=== PATIENT | male | born 1955 | race African-American/Black ===

== ENCOUNTER 2018-07-01 15:40 | Inpatient (IN) | payer SELFPAY ==
[~2018-07-01] VITALS: Ht 188 cm; Wt 40.4 kg
[2018-07-01 15:42] VITALS: BP 222/117
--- NOTE | 2018-07-01 15:42 | NUR ---
ED Nurse Note: Marily nice c/o hypertension today, patient reports of having nauea for 4 days a well, at time of arrival patients blood pressure was 243/117. patient denies any loss of consciousness, denies any vision changes. patient is alert and oriented x4. denies any pain, 2 20 gauges started on patients left hand.
--- NOTE | 2018-07-01 15:49 | Emergency Room Report ---
History of Present Illness General Chief Complaint: Hypertension Source: Patient Present Illness HPI Patient is a 62-year-old male brought in by EMS after increased blood pressure. Patient was noted to have prior history of hypertension. He reports having recently been taken off of his nifedipine extended release. Patient normally takes hydralazine as well Coreg. He reports having some increased generalized weakness. Reports having some prior history of congestive heart failure. He states that he is currently a smoker.Patient denies any fever or vomiting. He reports having prior history of chronic back pain for which he takes gabapentin but is been out of this lately. Allergies: Coded Allergies: No Known Allergies (Unverified , 07/01/18) Patient History Past Medical History: see triage record Reviewed Nursing Documentation: PMH: Agreed; PSxH: Agreed Physical Exam Vital Signs Date Time Temp Pulse Resp B/P (MAP) Pulse Ox O2 Delivery O2 Flow Rate FiO2 07/01/18 15:36 69 16 222/117 6 Room Air Sp02 EP Interpretation: reviewed, normal General Appearance: normal inspection, well appearing, no apparent distress, alert, GCS 15, Chronically Ill Head: atraumatic ENT: normal ENT inspection, hearing grossly normal, normal voice, other - poor dentition Neck: normal inspection, full range of motion, supple, no bony tend Respiratory: normal inspection, no respiratory distress, no retraction, wheezing Cardiovascular #1: regular rate, rhythm, no edema Gastrointestinal: normal inspection, normal bowel sounds, non tender, soft, no guarding, no hernia Genitourinary: no CVA tenderness Musculoskeletal: normal inspection, back normal, normal range of motion Neurologic: normal inspection, alert, oriented x3, responsive, rapid transit operator III-XII nml as tested, speech normal Psychiatric: normal inspection, judgement/insight normal, mood/affect normal Skin: normal inspection, normal color, no rash Medical Decision Making Diagnostic Impression: Primary Impression: Uncontrolled hypertension Additional Impression: Hyponatremia ER Course . Patient presented for uncontrolled blood pressure and generalized weakness. Differential diagnosis include was not limited to myocardial infarction, hypertensive crisis, renal failure, substance abuse among others. Because of complexity of patient's case laboratory testing and imaging studies were ordered. Patient was noted to have elevated blood pressure and was started on IV hydralazine as well as given dose of Coreg. Patient was noted to have normal mental status. He states he had prior history of CHF. Urine drug screen was noted to be negative. EKG interpreted by me showed left ventricular hypertrophy with nonspecific ST changes. Patient's initial troponin was noted to be negative. Patient's BNP was noted to be somewhat elevated.Patient was noted to have some continued high blood pressure and was given clonidine. Dr. Isabel Melendez was contacted for inpatient management Laboratory Tests Test 07/04/18 05:10 07/04/18 17:15 07/05/18 05:38 White Blood Count 5.4 K/UL (4.8-10.8) 3.7 K/UL (4.8-10.8) L Red Blood Count 4.40 M/UL (4.70-6.10) L 3.94 M/UL (4.70-6.10) L Hemoglobin 13.2 G/DL (14.2-18.0) L 11.9 G/DL (14.2-18.0) L Hematocrit 39.7 % (42.0-52.0) L 35.1 % (42.0-52.0) L Mean Corpuscular Volume 90 FL (80-99) 89 FL (80-99) Mean Corpuscular Hemoglobin 30.0 PG (27.0-31.0) 30.3 PG (27.0-31.0) Mean Corpuscular Hemoglobin Concent 33.2 G/DL (32.0-36.0) 33.9 G/DL (32.0-36.0) Red Cell Distribution Width 13.7 % (11.6-14.8) 13.3 % (11.6-14.8) Platelet Count 241 K/UL (150-450) 193 K/UL (150-450) Mean Platelet Volume 6.6 FL (6.5-10.1) 6.6 FL (6.5-10.1) Neutrophils (%) (Auto) 76.3 % (45.0-75.0) H % (45.0-75.0) Lymphocytes (%) (Auto) 8.6 % (20.0-45.0) L % (20.0-45.0) Monocytes (%) (Auto) 13.5 % (1.0-10.0) H % (1.0-10.0) Eosinophils (%) (Auto) 0.7 % (0.0-3.0) % (0.0-3.0) Basophils (%) (Auto) 0.9 % (0.0-2.0) % (0.0-2.0) Sodium Level 127 MMOL/L (136-145) L 129 MMOL/L (136-145) L Potassium Level 4.2 MMOL/L (3.5-5.1) 4.3 MMOL/L (3.5-5.1) Chloride Level 94 MMOL/L (98-107) L 97 MMOL/L (98-107) L Carbon Dioxide Level 23 MMOL/L (21-32) 22 MMOL/L (21-32) Anion Gap 10 mmol/L (5-15) 10 mmol/L (5-15) Blood Urea Nitrogen 13 mg/dL (7-18) 16 mg/dL (7-18) Creatinine 1.5 MG/DL (0.55-1.30) H 1.4 MG/DL (0.55-1.30) H Estimate Glomerular Filtration Rate 57.4 mL/min (>60) > 60 mL/min (>60) Glucose Level 129 MG/DL (74-106) H 96 MG/DL (74-106) Osmolality 268 mOsm/kg (297-317) L 271 mOsm/kg (297-317) L Uric Acid 5.9 MG/DL (2.6-7.2) 6.5 MG/DL (2.6-7.2) Calcium Level 9.3 MG/DL (8.5-10.1) 8.7 MG/DL (8.5-10.1) Phosphorus Level 3.2 MG/DL (2.5-4.9) 3.1 MG/DL (2.5-4.9) Magnesium Level 2.1 MG/DL (1.8-2.4) 1.8 MG/DL (1.8-2.4) Total Bilirubin 0.6 MG/DL (0.2-1.0) 0.3 MG/DL (0.2-1.0) Aspartate Amino Transferase (AST) 19 U/L (15-37) 22 U/L (15-37) Alanine Aminotransferase (ALT) 24 U/L (12-78) 18 U/L (12-78) Alkaline Phosphatase 82 U/L (46-116) 66 U/L (46-116) C-Reactive Protein, Quantitative 2.9 mg/dL (0.00-0.90) H 8.3 mg/dL (0.00-0.90) H Pro-B-Type Natriuretic Peptide 141 pg/mL (0-125) H Total Protein 8.1 G/DL (6.4-8.2) 7.0 G/DL (6.4-8.2) Albumin 3.6 G/DL (3.4-5.0) 3.0 G/DL (3.4-5.0) L Globulin 4.5 g/dL 4.0 g/dL Albumin/Globulin Ratio 0.8 (1.0-2.7) L 0.8 (1.0-2.7) L Urine Osmolality 383 mOsm/kg (429-449) L Urine Random Sodium < 20 mmol/L (20-110) L Differential Total Cells Counted 100 Neutrophils % (Manual) 49 % (45-75) Lymphocytes % (Manual) 35 % (20-45) Monocytes % (Manual) 13 % (1-10) H Eosinophils % (Manual) 3 % (0-3) Basophils % (Manual) 0 % (0-2) Band Neutrophils 0 % (0-8) Platelet Estimate Adequate Platelet Morphology Normal Red Blood Cell Morphology Normal Erythrocyte Sedimentation Rate 44 MM/HR (0-20) H Prothrombin Time 11.3 SEC (9.30-11.50) Prothrombin Time INR 1.1 (0.9-1.1) PTT 33 SEC (23-33) Lipase 66 U/L (73-393) L EKG Diagnostic Results Rate: normal Rhythm: NSR ST Segments: no acute changes Last Vital Signs Date Time Temp Pulse Resp B/P (MAP) Pulse Ox O2 Delivery O2 Flow Rate FiO2 07/01/18 15:36 69 16 222/117 6 Room Air Status: unchanged Disposition: ADMITTED INPATIENT Condition: Stable Jacob Cerna MD Jul 01, 2018 15:49
[2018-07-01] MEDS ORDERED: Albuterol/Ipratropium 3ml neb HHN ONE (16:00)
[2018-07-01] MEDS ORDERED: Carvedilol 25mg Tab ORAL ONE (16:00)
--- NOTE | 2018-07-01 16:05 | NUR ---
ED Nurse Note: pulled out 4 100mg of gabapentin from pyxis. no available 400mg tab
[2018-07-01] MEDS ORDERED: FUROSEMIDE20 M1 ORAL (16:34)
[2018-07-01] MEDS ORDERED: PANTOPRAZOLE SO40 MG ORAL (16:34)
[2018-07-01] MEDS ORDERED: FERROUS SULFAT325 MG ORAL ×2 (16:34→18:42)
[2018-07-01] MEDS ORDERED: LOSARTAN POTASS50 MG ORAL (16:34)
[2018-07-01] MEDS ORDERED: LIPITOR40 MG ORAL (16:34)
[2018-07-01] MEDS ORDERED: CARAFATE1 G1 ORAL (16:34)
[2018-07-01] MEDS ORDERED: HYDRALAZINE HC100 MG ORAL (16:34)
[2018-07-01] MEDS ORDERED: FOLIC ACID1 MG ORAL (16:34)
[2018-07-01 16:48] LABS: ANION GAP 12 mmol/L (5-15); BASOPHILS % (AUTO) 2.3 % (0.0-2.0); BLOOD UREA NITROGEN 6 mg/dL (7-18); CALCIUM 8.9 MG/DL (8.5-10.1); CARBON DIOXIDE 24 MMOL/L (21-32); CHLORIDE 89 MMOL/L (98-107); CREATININE 1.1 MG/DL (0.55-1.30); EOSINOPHILS % (AUTO) 2.7 % (0.0-3.0); HEMATOCRIT 36.2 % (42.0-52.0); HEMOGLOBIN 12.3 G/DL (14.2-18.0); LYMPHOCYTES % (AUTO) 22.8 % (20.0-45.0); MEAN CORPUSCULAR VOLUME 87 FL (80-99); MONOCYTES % (AUTO) 12.8 % (1.0-10.0); NEUTROPHILS % (AUTO) 59.4 % (45.0-75.0); PLATELET COUNT 242 K/UL (150-450); POTASSIUM 3.9 MMOL/L (3.5-5.1); RED BLOOD COUNT 4.14 M/UL (4.70-6.10); RED CELL DISTRIBUTION WIDTH 13.4 % (11.6-14.8); SODIUM 125 MMOL/L (136-145); WHITE BLOOD COUNT 7.2 K/UL (4.8-10.8)
[2018-07-01 16:58] LABS: ALANINE AMINOTRANSFERASE 27 U/L (12-78); ALBUMIN 3.6 G/DL (3.4-5.0); ALBUMIN/GLOBULIN RATIO 0.9 (1.0-2.7); ALKALINE PHOSPHATASE 80 U/L (46-116); ASPARTATE AMINO TRANSFERASE 54 U/L (15-37); BILIRUBIN,TOTAL 0.3 MG/DL (0.2-1.0)
[2018-07-01 16:59] LABS: APPEARANCE,URINE CLEAR; BILIRUBIN, URINE NEGATIVE (NEGATIVE); COLOR,URINE PALE YELLOW; GLUCOSE, URINE (UA) NEGATIVE (NEGATIVE); KETONES,URINE NEGATIVE (NEGATIVE); LEUKOCYTE ESTERASE ,URINE NEGATIVE (NEGATIVE); NITRITE,URINE NEGATIVE (NEGATIVE); PH,URINE 6 (4.5-8.0); PROTEIN,URINE 1+ (NEGATIVE); UROBILINOGEN,URINE NORMAL MG/DL (0.0-1.0)
[2018-07-01 18:17] VITALS: BP 192/88
--- NOTE | 2018-07-01 18:18 | NUR ---
ED Nurse Note: informed Dr. Cerna of patient's current blood pressure.
[2018-07-01] MEDS ORDERED: SUCRALFATE1 GM ORAL (18:41)
[2018-07-01] MEDS ORDERED: CARVEDILOL25 MG ORAL (18:45)
[2018-07-01] MEDS ORDERED: POTASSIUM CHLO10 ME3 ORAL (18:45)
--- NOTE | 2018-07-01 19:45 | NUR ---
TRANSFER TO FLOOR: Patient transferred to Telemetry as ordered, per . Report given to RAMESH Wheeler
--- NOTE | 2018-07-01 19:50 | NUR ---
NURSE NOTES: Received patient from ED per RAMESH Guzman. Patient able to ambulate from stretcher to bed with no signs of distress at this time. AOx4, denies pain, denies having seizures for years. On closely monitoring for High BP. On room air. Urinal provided. IV site Left hand intact and patent. Skin intact. Bed brakes engaged. Padded side rails for seizure precautions. Call light within reach. Belongings went over along with Co-RN. Stayed with patient.
--- NOTE | 2018-07-01 20:31 | NUR ---
NURSE NOTES: Called Dr. Bassett at this time for admission orders. Awaiting for call back.
--- NOTE | 2018-07-01 20:32 | Cardiology Progress Note ---
Assessment/Plan Assessment/Plan The patient is seen and examined, full consult note is dictated. Objective Last 24 Hour Vital Signs Date Time Temp Pulse Resp B/P (MAP) Pulse Ox O2 Delivery O2 Flow Rate FiO2 07/01/18 18:17 98.2 72 18 192/88 98 Room Air 07/01/18 16:43 207/99 07/01/18 16:17 71 206/100 07/01/18 16:10 73 18 Room Air 21 07/01/18 16:08 73 18 98 Room Air 21 07/01/18 15:58 224/101 07/01/18 15:42 98.2 72 16 222/117 99 Room Air 07/01/18 15:42 69 16 Room Air 07/01/18 15:36 69 16 222/117 6 Room Air Laboratory Tests Test 07/01/18 16:20 White Blood Count 7.2 K/UL (4.8-10.8) Red Blood Count 4.14 M/UL (4.70-6.10) L Hemoglobin 12.3 G/DL (14.2-18.0) L Hematocrit 36.2 % (42.0-52.0) L Mean Corpuscular Volume 87 FL (80-99) Mean Corpuscular Hemoglobin 29.7 PG (27.0-31.0) Mean Corpuscular Hemoglobin Concent 34.0 G/DL (32.0-36.0) Red Cell Distribution Width 13.4 % (11.6-14.8) Platelet Count 242 K/UL (150-450) Mean Platelet Volume 5.7 FL (6.5-10.1) L Neutrophils (%) (Auto) 59.4 % (45.0-75.0) Lymphocytes (%) (Auto) 22.8 % (20.0-45.0) Monocytes (%) (Auto) 12.8 % (1.0-10.0) H Eosinophils (%) (Auto) 2.7 % (0.0-3.0) Basophils (%) (Auto) 2.3 % (0.0-2.0) H Urine Color Pale yellow Urine Appearance Clear Urine pH 6 (4.5-8.0) Urine Specific [place] 1.005 (1.005-1.035) Urine Protein 1+ (NEGATIVE) H Urine Glucose (UA) Negative (NEGATIVE) Urine Ketones Negative (NEGATIVE) Urine Blood Negative (NEGATIVE) Urine Nitrite Negative (NEGATIVE) Urine Bilirubin Negative (NEGATIVE) Urine Urobilinogen Normal MG/DL (0.0-1.0) Urine Leukocyte Esterase Negative (NEGATIVE) Urine RBC 0-2 /HPF (0 - 0) H Urine WBC 0-2 /HPF (0 - 0) Urine Squamous Epithelial Cells None /LPF (NONE/OCC) Urine Bacteria Few /HPF (NONE) Sodium Level 125 MMOL/L (136-145) L Potassium Level 3.9 MMOL/L (3.5-5.1) Chloride Level 89 MMOL/L (98-107) L Carbon Dioxide Level 24 MMOL/L (21-32) Anion Gap 12 mmol/L (5-15) Blood Urea Nitrogen 6 mg/dL (7-18) L Creatinine 1.1 MG/DL (0.55-1.30) Estimat Glomerular Filtration Rate > 60 mL/min (>60) Glucose Level 84 MG/DL (74-106) Calcium Level 8.9 MG/DL (8.5-10.1) Total Bilirubin 0.3 MG/DL (0.2-1.0) Aspartate Amino Transf (AST/SGOT) 54 U/L (15-37) H Alanine Aminotransferase (ALT/SGPT) 27 U/L (12-78) Alkaline Phosphatase 80 U/L (46-116) Troponin I 0.006 ng/mL (0.000-0.056) Pro-B-Type Natriuretic Peptide 587 pg/mL (0-125) H Total Protein 7.7 G/DL (6.4-8.2) Albumin 3.6 G/DL (3.4-5.0) Globulin 4.1 g/dL Albumin/Globulin Ratio 0.9 (1.0-2.7) L Lipase 110 U/L (73-393) Urine Opiates Screen Negative (NEGATIVE) Urine Barbiturates Screen Negative (NEGATIVE) Phencyclidine (PCP) Screen Negative (NEGATIVE) Urine Amphetamines Screen Negative (NEGATIVE) Urine Benzodiazepines Screen Negative (NEGATIVE) Urine Cocaine Screen Negative (NEGATIVE) Urine Marijuana (THC) Screen Negative (NEGATIVE) Reece Remy MD Jul 01, 2018 20:32
--- NOTE | 2018-07-01 21:00 | NUR ---
NURSE NOTES: Dr. Bassett responded at this time with admission orders as well as Am Labs to draw. Patient has been cooperative and calm.
--- NOTE | 2018-07-01 21:25 | NUR ---
NURSE NOTES: Dr. Remy visited and assessed patient's condition at this time.
[2018-07-01] MEDS ORDERED: HYDROcodone/Acetamin 5/325 tab ORAL PRN (21:45)
[2018-07-01] MEDS ORDERED: Acetaminophen 500mg (ES) tab ORAL PRN (21:45)
[2018-07-01] MEDS ORDERED: cloNIDine 0.2mg Tab ORAL PRN (22:00)
[2018-07-01 22:30] VITALS: BP 140/86
[2018-07-01] MEDS: Minoxidil 2.5mg tab ORAL SCH (23:19)
[2018-07-02] VITALS: BP 153/81
--- NOTE | 2018-07-02 01:15 | Consultation ---
DATE OF CONSULTATION: 07/01/2018 CARDIOLOGY CONSULTATION: CONSULTING PHYSICIAN: Reece Remy M.D. REFERRING PHYSICIAN: Isabel Bassett M.D. REASON FOR CONSULTATION: Management of accelerated hypertension. HISTORY OF PRESENT ILLNESS: The patient is a very unfortunate 62-year-old gentleman, brought in by EMS for evaluation and management of abdominal pain. The patient was noted to have high blood pressure. Apparently has been off his usual blood pressure medications, which includes nifedipine, hydralazine, and Coreg. He had some associated generalized weakness. His cardiovascular history is significant for hypertension and congestive heart failure as well as tobacco use. He denies any recreational drug use. At the time of arrival to the hospital, blood pressure was 222/117 mmHg and heart rate of 69. The patient was admitted to the telemetry unit for further evaluation and management. Cardiology consultation was made at request of Dr. Bassett. PAST MEDICAL HISTORY: 1. History of hypertension. 2. History of congestive heart failure. 3. History of chronic back pain. ALLERGIES: No known drug allergies. PAST SURGICAL HISTORY: None. SOCIAL HISTORY: Denies any illicit drug use, but smokes about half a pack a day for many years. Denies any alcohol drinking. FAMILY HISTORY: No premature coronary artery disease or arrhythmogenic in the first-degree relatives. REVIEW OF SYSTEMS: A 12-system review was done essentially negative except what was mentioned in the history of present illness. MEDICATIONS: List of medications Lipitor 40 mg p.o. daily, carvedilol 25 mg q.12 hours, ferrous sulfate 325 mg twice a daily, folic acid 1 mg p.o. daily, furosemide 20 mg p.o. daily, hydralazine 100 mg q.8 hours, losartan 50 mg p.o. daily, pantoprazole 40 mg p.o. daily, potassium chloride 10 mEq daily, and Carafate 1 g 3 times a day. PHYSICAL EXAMINATION: VITAL SIGNS: Blood pressure at the time of arrival to the hospital 222/117 mmHg, pulse of 69, respirations of 16, O2 saturation 99% on room air, temperature 98.2 degrees Fahrenheit. GENERAL: The patient is a very unfortunate 62-year-old gentleman, in no apparent respiratory distress. Alert and oriented x4. HEENT: Atraumatic, normocephalic. Anicteric. Pupils are equal, round, and reactive to light and accommodation. Extraocular muscles intact. NECK: JVP less than 5 cm. No carotid bruit. Carotid upstroke is 2+ bilaterally. CARDIOVASCULAR: Normal S1, S2. Regular rate and rhythm. No murmurs, gallops, or rubs. PMI is at fourth intercostal space in the midclavicular line. LUNGS: Clear to auscultation bilaterally. ABDOMEN: Soft, nontender, nondistended. No hepatosplenomegaly. Positive bowel sounds. EXTREMITIES: No evidence of edema, clubbing, or cyanosis. LABORATORY FINDINGS: Sodium 125, potassium 3.9, chloride 89, bicarbonate 24, BUN of 6, creatinine 1.1, glucose is 84, and calcium is 8.9. Troponin I 0.006. ProBNP was 587. WBC 7.3, hemoglobin of 12.3, hematocrit 36.2, and platelet count is 242. Toxicology was negative. A 12-lead electrocardiogram showed sinus rhythm with no acute ST and T-wave abnormalities with left ventricular hypertrophy and LVH repolarization abnormalities. ASSESSMENT AND PLAN: The patient is a very unfortunate 62-year-old gentleman, seen in Cardiology consultation. 1. Accelerated hypertension. I would like to resume the patient on nifedipine ER 90 mg daily. We will continue with hydralazine and I would place the patient on minoxidil 5 mg twice a day as well. 2. History of congestive heart failure. We will obtain 2D echocardiography for assessment of LV systolic and diastolic function. Clinically, the patient does not appear to be in heart failure. 3. Hyponatremia could be secondary to diuretics, Nephrology consultation is warranted. I would like to thank Dr. Bassett for the courtesy of this consultation. Reece Remy M.D. DR: TAB JOB#: [id number] CC:
--- NOTE | 2018-07-02 02:30 | History and Physical Report ---
DATE OF ADMISSION: 07/01/2018 HISTORY OF PRESENT ILLNESS: The patient is admitted for uncontrolled hypertension. The patient also complained of nausea, dizziness, headache, and cough. The patient denies vomiting, denies diarrhea, and denies wheezing. PAST MEDICAL HISTORY: Significant for hyperlipidemia, hypertension, iron-deficiency anemia, leg edema, GERD. PAST SURGICAL HISTORY: Appendectomy, hernia surgery. SOCIAL HISTORY: History of smoking, history of drug abuse. No history of alcohol abuse. ALLERGIES: No known allergies. MEDICATIONS: Coreg, ferrous sulfate, folic acid, Lasix, hydralazine, losartan, Protonix, potassium, and Carafate. FAMILY HISTORY: Noncontributory. REVIEW OF SYSTEMS: HEENT: He does have headache and dizziness. CHEST: Denies shortness of breath. Does have cough. CARDIOVASCULAR: Denies chest pain. Denies orthopnea. GASTROINTESTINAL: Denies nausea, vomiting, or diarrhea. Does have heartburn. EXTREMITIES: Denies lower extremity pain. ELECTROMECHANICAL INSPECTOR: No change in speech pattern. PHYSICAL EXAMINATION: VITAL SIGNS: Temperature 98.2, pulse is 71, blood pressure 206/100. HEENT: PERRLA. NECK: Supple. No lymphadenopathy. CHEST: Clear to auscultation. CARDIOVASCULAR: Regular rate and rhythm. No murmurs at this time. GASTROINTESTINAL: Soft. Positive bowel sounds. No organomegaly. EXTREMITIES: 1+ edema. Reflexes in both sides. Moves all four extremities. LABORATORY DATA: WBC of 7.2, hemoglobin 12.3, and platelets of 342,000. Sodium 125, 3.9 of potassium, BUN of 6, and creatinine 1.1. ASSESSMENT AND PLAN: 1. Hyponatremia, uncontrolled. 2. Hypertension. 3. CHF. I have asked Dr. Sapp as well as Dr. Remy to see the patient for the above-mentioned diagnoses and treatment. Isabel Bassett M.D. DR: CRISTIANO JOB#: [id number] CC:
[2018-07-02 04:00] VITALS: BP 124/72
[2018-07-02] MEDS: Sucralfate 1gm tab ORAL SCH ×3 (05:41→16:30)
[2018-07-02] MEDS ORDERED: HydrALAZINE 50mg tab ORAL SCH (06:00)
[2018-07-02 06:22] LABS: BASOPHILS % (AUTO) 0.7 % (0.0-2.0); EOSINOPHILS % (AUTO) 3.3 % (0.0-3.0); HEMATOCRIT 37.5 % (42.0-52.0); HEMOGLOBIN 12.8 G/DL (14.2-18.0); LYMPHOCYTES % (AUTO) 18.1 % (20.0-45.0); MEAN CORPUSCULAR VOLUME 88 FL (80-99); MONOCYTES % (AUTO) 13.2 % (1.0-10.0); NEUTROPHILS % (AUTO) 64.6 % (45.0-75.0); PLATELET COUNT 238 K/UL (150-450); RED BLOOD COUNT 4.25 M/UL (4.70-6.10); RED CELL DISTRIBUTION WIDTH 13.7 % (11.6-14.8); WHITE BLOOD COUNT 6.6 K/UL (4.8-10.8)
[2018-07-02 07:09] LABS: ALANINE AMINOTRANSFERASE 23 U/L (12-78); ALBUMIN 3.2 G/DL (3.4-5.0); ALBUMIN/GLOBULIN RATIO 0.8 (1.0-2.7); ALKALINE PHOSPHATASE 84 U/L (46-116); ANION GAP 10 mmol/L (5-15); ASPARTATE AMINO TRANSFERASE 37 U/L (15-37); BILIRUBIN,TOTAL 0.6 MG/DL (0.2-1.0); BLOOD UREA NITROGEN 8 mg/dL (7-18); CARBON DIOXIDE 25 MMOL/L (21-32); CHLORIDE 91 MMOL/L (98-107); CREATININE 1.2 MG/DL (0.55-1.30); POTASSIUM 3.8 MMOL/L (3.5-5.1); SODIUM 126 MMOL/L (136-145)
--- NOTE | 2018-07-02 07:09 | NUR ---
CASE MANAGEMENT:REVIEW 62 YR OLD MALE BIBA FROM "[facility]" CC: NOT FEELING WELL X4 DAYS. GENERALIZED WEAKNESS SI: UNCONTROLLED HTN. 98.2 69 16 222/117 99% ON RA NA-125 IS: IV HYDRALAZINE IV LASIX COREG PO DUONEB CLONIDINE PO NEURONTIN PO : TO TELEMETRY *INTERQUAL CRITERIA MET
--- NOTE | 2018-07-02 07:26 | NUR ---
HAND-OFF: Report given to RAMESH Reilly. Endorsed plan of care.
--- NOTE | 2018-07-02 07:47 | NUR ---
NURSE NOTES: Received report from RAMESH Wheeler. Pt is sitting up in bed. Denies any pain at this time. Bed is in lowest position, side rails up X2, and call light is within reach. Will continue to monitor.
[2018-07-02 08:00] VITALS: BP 127/71
[2018-07-02 08:28] LABS: CHOLESTEROL 119 MG/DL (< 200); HDL CHOLESTEROL 86 MG/DL (40-60); TRIGLYCERIDES 37 MG/DL (30-150)
[2018-07-02] MEDS: Minoxidil 2.5mg tab ORAL SCH (08:48)
[2018-07-02] MEDS: Losartan 50mg tab ORAL SCH (08:48)
[2018-07-02] MEDS: Atorvastatin 80mg tab ORAL SCH (08:48)
[2018-07-02] MEDS ORDERED: Carvedilol 25mg Tab ORAL SCH (09:00)
--- NOTE | 2018-07-02 09:34 | Consultation ---
Consult Note Consult Note asked to eval for low Na Patient is a 62-year-old male brought in by EMS after increased blood pressure. Patient was noted to have prior history of hypertension. He reports having recently been taken off of his nifedipine extended release. Patient normally takes hydralazine as well Coreg. He reports having some increased generalized weakness. Reports having some prior history of congestive heart failure. He states that he is currently a smoker.Patient denies any fever or vomiting. He reports having prior history of chronic back pain for which he takes gabapentin but is been out of this lately. No Known Allergies (Unverified , 07/01/18) Past Medical History: see triage record Reviewed Nursing Documentation: PMH: Agreed; PSxH: Agreed 1. History of hypertension. 2. History of congestive heart failure. 3. History of chronic back pain. Assessment/Plan Hypertensive Urgency Low Na likely depletional CHF Chronic pain 3% saline Adjust BP meds per orders CXR 2D Echo monitor Edy Newby MD Jul 02, 2018 09:34
--- NOTE | 2018-07-02 10:20 | Diagnostic Imaging Report ---
Indication: Shortness of breath Technique: One view of the chest Comparison: none Findings: Lungs and pleural spaces are clear. Heart size is normal. The aorta is tortuous and calcified Impression: No acute process
[2018-07-02] MEDS ORDERED: NaCl 3% 500ml 500 ML IV ONE (11:00)
[2018-07-02 12:00] VITALS: BP 124/68
[2018-07-02] MEDS: HydrALAZINE 50mg tab ORAL SCH ×2 (13:19→22:20)
--- NOTE | 2018-07-02 13:21 | General Progress Note ---
Assessment/Plan Problem List: (1) Uncontrolled hypertension ICD Codes: I10 - Essential (primary) hypertension SNOMED: 90219111, [id number] Status: progressing Assessment/Plan afebrile htn bp is improving no headache abdominal pain Subjective ROS Limited/Unobtainable: Yes Allergies: Coded Allergies: No Known Allergies (Unverified , 07/01/18) Objective Last 24 Hour Vital Signs Date Time Temp Pulse Resp B/P (MAP) Pulse Ox O2 Delivery O2 Flow Rate FiO2 07/02/18 13:19 124/68 07/02/18 12:00 97.9 66 17 124/68 (86) 96 66 07/02/18 09:00 Room Air 07/02/18 08:48 127/71 07/02/18 08:48 71 127/71 07/02/18 08:48 127/71 07/02/18 08:44 75 07/02/18 08:00 71 07/02/18 08:00 98.7 71 19 127/71 (89) 96 71 07/02/18 05:41 124/72 07/02/18 04:00 98.2 71 19 124/72 (89) 96 71 07/02/18 03:27 65 07/02/18 00:00 98.2 74 18 153/81 (105) 95 74 07/01/18 23:26 72 07/01/18 23:20 77 153/81 07/01/18 23:19 153/81 07/01/18 22:30 98.5 71 18 140/86 (104) 97 71 07/01/18 21:00 Room Air 07/01/18 20:32 Room Air 07/01/18 19:45 98.2 72 18 151/82 98 Room Air 21 07/01/18 18:17 98.2 72 18 192/88 98 Room Air 07/01/18 16:43 207/99 07/01/18 16:17 71 206/100 07/01/18 16:10 73 18 Room Air 21 07/01/18 16:08 73 18 98 Room Air 21 07/01/18 15:58 224/101 07/01/18 15:42 98.2 72 16 222/117 99 Room Air 07/01/18 15:42 69 16 Room Air 07/01/18 15:36 69 16 222/117 6 Room Air Intake and Output 07/01/18 07/02/18 19:00 07:00 Intake Total 100 ml 880 ml Output Total 1100 ml Balance 100 ml -220 ml Intake Oral 100 ml 880 ml Output Urine Total 1100 ml # Voids 2 Laboratory Tests 07/01/18 16:20: White Blood Count 7.2, Red Blood Count 4.14L, Hemoglobin 12.3L, Hematocrit 36.2L , Mean Corpuscular Volume 87, Mean Corpuscular Hemoglobin 29.7, Mean Corpuscular Hemoglobin Concent 34.0, Red Cell Distribution Width 13.4, Platelet Count 242, Mean Platelet Volume 5.7L, Neutrophils (%) (Auto) 59.4, Lymphocytes ( %) (Auto) 22.8, Monocytes (%) (Auto) 12.8H, Eosinophils (%) (Auto) 2.7, Basophils (%) (Auto) 2.3H, Urine Color Pale yellow, Urine Appearance Clear, Urine pH 6, Urine Specific [place] 1.005, Urine Protein 1+H, Urine Glucose (UA) Negative, Urine Ketones Negative, Urine Blood Negative, Urine Nitrite Negative, Urine Bilirubin Negative, Urine Urobilinogen Normal, Urine Leukocyte Esterase Negative, Urine RBC 0-2H, Urine WBC 0-2, Urine Squamous Epithelial Cells None, Urine Bacteria Few, Sodium Level 125L, Potassium Level 3.9, Chloride Level 89L, Carbon Dioxide Level 24, Anion Gap 12, Blood Urea Nitrogen 6L, Creatinine 1.1, Estimat Glomerular Filtration Rate > 60, Glucose Level 84, Calcium Level 8.9, Total Bilirubin 0.3, Aspartate Amino Transf (AST/SGOT) 54H, Alanine Aminotransferase (ALT/SGPT) 27, Alkaline Phosphatase 80, Troponin I 0.006, Pro-B -Type Natriuretic Peptide 587H, Total Protein 7.7, Albumin 3.6, Globulin 4.1, Albumin/Globulin Ratio 0.9L, Lipase 110, Urine Opiates Screen Negative, Urine Barbiturates Screen Negative, Phencyclidine (PCP) Screen Negative, Urine Amphetamines Screen Negative, Urine Benzodiazepines Screen Negative, Urine Cocaine Screen Negative, Urine Marijuana (THC) Screen Negative 07/02/18 05:00: White Blood Count 6.6, Red Blood Count 4.25L, Hemoglobin 12.8L, Hematocrit 37.5L , Mean Corpuscular Volume 88, Mean Corpuscular Hemoglobin 30.2, Mean Corpuscular Hemoglobin Concent 34.2, Red Cell Distribution Width 13.7, Platelet Count 238, Mean Platelet Volume 6.0L, Neutrophils (%) (Auto) 64.6, Lymphocytes ( %) (Auto) 18.1L, Monocytes (%) (Auto) 13.2H, Eosinophils (%) (Auto) 3.3H, Basophils (%) (Auto) 0.7, Sodium Level 126L, Potassium Level 3.8, Chloride Level 91L, Carbon Dioxide Level 25, Anion Gap 10, Blood Urea Nitrogen 8, Creatinine 1.2, Estimat Glomerular Filtration Rate > 60, Glucose Level 108H, Calcium Level 9.0, Total Bilirubin 0.6, Aspartate Amino Transf (AST/SGOT) 37, Alanine Aminotransferase (ALT/SGPT) 23, Alkaline Phosphatase 84, Total Protein 7.2, Albumin 3.2L, Globulin 4.0, Albumin/Globulin Ratio 0.8L, Osmolality 268L, Uric Acid 6.2, Phosphorus Level 3.4, Magnesium Level 1.4L, Triglycerides Level 37, Cholesterol Level 119, LDL Cholesterol 22, HDL Cholesterol 86H, Cholesterol/ HDL Ratio 1.4L, Thyroid Stimulating Hormone (TSH) 1.218 Height (Feet): 6 Height (Inches): 2.00 Weight (Pounds): 89 Neck: supple Cardiovascular: normal rate Respiratory/Chest: lungs clear Abdomen: soft Isabel Bassett MD Jul 02, 2018 13:21
[2018-07-02] MEDS: Guaifenesin/DM 10ml syrup ORAL PRN ×3 (13:24→23:08)
[2018-07-02 16:00] VITALS: BP 128/76
--- NOTE | 2018-07-02 19:37 | NUR ---
HAND-OFF: Report given to Maxine Tafoya. Plan of care endorsed
--- NOTE | 2018-07-02 19:38 | NUR ---
NURSE NOTES: Received pt from RAMESH Reilly. Pt awake and resting. IV site intact. Bed in lowest position and call light within reach. Will endorse plan of care.
[2018-07-02 20:00] VITALS: BP 127/77
--- NOTE | 2018-07-02 20:07 | Consultation ---
History of Present Illness General Chief Complaint: Hypertension Present Illness Allergies: Coded Allergies: No Known Allergies (Unverified , 07/01/18) Medication History Scheduled Atorvastatin Calcium* (Lipitor*), 40 MG ORAL DAILY, (Reported) Carvedilol* (Carvedilol*), 25 MG ORAL EVERY 12 HOURS, (Reported) Ferrous Sulfate* (Ferrous Sulfate*), 325 MG ORAL TWICE A DAY, (Reported) Folic Acid* (Folic Acid*), 1 MG ORAL DAILY, (Reported) Hydralazine Hcl* (Hydralazine Hcl*), 100 MG ORAL EVERY 8 HOURS, (Reported) Losartan Potassium* (Losartan Potassium*), 50 MG ORAL DAILY, (Reported) Pantoprazole* (Pantoprazole*), 40 MG ORAL DAILY, (Reported) Potassium Chloride (Potassium Chloride), 10 MEQ ORAL DAILY, (Reported) Sucralfate* (Carafate*), 1 GM ORAL THREE TIMES A DAY, (Reported) Discontinued Medications Ferrous Sulfate* (Ferrous Sulfate*), 325 MG ORAL DAILY, (Reported) Discontinued Reason: Medication dose changed Furosemide* (Lasix*), 20 MG ORAL DAILY, (Reported) Discontinued Reason: MD discontinued med Patient History Healthcare decision maker Resuscitation status Full Code Advanced Directive on File No Physical Exam Last 24 Hour Vital Signs Date Time Temp Pulse Resp B/P (MAP) Pulse Ox O2 Delivery O2 Flow Rate FiO2 07/02/18 16:00 66 07/02/18 16:00 98.2 63 18 128/76 (93) 95 63 07/02/18 13:19 124/68 07/02/18 12:00 97.9 66 17 124/68 (86) 96 66 07/02/18 12:00 62 07/02/18 09:00 Room Air 07/02/18 08:48 127/71 07/02/18 08:48 71 127/71 07/02/18 08:48 127/71 07/02/18 08:44 75 07/02/18 08:00 71 07/02/18 08:00 98.7 71 19 127/71 (89) 96 71 07/02/18 05:41 124/72 07/02/18 04:00 98.2 71 19 124/72 (89) 96 71 07/02/18 03:27 65 07/02/18 00:00 98.2 74 18 153/81 (105) 95 74 07/01/18 23:26 72 07/01/18 23:20 77 153/81 07/01/18 23:19 153/81 07/01/18 22:30 98.5 71 18 140/86 (104) 97 71 07/01/18 21:00 Room Air 07/01/18 20:32 Room Air Intake and Output 07/01/18 07/02/18 19:00 07:00 Intake Total 100 ml 880 ml Output Total 1100 ml Balance 100 ml -220 ml Intake Oral 100 ml 880 ml Output Urine Total 1100 ml # Voids 2 Laboratory Tests Test 07/02/18 05:00 White Blood Count 6.6 K/UL (4.8-10.8) Red Blood Count 4.25 M/UL (4.70-6.10) L Hemoglobin 12.8 G/DL (14.2-18.0) L Hematocrit 37.5 % (42.0-52.0) L Mean Corpuscular Volume 88 FL (80-99) Mean Corpuscular Hemoglobin 30.2 PG (27.0-31.0) Mean Corpuscular Hemoglobin Concent 34.2 G/DL (32.0-36.0) Red Cell Distribution Width 13.7 % (11.6-14.8) Platelet Count 238 K/UL (150-450) Mean Platelet Volume 6.0 FL (6.5-10.1) L Neutrophils (%) (Auto) 64.6 % (45.0-75.0) Lymphocytes (%) (Auto) 18.1 % (20.0-45.0) L Monocytes (%) (Auto) 13.2 % (1.0-10.0) H Eosinophils (%) (Auto) 3.3 % (0.0-3.0) H Basophils (%) (Auto) 0.7 % (0.0-2.0) Sodium Level 126 MMOL/L (136-145) L Potassium Level 3.8 MMOL/L (3.5-5.1) Chloride Level 91 MMOL/L (98-107) L Carbon Dioxide Level 25 MMOL/L (21-32) Anion Gap 10 mmol/L (5-15) Blood Urea Nitrogen 8 mg/dL (7-18) Creatinine 1.2 MG/DL (0.55-1.30) Estimat Glomerular Filtration Rate > 60 mL/min (>60) Glucose Level 108 MG/DL (74-106) H Osmolality 268 mOsm/kg (297-317) L Uric Acid 6.2 MG/DL (2.6-7.2) Calcium Level 9.0 MG/DL (8.5-10.1) Phosphorus Level 3.4 MG/DL (2.5-4.9) Magnesium Level 1.4 MG/DL (1.8-2.4) L Total Bilirubin 0.6 MG/DL (0.2-1.0) Aspartate Amino Transf (AST/SGOT) 37 U/L (15-37) Alanine Aminotransferase (ALT/SGPT) 23 U/L (12-78) Alkaline Phosphatase 84 U/L (46-116) Total Protein 7.2 G/DL (6.4-8.2) Albumin 3.2 G/DL (3.4-5.0) L Globulin 4.0 g/dL Albumin/Globulin Ratio 0.8 (1.0-2.7) L Triglycerides Level 37 MG/DL (30-150) Cholesterol Level 119 MG/DL (< 200) LDL Cholesterol 22 mg/dL (<100) HDL Cholesterol 86 MG/DL (40-60) H Cholesterol/HDL Ratio 1.4 (3.3-4.4) L Thyroid Stimulating Hormone (TSH) 1.218 uiU/mL (0.358-3.740) Height (Feet): 6 Height (Inches): 2.00 Weight (Pounds): 89 Medications Current Medications Medications (Trade) Dose Ordered Sig/Dayan Route PRN Reason Start Time Stop Time Status Last Admin Dose Admin Acetaminophen (Tylenol) 500 mg Q4H PRN ORAL Mild Pain/Temp > 100.5 07/01/18 21:45 07/31/18 21:44 Acetaminophen/ Hydrocodone Bitart ([place] 5/325) 1 tab Q6H PRN ORAL For Pain 07/01/18 21:45 07/08/18 21:44 Atorvastatin Calcium (Lipitor) 40 mg DAILY ORAL 07/02/18 09:00 08/01/18 08:59 07/02/18 08:48 Carvedilol (Coreg) 25 mg EVERY 12 HOURS ORAL 07/02/18 21:00 08/01/18 08:59 Clonidine HCl (Catapres Tab) 0.1 mg Q4H PRN ORAL SBP>160 07/02/18 09:45 08/01/18 09:44 Gabapentin (Neurontin) 100 mg THREE TIMES A DAY ORAL 07/02/18 13:00 08/01/18 12:59 07/02/18 17:42 Gabapentin (Neurontin) 300 mg BEDTIME ORAL 07/02/18 21:00 08/01/18 20:59 Guaifenesin/ Dextromethorphan (Robitussin DM Syrup) 5 ml Q4H PRN ORAL For Cough 07/01/18 21:45 07/31/18 21:44 07/02/18 18:41 Hydralazine HCl (Apresoline) 100 mg Q8HR ORAL 07/02/18 14:00 08/01/18 05:59 07/02/18 13:19 Losartan Potassium (Cozaar) 50 mg DAILY ORAL 07/02/18 09:00 08/01/18 08:59 07/02/18 08:48 Nifedipine (Procardia XL) 90 mg DAILY ORAL 07/01/18 22:00 07/31/18 21:59 07/02/18 08:44 Pantoprazole (Protonix) 40 mg BID ORAL 07/02/18 18:00 08/01/18 08:59 07/02/18 17:43 Sodium Chloride 500 ml @ 30 mls/hr ONCE ONCE IV 07/02/18 11:00 07/03/18 03:39 07/02/18 10:29 Sucralfate (Carafate) 1 gm BEFORE MEALS ORAL 07/02/18 06:30 08/01/18 06:29 07/02/18 10:29 Assessment/Plan Assessment/Plan Hematology/Oncology Consult Chief Complaint: Hypertension Source: Patient DOS: 07/02/18 RFC: FTT RFA: HTN urgency HPI Patient is a 62-year-old male brought in by EMS after increased blood pressure. Patient was noted to have prior history of hypertension. He reports having recently been taken off of his nifedipine extended release. Patient normally takes hydralazine as well Coreg. He reports having some increased generalized weakness. Reports having some prior history of congestive heart failure. He states that he is currently a smoker.Patient denies any fever or vomiting. He reports having prior history of chronic back pain for which he takes gabapentin but is been out of this lately. Allergies: No Known Allergies (Unverified , 07/01/18) Past Medical History: see triage record Reviewed Nursing Documentation: PMH: Agreed; PSxH: Agreed ROS: Constitutional: No fever, no chills, no night sweats, no fatigue Skin: No rashes, lumps, itchiness, dryness HEENT: No POWERS, ear ache, visual changes, double vision, nosebleeds, sore throat, lumps, swollen glands Breasts: No lumps, pain, discharge Pulmonary: No cough, sputum, shortness of breath, coughing up blood, hemoptysis Cardiovascular: No chest pain, tightness, palpitations, syncope, claudication, orthopnea, PND GI: No nausea, vomiting, diarrhea, melena, hematochezia, change in appetite, abdominal pain : No dysuria, frequency, urgency, urinary incontinence, foamy urine Musculoskeletal: No joint swelling or muscle pain, trauma, back pain Neurologic: No dizziness, fainting, seizures, changes in smell or taste Psychiatric: No nervousness, stress, or depression, anxiety, hallucinations Endocrine: No weight change, heat or cold intolerance, tremor, insomnia PE: Vitals: reviewed, weak cachectic, fatigued General Appearance: NAD HEENT: normocephalic, atraumatic Neck: non-tender, normal alignment Respiratory/Chest: nromal breath sounds bilaterally Cardiovascular/Chest: normal peripheral pulses, normal rate Abdomen: normal bowel sounds, soft, nontender Extremities: normal range of motion Laboratory Tests Test 07/02/18 05:00 White Blood Count 6.6 K/UL (4.8-10.8) Red Blood Count 4.25 M/UL (4.70-6.10) L Hemoglobin 12.8 G/DL (14.2-18.0) L Hematocrit 37.5 % (42.0-52.0) L Mean Corpuscular Volume 88 FL (80-99) Mean Corpuscular Hemoglobin 30.2 PG (27.0-31.0) Mean Corpuscular Hemoglobin Concent 34.2 G/DL (32.0-36.0) Red Cell Distribution Width 13.7 % (11.6-14.8) Platelet Count 238 K/UL (150-450) Mean Platelet Volume 6.0 FL (6.5-10.1) L Neutrophils (%) (Auto) 64.6 % (45.0-75.0) Lymphocytes (%) (Auto) 18.1 % (20.0-45.0) L Monocytes (%) (Auto) 13.2 % (1.0-10.0) H Eosinophils (%) (Auto) 3.3 % (0.0-3.0) H Basophils (%) (Auto) 0.7 % (0.0-2.0) Sodium Level 126 MMOL/L (136-145) L Potassium Level 3.8 MMOL/L (3.5-5.1) Chloride Level 91 MMOL/L (98-107) L Carbon Dioxide Level 25 MMOL/L (21-32) Anion Gap 10 mmol/L (5-15) Blood Urea Nitrogen 8 mg/dL (7-18) Creatinine 1.2 MG/DL (0.55-1.30) Estimat Glomerular Filtration Rate > 60 mL/min (>60) Glucose Level 108 MG/DL (74-106) H Osmolality 268 mOsm/kg (297-317) L Uric Acid 6.2 MG/DL (2.6-7.2) Calcium Level 9.0 MG/DL (8.5-10.1) Phosphorus Level 3.4 MG/DL (2.5-4.9) Magnesium Level 1.4 MG/DL (1.8-2.4) L Total Bilirubin 0.6 MG/DL (0.2-1.0) Aspartate Amino Transf (AST/SGOT) 37 U/L (15-37) Alanine Aminotransferase (ALT/SGPT) 23 U/L (12-78) Alkaline Phosphatase 84 U/L (46-116) Total Protein 7.2 G/DL (6.4-8.2) Albumin 3.2 G/DL (3.4-5.0) L Globulin 4.0 g/dL Albumin/Globulin Ratio 0.8 (1.0-2.7) L Triglycerides Level 37 MG/DL (30-150) Cholesterol Level 119 MG/DL (< 200) LDL Cholesterol 22 mg/dL (<100) HDL Cholesterol 86 MG/DL (40-60) H Cholesterol/HDL Ratio 1.4 (3.3-4.4) L Thyroid Stimulating Hormone (TSH) 1.218 uiU/mL (0.358-3.740) Assessment and Recs: # Failure to thrive - decreased bmi and low protein --> have ordered for cea level --> will also obtain q3d caloric counts --> have ordered for cea, other tumor markers as well --> may consider mirtazapine as appetite stimulant # Iron deficiency anemia, hgb stable 10-12 range --> okay to continue po ferrous sulfate # Uncontrolled hypertension --> currently improved --> cards eval prn basis, antihtn started # Hyponatremia - on ivf, 3% nacl as per renal --> appreciate renal recs # Hyperlipidemia, leg edema, GERD The timing of this note does not necessarily reflect the time of the patient was seen. Greatly appreciate consultation! Pj Irene MD Jul 02, 2018 20:07
[2018-07-02] MEDS: Carvedilol 25mg Tab ORAL SCH (21:07)
--- NOTE | 2018-07-02 23:00 | NUR ---
NURSE NOTES: Received report from Michelet CHANDLER. Pt in stable condition. Denies any pain. No s/s of distress noted. Pt resting in bed comfortably. Bed in low and locked position, call light within reach, bedside table within reach. Continue to monitor.
--- NOTE | 2018-07-02 23:21 | Cardiology Progress Note ---
Assessment/Plan Assessment/Plan 1. Accelerated hypertension, continue nifedipine ER 90, hydralazine and minoxidil. 2. History of congestive heart failure. 2D echocardiography reveals normal LV systolic function with mild LV diastolic CHF. 3. Hyponatremia could be secondary to diuretics, slightly better. Subjective Subjective Sinus rhythm at rate of 68. Objective Last 24 Hour Vital Signs Date Time Temp Pulse Resp B/P (MAP) Pulse Ox O2 Delivery O2 Flow Rate FiO2 07/02/18 22:20 139/78 07/02/18 21:07 68 137/75 07/02/18 21:00 Room Air 07/02/18 20:00 97.3 68 19 127/77 (94) 97 07/02/18 20:00 68 07/02/18 16:00 66 07/02/18 16:00 98.2 63 18 128/76 (93) 95 63 07/02/18 13:19 124/68 07/02/18 12:00 97.9 66 17 124/68 (86) 96 66 07/02/18 12:00 62 07/02/18 09:00 Room Air 07/02/18 08:48 127/71 07/02/18 08:48 71 127/71 07/02/18 08:48 127/71 07/02/18 08:44 75 07/02/18 08:00 71 07/02/18 08:00 98.7 71 19 127/71 (89) 96 71 07/02/18 05:41 124/72 07/02/18 04:00 98.2 71 19 124/72 (89) 96 71 07/02/18 03:27 65 07/02/18 00:00 98.2 74 18 153/81 (105) 95 74 07/01/18 23:26 72 07/01/18 23:20 77 153/81 07/01/18 23:19 153/81 Intake and Output 07/01/18 07/02/18 19:00 07:00 Intake Total 100 ml 880 ml Output Total 1100 ml Balance 100 ml -220 ml Intake Oral 100 ml 880 ml Output Urine Total 1100 ml # Voids 2 2D Echo: EF 60%, Mod LVH, Mod AR, Grade I LVDD, RVSP 11 mmHg Laboratory Tests Test 07/02/18 05:00 07/02/18 21:00 White Blood Count 6.6 K/UL (4.8-10.8) Red Blood Count 4.25 M/UL (4.70-6.10) L Hemoglobin 12.8 G/DL (14.2-18.0) L Hematocrit 37.5 % (42.0-52.0) L Mean Corpuscular Volume 88 FL (80-99) Mean Corpuscular Hemoglobin 30.2 PG (27.0-31.0) Mean Corpuscular Hemoglobin Concent 34.2 G/DL (32.0-36.0) Red Cell Distribution Width 13.7 % (11.6-14.8) Platelet Count 238 K/UL (150-450) Mean Platelet Volume 6.0 FL (6.5-10.1) L Neutrophils (%) (Auto) 64.6 % (45.0-75.0) Lymphocytes (%) (Auto) 18.1 % (20.0-45.0) L Monocytes (%) (Auto) 13.2 % (1.0-10.0) H Eosinophils (%) (Auto) 3.3 % (0.0-3.0) H Basophils (%) (Auto) 0.7 % (0.0-2.0) Differential Total Cells Counted 100 Neutrophils % (Manual) 69 % (45-75) Lymphocytes % (Manual) 18 % (20-45) L Monocytes % (Manual) 9 % (1-10) Eosinophils % (Manual) 2 % (0-3) Basophils % (Manual) 1 % (0-2) Band Neutrophils 1 % (0-8) Platelet Estimate Adequate Platelet Morphology Normal Red Blood Cell Morphology Normal Sodium Level 126 MMOL/L (136-145) L Potassium Level 3.8 MMOL/L (3.5-5.1) Chloride Level 91 MMOL/L (98-107) L Carbon Dioxide Level 25 MMOL/L (21-32) Anion Gap 10 mmol/L (5-15) Blood Urea Nitrogen 8 mg/dL (7-18) Creatinine 1.2 MG/DL (0.55-1.30) Estimat Glomerular Filtration Rate > 60 mL/min (>60) Glucose Level 108 MG/DL (74-106) H Osmolality 268 mOsm/kg (297-317) L Uric Acid 6.2 MG/DL (2.6-7.2) Calcium Level 9.0 MG/DL (8.5-10.1) Phosphorus Level 3.4 MG/DL (2.5-4.9) Magnesium Level 1.4 MG/DL (1.8-2.4) L Ferritin 128 NG/ML (8-388) Total Bilirubin 0.6 MG/DL (0.2-1.0) Aspartate Amino Transf (AST/SGOT) 37 U/L (15-37) Alanine Aminotransferase (ALT/SGPT) 23 U/L (12-78) Alkaline Phosphatase 84 U/L (46-116) Total Protein 7.2 G/DL (6.4-8.2) Albumin 3.2 G/DL (3.4-5.0) L Globulin 4.0 g/dL Albumin/Globulin Ratio 0.8 (1.0-2.7) L Triglycerides Level 37 MG/DL (30-150) Cholesterol Level 119 MG/DL (< 200) LDL Cholesterol 22 mg/dL (<100) HDL Cholesterol 86 MG/DL (40-60) H Cholesterol/HDL Ratio 1.4 (3.3-4.4) L Thyroid Stimulating Hormone (TSH) 1.218 uiU/mL (0.358-3.740) Carcinoembryonic Antigen Pending CA 15-3 Antigen Pending CA 19-9 Antigen Pending Objective HEENT: Atraumatic, normocephalic. Anicteric. Pupils are equal, round, and reactive to light and accommodation. Extraocular muscles intact. NECK: JVP less than 5 cm. No carotid bruit. Carotid upstroke is 2+ bilaterally. CARDIOVASCULAR: Normal S1, S2. Regular rate and rhythm. No murmurs, gallops, or rubs. PMI is at fourth intercostal space in the midclavicular line. LUNGS: Clear to auscultation bilaterally. ABDOMEN: Soft, nontender, nondistended. No hepatosplenomegaly. Positive bowel sounds. EXTREMITIES: No evidence of edema, clubbing, or cyanosis. Reece Remy MD Jul 02, 2018 23:21
[2018-07-03] VITALS: BP 113/65
[2018-07-03 04:20] VITALS: BP 119/86
[2018-07-03] MEDS: HydrALAZINE 50mg tab ORAL SCH ×3 (05:49→22:30)
[2018-07-03] MEDS: Sucralfate 1gm tab ORAL SCH ×3 (06:00→16:43)
--- NOTE | 2018-07-03 07:00 | NUR ---
HAND-OFF: Report given to Melba CHANDLER. Endorsed plan of care.
[2018-07-03 07:35] LABS: BASOPHILS % (AUTO) 0.7 % (0.0-2.0); EOSINOPHILS % (AUTO) 1.6 % (0.0-3.0); HEMATOCRIT 37.8 % (42.0-52.0); HEMOGLOBIN 12.9 G/DL (14.2-18.0); LYMPHOCYTES % (AUTO) 15.1 % (20.0-45.0); MEAN CORPUSCULAR VOLUME 89 FL (80-99); MONOCYTES % (AUTO) 11.3 % (1.0-10.0); NEUTROPHILS % (AUTO) 71.3 % (45.0-75.0); PLATELET COUNT 239 K/UL (150-450); RED BLOOD COUNT 4.26 M/UL (4.70-6.10); RED CELL DISTRIBUTION WIDTH 13.9 % (11.6-14.8); WHITE BLOOD COUNT 7.3 K/UL (4.8-10.8)
--- NOTE | 2018-07-03 07:49 | NUR ---
NURSE NOTES: Received report from RAMESH Talley. Pt is alert and oriented X4. He is sitting up and having breakfast. No distress noted. Bed is in lowest position, side rails up X2, and call light is within reach. Will continue to monitor.
[2018-07-03 08:00] VITALS: BP 126/73
[2018-07-03 08:11] LABS: ALANINE AMINOTRANSFERASE 18 U/L (12-78); ALBUMIN 3.1 G/DL (3.4-5.0); ALBUMIN/GLOBULIN RATIO 0.8 (1.0-2.7); ALKALINE PHOSPHATASE 73 U/L (46-116); ANION GAP 10 mmol/L (5-15); ASPARTATE AMINO TRANSFERASE 19 U/L (15-37); BILIRUBIN,TOTAL 0.5 MG/DL (0.2-1.0); BLOOD UREA NITROGEN 7 mg/dL (7-18); CALCIUM 8.7 MG/DL (8.5-10.1); CARBON DIOXIDE 25 MMOL/L (21-32); CHLORIDE 95 MMOL/L (98-107); CREATINE KINASE 55 U/L (26-308); CREATININE 1.2 MG/DL (0.55-1.30); GAMMA GLUTAMYL TRANSPEPTIDASE 183 U/L (5-85); PHOSPHORUS 3.3 MG/DL (2.5-4.9); POTASSIUM 3.8 MMOL/L (3.5-5.1); SODIUM 129 MMOL/L (136-145)
--- NOTE | 2018-07-03 08:31 | NUR ---
CHEST X-RAY COMPLETED AT 0747 HRS BY Umer RUTLEDGE.
[2018-07-03] MEDS: Atorvastatin 80mg tab ORAL SCH (08:48)
[2018-07-03] MEDS: Carvedilol 25mg Tab ORAL SCH ×2 (08:49→20:43)
[2018-07-03] MEDS: Guaifenesin/DM 10ml syrup ORAL PRN ×2 (08:50→20:46)
[2018-07-03] MEDS: Losartan 50mg tab ORAL SCH (08:50)
--- NOTE | 2018-07-03 09:06 | Diagnostic Imaging Report ---
Indication: Cough Technique: One view of the chest Comparison: 07/01/2018 Findings: Lungs and pleural spaces are clear. The heart size is upper limits normal. The aorta is tortuous and calcified. No significant interim change Impression: No acute process
[2018-07-03] MEDS ORDERED: NaCl 3% 500ml 500 ML IV ONE ×2 (10:00→14:39)
--- NOTE | 2018-07-03 10:12 | Nephrology Progress Note ---
Assessment/Plan Problem List: (1) Uncontrolled hypertension (2) Hyponatremia Assessment Hypertensive Urgency Low Na likely depletional CHF Chronic pain Plan 3% saline repeat today Adjust BP meds per orders CXR 2D Echo monitor Na Subjective ROS Limited/Unobtainable: No Constitutional: Reports: malaise, other - overall feels better Objective Objective Last 24 Hour Vital Signs Date Time Temp Pulse Resp B/P (MAP) Pulse Ox O2 Delivery O2 Flow Rate FiO2 07/03/18 08:50 126/73 07/03/18 08:50 74 126/73 07/03/18 08:49 74 126/73 07/03/18 05:49 119/86 07/03/18 04:20 96.9 89 18 119/86 (97) 97 07/03/18 04:20 67 07/03/18 00:00 96.9 70 18 113/65 (81) 95 07/03/18 00:00 71 07/02/18 22:20 139/78 07/02/18 21:07 68 137/75 07/02/18 21:00 Room Air 07/02/18 20:00 97.3 68 19 127/77 (94) 97 07/02/18 20:00 68 07/02/18 16:00 66 07/02/18 16:00 98.2 63 18 128/76 (93) 95 63 07/02/18 13:19 124/68 07/02/18 12:00 97.9 66 17 124/68 (86) 96 66 07/02/18 12:00 62 Intake and Output 07/02/18 07/03/18 18:59 06:59 # Voids 2 Laboratory Tests 07/02/18 21:00: Carcinoembryonic Antigen [Pending], CA 15-3 Antigen [Pending], CA 19-9 Antigen [ Pending] 07/03/18 06:42: White Blood Count 7.3, Red Blood Count 4.26L, Hemoglobin 12.9L, Hematocrit 37.8L , Mean Corpuscular Volume 89, Mean Corpuscular Hemoglobin 30.2, Mean Corpuscular Hemoglobin Concent 34.0, Red Cell Distribution Width 13.9, Platelet Count 239, Mean Platelet Volume 6.7, Neutrophils (%) (Auto) 71.3, Lymphocytes (% ) (Auto) 15.1L, Monocytes (%) (Auto) 11.3H, Eosinophils (%) (Auto) 1.6, Basophils (%) (Auto) 0.7, Sodium Level 129L, Potassium Level 3.8, Chloride Level 95L, Carbon Dioxide Level 25, Anion Gap 10, Blood Urea Nitrogen 7, Creatinine 1.2, Estimat Glomerular Filtration Rate > 60, Glucose Level 116H, Uric Acid 5.3, Calcium Level 8.7, Phosphorus Level 3.3, Magnesium Level 2.2, Total Bilirubin 0.5, Gamma Glutamyl Transpeptidase 183H, Aspartate Amino Transf (AST/SGOT) 19, Alanine Aminotransferase (ALT/SGPT) 18, Alkaline Phosphatase 73, Total Creatine Kinase 55, C-Reactive Protein, Quantitative 0.5, Pro-B-Type Natriuretic Peptide 221H, Total Protein 7.0, Albumin 3.1L, Globulin 3.9, Albumin /Globulin Ratio 0.8L Height (Feet): 6 Height (Inches): 2.00 Weight (Pounds): 89 General Appearance: no apparent distress Cardiovascular: normal rate Respiratory/Chest: lungs clear Abdomen: soft Edy Sapp MD Jul 03, 2018 10:12
--- NOTE | 2018-07-03 10:51 | NUR ---
CASE MANAGEMENT:REVIEW 07/03/18 SI: UNCONTROLLED HTN. HYPONATREMIA 98.5 74 18 126/73 95% ON RA NA-129 IS: IV NACL 3% 500CC @ 30/HR COREG PO Q12 NEURONTIN PO QHS PROTONIX PO BID HYDRALAZINE PO Q8HRS COZAAR PO QD CARAFATE PO QD PROCARDIA XL PO QD : TELEMETRY STATUS DCP: FROM THE "[facility]"
[2018-07-03 12:00] VITALS: BP 121/75
--- NOTE | 2018-07-03 14:30 | NUR ---
TRANSFER TO FLOOR: Patient transferred to 3E, per MD orders. Report given to RAMESH Baltazar. Belongings remained by patient. Pt stable at time of transfer.
--- NOTE | 2018-07-03 14:35 | NUR ---
NURSE NOTES: Report received from Melba CHANDLER from 2E. Patient transferred from 204-1 to 302-1 via bed. Patient alert, oriented x4 calm. All belongings reviewed with patient and RN. RFA IV infusing Hypertonic Solution as ordered, site asymptomatic. VSS, afebrile. No SOB on RA, pain or NV. Patient oriented to room, call light in reach, bed in lowest position, will continue to monitor.
[2018-07-03] MEDS ORDERED: Acetaminophen 500mg (ES) tab ORAL PRN (14:40)
--- NOTE | 2018-07-03 15:51 | Cardiology Report ---
APPROVED REPORT EXAM: Two-dimensional and M-mode echocardiogram with Doppler and color Doppler. INDICATION Congestive Heart Failure M-Mode DIMENSIONS IVSd1.4 (0.7-1.1cm)Left Atrium (MM)2.8 (1.6-4.0cm) LVDd5.2 (3.5-5.6cm)Aortic Root2.7 (2.0-3.7cm) PWd1.1 (0.7-1.1cm)Aortic Cusp Exc.1.8 (1.5-2.0cm) LVDs3.1 (2.5-4.0cm) PWs1.3 cm Technically difficult study due to poor acoustical windows. Normal left ventricular chamber size, systolic function and wall motion to extent visualized. Left ventricular ejection fraction estimated to be 60-65 %. Moderate left ventricular hypertrophy. No evidence of pericardial effusion. All other cardiac chamber sizes are within normal limits. Focal aortic valve sclerosis with adequate cusp excursion. Thickened mitral valve leaflets with normal excursion. Mitral annulus and aortic root calcification. Pulmonic valve not well visualized. Normal tricuspid valve structure. IVC dilated at 1.8 cm with slight physiologic collapse. A color flow and spectral Doppler study was performed and revealed: Mild aortic regurgitation. Trace mitral regurgitation. Mitral diastolic velocities suggest reduced left ventricular relaxation c/w mild LV diastolic dysfunction (Grade I). Trace tricuspid regurgitation. Tricuspid systolic velocities suggests peak right ventricular systolic pressure of 11 mmHg.
[2018-07-03 16:00] VITALS: BP 102/66
--- NOTE | 2018-07-03 16:18 | General Progress Note ---
Assessment/Plan Assessment/Plan Assessment and Recs: # Failure to thrive - decreased bmi and low protein --> have ordered for cea level --> will also obtain q3d caloric counts --> have ordered for cea, other tumor markers as well --> may consider mirtazapine as appetite stimulant # Iron deficiency anemia, hgb stable 10-12 range --> okay to continue po ferrous sulfate # Uncontrolled hypertension --> currently improved --> cards eval prn basis, antihtn started # Hyponatremia - on ivf, 3% nacl as per renal --> appreciate renal recs # Hyperlipidemia, leg edema, GERD The timing of this note does not necessarily reflect the time of the patient was seen. Greatly appreciate consultation! Subjective HEENT: Denies: no symptoms, eye pain, blurred vision, tearing, double vision, ear pain, ear discharge, nose pain, nose congestion, throat pain, throat swelling, mouth pain, mouth swelling, other Cardiovascular: Denies: no symptoms, chest pain, edema, irregular heart rate, lightheadedness, palpitations, syncope, other Genitourinary: Denies: no symptoms, burning, discharge, frequency, flank pain, hematuria, incontinence, pain, urgency, other Neurologic/Psychiatric: Denies: no symptoms, anxiety, depressed, emotional problems, headache, numbness, paresthesia, pre-existing deficit, seizure, tingling, tremors, weakness, other Endocrine: Denies: no symptoms, excessive sweating, flushing, intolerance to cold, intolerance to heat, increased hunger, increased thirst, increased urine, unexplained weight gain, unexplained weight loss, other Hematologic/Lymphatic: Denies: no symptoms, anemia, easy bleeding, easy bruising, other Allergies: Coded Allergies: No Known Allergies (Unverified , 07/01/18) Subjective 07/03: no events to report, no fevers, bp much better Objective Last 24 Hour Vital Signs Date Time Temp Pulse Resp B/P (MAP) Pulse Ox O2 Delivery O2 Flow Rate FiO2 07/03/18 13:07 127/75 07/03/18 12:00 66 07/03/18 12:00 98.1 65 20 121/75 (90) 96 07/03/18 09:00 Room Air 07/03/18 08:50 126/73 07/03/18 08:50 74 126/73 07/03/18 08:49 74 126/73 07/03/18 08:00 98.5 74 18 126/73 (90) 95 07/03/18 08:00 76 07/03/18 05:49 119/86 07/03/18 04:20 96.9 89 18 119/86 (97) 97 07/03/18 04:20 67 07/03/18 00:00 96.9 70 18 113/65 (81) 95 07/03/18 00:00 71 07/02/18 22:20 139/78 07/02/18 21:07 68 137/75 07/02/18 21:00 Room Air 07/02/18 20:00 97.3 68 19 127/77 (94) 97 07/02/18 20:00 68 Intake and Output 07/02/18 07/03/18 19:00 07:00 # Voids 2 Laboratory Tests 07/02/18 21:00: Carcinoembryonic Antigen [Pending], CA 15-3 Antigen [Pending], CA 19-9 Antigen [ Pending] 07/03/18 06:42: White Blood Count 7.3, Red Blood Count 4.26L, Hemoglobin 12.9L, Hematocrit 37.8L , Mean Corpuscular Volume 89, Mean Corpuscular Hemoglobin 30.2, Mean Corpuscular Hemoglobin Concent 34.0, Red Cell Distribution Width 13.9, Platelet Count 239, Mean Platelet Volume 6.7, Neutrophils (%) (Auto) 71.3, Lymphocytes (% ) (Auto) 15.1L, Monocytes (%) (Auto) 11.3H, Eosinophils (%) (Auto) 1.6, Basophils (%) (Auto) 0.7, Sodium Level 129L, Potassium Level 3.8, Chloride Level 95L, Carbon Dioxide Level 25, Anion Gap 10, Blood Urea Nitrogen 7, Creatinine 1.2, Estimat Glomerular Filtration Rate > 60, Glucose Level 116H, Uric Acid 5.3, Calcium Level 8.7, Phosphorus Level 3.3, Magnesium Level 2.2, Total Bilirubin 0.5, Gamma Glutamyl Transpeptidase 183H, Aspartate Amino Transf (AST/SGOT) 19, Alanine Aminotransferase (ALT/SGPT) 18, Alkaline Phosphatase 73, Total Creatine Kinase 55, C-Reactive Protein, Quantitative 0.5, Pro-B-Type Natriuretic Peptide 221H, Total Protein 7.0, Albumin 3.1L, Globulin 3.9, Albumin /Globulin Ratio 0.8L Height (Feet): 6 Height (Inches): 2.00 Weight (Pounds): 89 Objective PE: Vitals: reviewed, weak cachectic, fatigued General Appearance: NAD HEENT: normocephalic, atraumatic Neck: non-tender, normal alignment Respiratory/Chest: nromal breath sounds bilaterally Cardiovascular/Chest: normal peripheral pulses, normal rate Abdomen: normal bowel sounds, soft, nontender Extremities: normal range of motion Pj Irene MD Jul 03, 2018 16:18
--- NOTE | 2018-07-03 17:30 | Cardiology Progress Note ---
Assessment/Plan Assessment/Plan 1. Accelerated hypertension, well controlled BP, continue nifedipine ER 90, hydralazine and minoxidil. 2. History of congestive heart failure, not clinically in heart failure, 2D echocardiography reveals normal LV systolic function with mild LV diastolic function and normal intracardiac filling pressure. 3. Hyponatremia, improving, could be secondary to diuretics. Subjective Subjective Sinus rhythm at rate of 66. Objective Last 24 Hour Vital Signs Date Time Temp Pulse Resp B/P (MAP) Pulse Ox O2 Delivery O2 Flow Rate FiO2 07/03/18 13:07 127/75 07/03/18 12:00 66 07/03/18 12:00 98.1 65 20 121/75 (90) 96 07/03/18 09:00 Room Air 07/03/18 08:50 126/73 07/03/18 08:50 74 126/73 07/03/18 08:49 74 126/73 07/03/18 08:00 98.5 74 18 126/73 (90) 95 07/03/18 08:00 76 07/03/18 05:49 119/86 07/03/18 04:20 96.9 89 18 119/86 (97) 97 07/03/18 04:20 67 07/03/18 00:00 96.9 70 18 113/65 (81) 95 07/03/18 00:00 71 07/02/18 22:20 139/78 07/02/18 21:07 68 137/75 07/02/18 21:00 Room Air 07/02/18 20:00 97.3 68 19 127/77 (94) 97 07/02/18 20:00 68 Intake and Output 07/02/18 07/03/18 19:00 07:00 # Voids 2 2D Echo: EF 60%, Mod LVH, Mod AR, Grade I LVDD, RVSP 11 mmHg Laboratory Tests Test 07/02/18 21:00 07/03/18 06:42 Carcinoembryonic Antigen Pending CA 15-3 Antigen Pending CA 19-9 Antigen Pending White Blood Count 7.3 K/UL (4.8-10.8) Red Blood Count 4.26 M/UL (4.70-6.10) L Hemoglobin 12.9 G/DL (14.2-18.0) L Hematocrit 37.8 % (42.0-52.0) L Mean Corpuscular Volume 89 FL (80-99) Mean Corpuscular Hemoglobin 30.2 PG (27.0-31.0) Mean Corpuscular Hemoglobin Concent 34.0 G/DL (32.0-36.0) Red Cell Distribution Width 13.9 % (11.6-14.8) Platelet Count 239 K/UL (150-450) Mean Platelet Volume 6.7 FL (6.5-10.1) Neutrophils (%) (Auto) 71.3 % (45.0-75.0) Lymphocytes (%) (Auto) 15.1 % (20.0-45.0) L Monocytes (%) (Auto) 11.3 % (1.0-10.0) H Eosinophils (%) (Auto) 1.6 % (0.0-3.0) Basophils (%) (Auto) 0.7 % (0.0-2.0) Sodium Level 129 MMOL/L (136-145) L Potassium Level 3.8 MMOL/L (3.5-5.1) Chloride Level 95 MMOL/L (98-107) L Carbon Dioxide Level 25 MMOL/L (21-32) Anion Gap 10 mmol/L (5-15) Blood Urea Nitrogen 7 mg/dL (7-18) Creatinine 1.2 MG/DL (0.55-1.30) Estimat Glomerular Filtration Rate > 60 mL/min (>60) Glucose Level 116 MG/DL (74-106) H Uric Acid 5.3 MG/DL (2.6-7.2) Calcium Level 8.7 MG/DL (8.5-10.1) Phosphorus Level 3.3 MG/DL (2.5-4.9) Magnesium Level 2.2 MG/DL (1.8-2.4) Total Bilirubin 0.5 MG/DL (0.2-1.0) Gamma Glutamyl Transpeptidase 183 U/L (5-85) H Aspartate Amino Transf (AST/SGOT) 19 U/L (15-37) Alanine Aminotransferase (ALT/SGPT) 18 U/L (12-78) Alkaline Phosphatase 73 U/L (46-116) Total Creatine Kinase 55 U/L (26-308) C-Reactive Protein, Quantitative 0.5 mg/dL (0.00-0.90) Pro-B-Type Natriuretic Peptide 221 pg/mL (0-125) H Total Protein 7.0 G/DL (6.4-8.2) Albumin 3.1 G/DL (3.4-5.0) L Globulin 3.9 g/dL Albumin/Globulin Ratio 0.8 (1.0-2.7) L Objective HEENT: Atraumatic, normocephalic. Anicteric. Pupils are equal, round, and reactive to light and accommodation. Extraocular muscles intact. NECK: JVP less than 5 cm. No carotid bruit. Carotid upstroke is 2+ bilaterally. CARDIOVASCULAR: Normal S1, S2. Regular rate and rhythm. No murmurs, gallops, or rubs. PMI is at fourth intercostal space in the midclavicular line. LUNGS: Clear to auscultation bilaterally. ABDOMEN: Soft, nontender, nondistended. No hepatosplenomegaly. Positive bowel sounds. EXTREMITIES: No evidence of edema, clubbing, or cyanosis. Reece Remy MD Jul 03, 2018 17:30
--- NOTE | 2018-07-03 19:35 | NUR ---
HAND-OFF: Report given to Mika CHANDLER.
--- NOTE | 2018-07-03 19:36 | NUR ---
NURSE NOTES: Report taken from RAMESH Luna. Patient awake and in bed, A&Ox4. No signs of distress on room air. Has a continuous productive cough, clear lung sounds. Is having some complaints of abdominal pain 6/10, no radiating symptoms. IV site is c/d/i and patent, DC fluids once completed. No skin issues present. Bed in lowest position, call light within reach.
[2018-07-03 20:00] VITALS: BP 133/77
[2018-07-03] MEDS: HYDROcodone/Acetamin 5/325 tab ORAL PRN (20:55)
--- NOTE | 2018-07-03 21:55 | General Progress Note ---
Assessment/Plan Problem List: (1) Uncontrolled hypertension ICD Codes: I10 - Essential (primary) hypertension SNOMED: 54317905, 59530478 Status: progressing Assessment/Plan htn bp is improving reviewed chart and labs Subjective ROS Limited/Unobtainable: Yes Allergies: Coded Allergies: No Known Allergies (Unverified , 07/01/18) Objective Last 24 Hour Vital Signs Date Time Temp Pulse Resp B/P (MAP) Pulse Ox O2 Delivery O2 Flow Rate FiO2 07/03/18 20:43 72 133/77 07/03/18 16:00 97.6 61 18 102/66 (78) 97 07/03/18 13:07 127/75 07/03/18 12:00 66 07/03/18 12:00 98.1 65 20 121/75 (90) 96 07/03/18 09:00 Room Air 07/03/18 08:50 126/73 07/03/18 08:50 74 126/73 07/03/18 08:49 74 126/73 07/03/18 08:00 98.5 74 18 126/73 (90) 95 07/03/18 08:00 76 07/03/18 05:49 119/86 07/03/18 04:20 96.9 89 18 119/86 (97) 97 07/03/18 04:20 67 07/03/18 00:00 96.9 70 18 113/65 (81) 95 07/03/18 00:00 71 07/02/18 22:20 139/78 Intake and Output 07/02/18 07/03/18 19:00 07:00 # Voids 2 Laboratory Tests 07/03/18 06:42: White Blood Count 7.3, Red Blood Count 4.26L, Hemoglobin 12.9L, Hematocrit 37.8L , Mean Corpuscular Volume 89, Mean Corpuscular Hemoglobin 30.2, Mean Corpuscular Hemoglobin Concent 34.0, Red Cell Distribution Width 13.9, Platelet Count 239, Mean Platelet Volume 6.7, Neutrophils (%) (Auto) 71.3, Lymphocytes (% ) (Auto) 15.1L, Monocytes (%) (Auto) 11.3H, Eosinophils (%) (Auto) 1.6, Basophils (%) (Auto) 0.7, Sodium Level 129L, Potassium Level 3.8, Chloride Level 95L, Carbon Dioxide Level 25, Anion Gap 10, Blood Urea Nitrogen 7, Creatinine 1.2, Estimat Glomerular Filtration Rate > 60, Glucose Level 116H, Uric Acid 5.3, Calcium Level 8.7, Phosphorus Level 3.3, Magnesium Level 2.2, Total Bilirubin 0.5, Gamma Glutamyl Transpeptidase 183H, Aspartate Amino Transf (AST/SGOT) 19, Alanine Aminotransferase (ALT/SGPT) 18, Alkaline Phosphatase 73, Total Creatine Kinase 55, C-Reactive Protein, Quantitative 0.5, Pro-B-Type Natriuretic Peptide 221H, Total Protein 7.0, Albumin 3.1L, Globulin 3.9, Albumin /Globulin Ratio 0.8L Height (Feet): 6 Height (Inches): 2.00 Weight (Pounds): 89 Cardiovascular: normal rate Respiratory/Chest: lungs clear Abdomen: soft Isabel Bassett MD Jul 03, 2018 21:55
--- NOTE | 2018-07-03 23:42 | NUR ---
NURSE NOTES: Took BP at 2215 patient 126/79. Held hydralazine due to lower parameter. Reassessed BP for possible hydralazine admin, BP was 116/72, held PM hydralazine
[2018-07-04] VITALS: BP 116/72
--- NOTE | 2018-07-04 01:31 | NUR ---
NURSE NOTES: Patient is complaing of feeling "full" with 6/10 pain and nausea. Abdomen is distended and firm. Bowel sounds are distant and hypoactive. Contacted MD, awaiting return call.
[2018-07-04] MEDS: Guaifenesin/DM 10ml syrup ORAL PRN (02:02)
[2018-07-04] MEDS: HYDROcodone/Acetamin 5/325 tab ORAL PRN (03:48)
[2018-07-04 03:49] VITALS: BP 143/87
[2018-07-04] MEDS: Sucralfate 1gm tab ORAL SCH ×3 (05:42→17:18)
[2018-07-04] MEDS: HydrALAZINE 50mg tab ORAL SCH ×4 (05:43→22:00)
[2018-07-04 06:41] LABS: ALANINE AMINOTRANSFERASE 24 U/L (12-78); ALBUMIN 3.6 G/DL (3.4-5.0); ALBUMIN/GLOBULIN RATIO 0.8 (1.0-2.7); ALKALINE PHOSPHATASE 82 U/L (46-116); ANION GAP 10 mmol/L (5-15); ASPARTATE AMINO TRANSFERASE 19 U/L (15-37); BILIRUBIN,TOTAL 0.6 MG/DL (0.2-1.0); BLOOD UREA NITROGEN 13 mg/dL (7-18); CALCIUM 9.3 MG/DL (8.5-10.1); CARBON DIOXIDE 23 MMOL/L (21-32); CHLORIDE 94 MMOL/L (98-107); CREATININE 1.5 MG/DL (0.55-1.30); PHOSPHORUS 3.2 MG/DL (2.5-4.9); POTASSIUM 4.2 MMOL/L (3.5-5.1); SODIUM 127 MMOL/L (136-145)
[2018-07-04 06:44] LABS: BASOPHILS % (AUTO) 0.9 % (0.0-2.0); EOSINOPHILS % (AUTO) 0.7 % (0.0-3.0); HEMATOCRIT 39.7 % (42.0-52.0); HEMOGLOBIN 13.2 G/DL (14.2-18.0); LYMPHOCYTES % (AUTO) 8.6 % (20.0-45.0); MEAN CORPUSCULAR VOLUME 90 FL (80-99); MONOCYTES % (AUTO) 13.5 % (1.0-10.0); NEUTROPHILS % (AUTO) 76.3 % (45.0-75.0); PLATELET COUNT 241 K/UL (150-450); RED CELL DISTRIBUTION WIDTH 13.7 % (11.6-14.8); WHITE BLOOD COUNT 5.4 K/UL (4.8-10.8)
--- NOTE | 2018-07-04 07:38 | NUR ---
HAND-OFF: Report given to RAMESH Luna. Patient fatigued in bed, VS stable. MD ordered stat KUB. Patient is currently NPO.
--- NOTE | 2018-07-04 07:40 | NUR ---
NURSE NOTES: Report received from outgoing nurse, rounds made. Patient alert, oriented x4, calm. Abdomen distended, firm. Reinforced NPO status. RFA heplock intact. Patient informed KUB/ABD xray to be done. Denies NV/SOB on RA/pain. Call light in reach, bed in lowest position, will continue to monitor.
[2018-07-04 08:00] VITALS: BP 138/83
[2018-07-04] MEDS ORDERED: Losartan 50mg tab ORAL SCH (09:00)
[2018-07-04] MEDS: Carvedilol 25mg Tab ORAL SCH ×2 (10:12→20:38)
[2018-07-04] MEDS: Atorvastatin 20mg tab ORAL SCH (10:13)
--- NOTE | 2018-07-04 11:27 | Consultation ---
History of Present Illness General Date patient seen: Jul 04, 2018 Reason for Hospitalization: Hypertension Present Illness HPI 62-year-old male admitted for hypertension and abnormal labs currently under medical care and management. During admission identified to have abdominal distention with discomfort. States he has nausea but no emesis. States abdomen is been significantly distended since 3 days prior to admission. States he is passing flatus and having diarrhea. No prior similar episodes. No recent travel. Surgery called to evaluate and assist with care. Patient seen, patient evaluated, chart reviewed. Allergies: Coded Allergies: No Known Allergies (Unverified , 07/01/18) Medication History Scheduled Atorvastatin Calcium* (Lipitor*), 40 MG ORAL DAILY, (Reported) Carvedilol* (Carvedilol*), 25 MG ORAL EVERY 12 HOURS, (Reported) Ferrous Sulfate* (Ferrous Sulfate*), 325 MG ORAL TWICE A DAY, (Reported) Folic Acid* (Folic Acid*), 1 MG ORAL DAILY, (Reported) Hydralazine Hcl* (Hydralazine Hcl*), 100 MG ORAL EVERY 8 HOURS, (Reported) Losartan Potassium* (Losartan Potassium*), 50 MG ORAL DAILY, (Reported) Pantoprazole* (Pantoprazole*), 40 MG ORAL DAILY, (Reported) Potassium Chloride (Potassium Chloride), 10 MEQ ORAL DAILY, (Reported) Sucralfate* (Carafate*), 1 GM ORAL THREE TIMES A DAY, (Reported) Discontinued Medications Ferrous Sulfate* (Ferrous Sulfate*), 325 MG ORAL DAILY, (Reported) Discontinued Reason: Medication dose changed Furosemide* (Lasix*), 20 MG ORAL DAILY, (Reported) Discontinued Reason: MD discontinued med Patient History History Provided By: Patient, Medical Record, PMD Healthcare decision maker Resuscitation status Full Code Advanced Directive on File No Past Medical/Surgical History Past Medical/Surgical History: (1) Abdominal pain (2) Abdominal distension (3) Uncontrolled hypertension (4) Hyponatremia Review of Systems Review of Symptoms General ROS: no weight loss or fever Psychological ROS: no depression or mood changes, no memory loss Ophthalmic ROS: no visual changes or eye irritation ENT ROS: no nasal congestion, hearing loss, dizziness Allergy and Immunology ROS: no allergic symptoms or urticaria Hematological and Lymphatic ROS: no swollen glands, unusual bleeding or bruising Endocrine ROS: no polyuria, polydipsia, weight changes, temperature intolerance Respiratory ROS: no cough, shortness of breath, or wheezing Cardiovascular ROS: no chest pain or dyspnea on exertion Gastrointestinal ROS: abdominal pain, no bright red blood in stool. Musculoskeletal ROS: no myalgias or arthralgias Neurological ROS: no TIA or stroke symptoms Dermatological ROS: no new or changing skin lesions, rashes or pruritis Physical Exam Physical Exam General appearance: alert, cooperative, no distress, appears stated age Head: Normocephalic, without obvious abnormality, atraumatic Eyes: conjunctivae/corneas clear. PERRL, EOM's intact. Fundi benign Throat: Lips, mucosa, and tongue normal. Teeth and gums normal Neck: supple, symmetrical, trachea midline, no adenopathy, thyroid: not enlarged, symmetric, no tenderness/mass/nodules, no carotid bruit and no JVD Lungs: clear to auscultation bilaterally Heart: regular rate and rhythm, S1, S2 normal, no murmur, click, rub or gallop Abdomen: soft, minimal tender. Bowel sounds decreased, distended, tympanic. No masses, no organomegaly Extremities: extremities normal, atraumatic, no cyanosis or edema Pulses: 2+ and symmetric Skin: Skin color, texture, turgor normal. No rashes or lesions Neurologic: Grossly normal Last 24 Hour Vital Signs Date Time Temp Pulse Resp B/P (MAP) Pulse Ox O2 Delivery O2 Flow Rate FiO2 07/04/18 10:12 87 138/83 07/04/18 10:12 87 138/83 07/04/18 08:00 97.8 87 19 138/83 (101) 98 07/04/18 05:50 125/75 07/04/18 03:49 97.7 79 18 143/87 (105) 94 07/04/18 00:00 97.7 69 17 116/72 (87) 95 07/03/18 22:30 116/72 07/03/18 21:00 Room Air 07/03/18 20:43 72 133/77 07/03/18 20:00 97.9 72 18 133/77 (95) 97 07/03/18 16:00 97.6 61 18 102/66 (78) 97 07/03/18 13:07 127/75 07/03/18 12:00 66 07/03/18 12:00 98.1 65 20 121/75 (90) 96 Intake and Output 07/03/18 07/04/18 18:59 06:59 Intake Total 390 ml 510 ml Output Total 500 ml Balance -110 ml 510 ml Intake Oral 240 ml 480 ml IV Total 150 ml 30 ml Output Urine Total 500 ml # Voids 3 # Bowel Movements 3 Laboratory Tests Test 07/04/18 05:10 White Blood Count 5.4 K/UL (4.8-10.8) Red Blood Count 4.40 M/UL (4.70-6.10) L Hemoglobin 13.2 G/DL (14.2-18.0) L Hematocrit 39.7 % (42.0-52.0) L Mean Corpuscular Volume 90 FL (80-99) Mean Corpuscular Hemoglobin 30.0 PG (27.0-31.0) Mean Corpuscular Hemoglobin Concent 33.2 G/DL (32.0-36.0) Red Cell Distribution Width 13.7 % (11.6-14.8) Platelet Count 241 K/UL (150-450) Mean Platelet Volume 6.6 FL (6.5-10.1) Neutrophils (%) (Auto) 76.3 % (45.0-75.0) H Lymphocytes (%) (Auto) 8.6 % (20.0-45.0) L Monocytes (%) (Auto) 13.5 % (1.0-10.0) H Eosinophils (%) (Auto) 0.7 % (0.0-3.0) Basophils (%) (Auto) 0.9 % (0.0-2.0) Sodium Level 127 MMOL/L (136-145) L Potassium Level 4.2 MMOL/L (3.5-5.1) Chloride Level 94 MMOL/L (98-107) L Carbon Dioxide Level 23 MMOL/L (21-32) Anion Gap 10 mmol/L (5-15) Blood Urea Nitrogen 13 mg/dL (7-18) Creatinine 1.5 MG/DL (0.55-1.30) H Estimat Glomerular Filtration Rate 57.4 mL/min (>60) Glucose Level 129 MG/DL (74-106) H Osmolality 268 mOsm/kg (297-317) L Uric Acid 5.9 MG/DL (2.6-7.2) Calcium Level 9.3 MG/DL (8.5-10.1) Phosphorus Level 3.2 MG/DL (2.5-4.9) Magnesium Level 2.1 MG/DL (1.8-2.4) Total Bilirubin 0.6 MG/DL (0.2-1.0) Aspartate Amino Transf (AST/SGOT) 19 U/L (15-37) Alanine Aminotransferase (ALT/SGPT) 24 U/L (12-78) Alkaline Phosphatase 82 U/L (46-116) C-Reactive Protein, Quantitative 2.9 mg/dL (0.00-0.90) H Pro-B-Type Natriuretic Peptide 141 pg/mL (0-125) H Total Protein 8.1 G/DL (6.4-8.2) Albumin 3.6 G/DL (3.4-5.0) Globulin 4.5 g/dL Albumin/Globulin Ratio 0.8 (1.0-2.7) L Height (Feet): 6 Height (Inches): 2.00 Weight (Pounds): 89 Medications Current Medications Medications (Trade) Dose Ordered Sig/Dayan Route PRN Reason Start Time Stop Time Status Last Admin Dose Admin Acetaminophen (Tylenol) 500 mg Q4H PRN ORAL Mild Pain/Temp > 100.5 07/03/18 14:40 08/02/18 14:39 Acetaminophen/ Hydrocodone Bitart ([place] 5/325) 1 tab Q6H PRN ORAL PAIN 4-10 07/03/18 14:41 07/10/18 14:40 07/04/18 03:48 Atorvastatin Calcium (Lipitor) 40 mg DAILY ORAL 07/04/18 09:00 08/01/18 08:59 07/04/18 10:13 Carvedilol (Coreg) 25 mg EVERY 12 HOURS ORAL 07/03/18 21:00 08/01/18 08:59 07/04/18 10:12 Clonidine HCl (Catapres Tab) 0.1 mg Q4H PRN ORAL SBP>160 07/03/18 14:40 08/02/18 14:39 Gabapentin (Neurontin) 100 mg THREE TIMES A DAY ORAL 07/03/18 18:00 08/01/18 12:59 07/04/18 10:13 Gabapentin (Neurontin) 300 mg BEDTIME ORAL 07/03/18 21:00 08/01/18 20:59 07/03/18 20:43 Guaifenesin/ Dextromethorphan (Robitussin DM Syrup) 5 ml Q4H PRN ORAL For Cough 07/03/18 14:41 08/02/18 14:40 07/04/18 02:02 Hydralazine HCl (Apresoline) 100 mg Q8HR ORAL 07/03/18 22:00 08/01/18 05:59 07/04/18 05:50 Nifedipine (Procardia XL) 90 mg DAILY ORAL 07/04/18 09:00 07/31/18 21:59 07/04/18 10:12 Ondansetron HCl (Zofran) 4 mg Q6H PRN IVP Nausea & Vomiting 07/04/18 06:30 08/03/18 06:29 07/04/18 10:21 Pantoprazole (Protonix) 40 mg BID ORAL 07/03/18 18:00 08/01/18 08:59 07/04/18 10:13 Sucralfate (Carafate) 1 gm BEFORE MEALS ORAL 07/03/18 16:30 08/01/18 06:29 07/04/18 05:42 Assessment/Plan Problem List: (1) Uncontrolled hypertension ICD Codes: I10 - Essential (primary) hypertension SNOMED: 92611233, 03114537 (2) Hyponatremia ICD Codes: E87.1 - Hypo-osmolality and hyponatremia SNOMED: 24477650 (3) Abdominal distension Assessment & Plan: KUB ordered will Order CT A/P to evaluate for possible sbo vs ileus? trend labs will follow with recs thank you ICD Codes: R14.0 - Abdominal distension (gaseous) SNOMED: 80390442 (4) Abdominal pain ICD Codes: R10.9 - Unspecified abdominal pain SNOMED: 67722609 Donnie Weinberg Jul 04, 2018 11:27
[2018-07-04] MEDS ORDERED: Gastrograffin 30ml ORAL PRN (11:30)
[2018-07-04] MEDS ORDERED: Isovue-300 100ml vial INJ PRN (11:30)
[2018-07-04 12:00] VITALS: BP 141/86
--- NOTE | 2018-07-04 12:03 | Diagnostic Imaging Report ---
Indication: Abdominal distention Technique: Supine view of the abdomen Comparison: none Findings: Hernia mesh anchors are seen in the right inguinal region. Small bowel loops are distended, diffusely gas-filled. The colon is also gas-filled, upper limits of normal in caliber. Impression: Distended gas-filled small bowel loops. Appearance is nonspecific, could represent ileus versus small bowel obstruction. Note also gas-filled upper limits of normal caliber colon read Evidence of prior right inguinal region mesh hernia repair Dr. Melendez notified of the findings at the time of interpretation
--- NOTE | 2018-07-04 12:18 | GI Initial Consult Note ---
History of Present Illness General Date patient seen: Jul 04, 2018 Time patient seen: 12:13 Reason for Hospitalization: Hypertension Referring physician: ELMO BOLTON Reason for Consultation: Abdominal distention Present Illness HPI Patient is a 62-year-old male brought in by EMS after increased blood pressure. Patient was noted to have prior history of hypertension. He reports having recently been taken off of his nifedipine extended release. Patient normally takes hydralazine as well Coreg. He reports having some increased generalized weakness. Reports having some prior history of congestive heart failure. He states that he is currently a smoker.Patient denies any fever or vomiting. He reports having prior history of chronic back pain for which he takes gabapentin but is been out of this lately. GI consulted for abdominal distention. The patient was seen, awake alert and oriented x4 no apparent distress, no active signs or symptoms of nausea or vomiting. Patient has abdominal distention, firm, tympanic in all quadrants, nontender. The patient stated he had multiple bowel movements this morning which was diarrhea. The patient has no history of endoscopic or colonoscopy. The patient denies any use of alcohol, tobacco, drugs. KUB was performed and noted that the patient had some dilated loops in the small bowel which could have represented an ileus or small bowel obstruction. Patient is currently pending CT scan. Labs reviewed hemoglobin of 13.2, no transaminitis. Urine toxicity is negative Home Meds Reported Medications Potassium Chloride (POTASSIUM CHLORIDE) 10 Meq Tablet.er, 10 MEQ ORAL DAILY, TAB 0 Refills 07/01/18 Carvedilol* (CARVEDILOL*) 25 Mg Tablet, 25 MG ORAL EVERY 12 HOURS, TAB 07/01/18 Ferrous Sulfate* (FERROUS SULFATE*) 325 Mg Tablet, 325 MG ORAL TWICE A DAY, TAB 0 Refills 07/01/18 Sucralfate* (CARAFATE*) 1 Gm Tablet, 1 GM ORAL THREE TIMES A DAY, TAB 07/01/18 Pantoprazole* (PANTOPRAZOLE*) 40 Mg Tablet.dr, 40 MG ORAL DAILY, TAB 07/01/18 Losartan Potassium* (LOSARTAN POTASSIUM*) 50 Mg Tablet, 50 MG ORAL DAILY, TAB 07/01/18 Atorvastatin Calcium* (LIPITOR*) 40 Mg Tablet, 40 MG ORAL DAILY, TAB 07/01/18 Hydralazine Hcl* (HYDRALAZINE HCL*) 100 Mg Tablet, 100 MG ORAL EVERY 8 HOURS, TAB 07/01/18 Folic Acid* (FOLIC ACID*) 1 Mg Tablet, 1 MG ORAL DAILY, TAB 07/01/18 Discontinued Reported Medications Furosemide* (LASIX*) 20 Mg Tablet, 20 MG ORAL DAILY, TAB 07/01/18 Ferrous Sulfate* (FERROUS SULFATE*) 325 Mg Tablet, 325 MG ORAL DAILY, #30 TAB 0 Refills 07/01/18 Med list reviewed/reconciled: Yes Allergies: Coded Allergies: No Known Allergies (Unverified , 07/01/18) Patient History History Provided By: Patient, Medical Record PMH Narrative Past Medical History: see triage record Reviewed Nursing Documentation: PMH: Agreed; PSxH: Agreed Social History: Denies: smoking, alcohol use, drug use, other Review of Systems All Other Systems: negative except mentioned in HPI Physical Exam Vital Signs Date Time Temp Pulse Resp B/P (MAP) Pulse Ox O2 Delivery O2 Flow Rate FiO2 07/01/18 15:36 69 16 222/117 6 Room Air 07/01/18 15:42 98.2 07/01/18 16:08 21 Sp02 EP Interpretation: reviewed, normal Labs Laboratory Tests Test 07/04/18 05:10 White Blood Count 5.4 K/UL (4.8-10.8) Red Blood Count 4.40 M/UL (4.70-6.10) L Hemoglobin 13.2 G/DL (14.2-18.0) L Hematocrit 39.7 % (42.0-52.0) L Mean Corpuscular Volume 90 FL (80-99) Mean Corpuscular Hemoglobin 30.0 PG (27.0-31.0) Mean Corpuscular Hemoglobin Concent 33.2 G/DL (32.0-36.0) Red Cell Distribution Width 13.7 % (11.6-14.8) Platelet Count 241 K/UL (150-450) Mean Platelet Volume 6.6 FL (6.5-10.1) Neutrophils (%) (Auto) 76.3 % (45.0-75.0) H Lymphocytes (%) (Auto) 8.6 % (20.0-45.0) L Monocytes (%) (Auto) 13.5 % (1.0-10.0) H Eosinophils (%) (Auto) 0.7 % (0.0-3.0) Basophils (%) (Auto) 0.9 % (0.0-2.0) Sodium Level 127 MMOL/L (136-145) L Potassium Level 4.2 MMOL/L (3.5-5.1) Chloride Level 94 MMOL/L (98-107) L Carbon Dioxide Level 23 MMOL/L (21-32) Anion Gap 10 mmol/L (5-15) Blood Urea Nitrogen 13 mg/dL (7-18) Creatinine 1.5 MG/DL (0.55-1.30) H Estimat Glomerular Filtration Rate 57.4 mL/min (>60) Glucose Level 129 MG/DL (74-106) H Osmolality 268 mOsm/kg (297-317) L Uric Acid 5.9 MG/DL (2.6-7.2) Calcium Level 9.3 MG/DL (8.5-10.1) Phosphorus Level 3.2 MG/DL (2.5-4.9) Magnesium Level 2.1 MG/DL (1.8-2.4) Total Bilirubin 0.6 MG/DL (0.2-1.0) Aspartate Amino Transf (AST/SGOT) 19 U/L (15-37) Alanine Aminotransferase (ALT/SGPT) 24 U/L (12-78) Alkaline Phosphatase 82 U/L (46-116) C-Reactive Protein, Quantitative 2.9 mg/dL (0.00-0.90) H Pro-B-Type Natriuretic Peptide 141 pg/mL (0-125) H Total Protein 8.1 G/DL (6.4-8.2) Albumin 3.6 G/DL (3.4-5.0) Globulin 4.5 g/dL Albumin/Globulin Ratio 0.8 (1.0-2.7) L General Appearance: well appearing, no apparent distress, alert Head: normocephalic EENT: PERRL/EOMI, normal ENT inspection Neck: supple Respiratory: normal breath sounds, no respiratory distress Cardiovascular: normal rate Gastrointestinal: normal inspection, non tender, soft, normal bowel sounds, non -distended, distended - See HPI Rectal: deferred Genitourinary: deferred Musculoskeletal: normal inspection, back normal Neurologic: normal inspection, alert, oriented x3, responsive Psychiatric: normal inspection, judgement/insight normal, memory normal Skin: normal inspection, normal color, no rash, warm/dry, palpation normal, well hydrated Lymphatic: normal inspection, no adenopathy Current Medications Current Medications Medications (Trade) Dose Ordered Sig/Dayan Route PRN Reason Start Time Stop Time Status Last Admin Dose Admin Acetaminophen (Tylenol) 500 mg Q4H PRN ORAL Mild Pain/Temp > 100.5 07/03/18 14:40 08/02/18 14:39 Acetaminophen/ Hydrocodone Bitart ([place] 5/325) 1 tab Q6H PRN ORAL PAIN 4-10 07/03/18 14:41 07/10/18 14:40 07/04/18 03:48 Atorvastatin Calcium (Lipitor) 40 mg DAILY ORAL 07/04/18 09:00 08/01/18 08:59 07/04/18 10:13 Carvedilol (Coreg) 25 mg EVERY 12 HOURS ORAL 07/03/18 21:00 08/01/18 08:59 07/04/18 10:12 Clonidine HCl (Catapres Tab) 0.1 mg Q4H PRN ORAL SBP>160 07/03/18 14:40 08/02/18 14:39 Diatrizoate Meglum/ Diatrizoate Sod (Gastrografin) 30 ml NOW PRN ORAL Radiology Procedure 07/04/18 11:30 07/06/18 11:29 Gabapentin (Neurontin) 100 mg THREE TIMES A DAY ORAL 07/03/18 18:00 08/01/18 12:59 07/04/18 10:13 Gabapentin (Neurontin) 300 mg BEDTIME ORAL 07/03/18 21:00 08/01/18 20:59 07/03/18 20:43 Guaifenesin/ Dextromethorphan (Robitussin DM Syrup) 5 ml Q4H PRN ORAL For Cough 07/03/18 14:41 08/02/18 14:40 07/04/18 02:02 Hydralazine HCl (Apresoline) 100 mg Q8HR ORAL 07/03/18 22:00 08/01/18 05:59 07/04/18 05:50 Iopamidol (Isovue-300 100ml) 100 ml NOW PRN INJ Radiology Procedure 07/04/18 11:30 07/06/18 11:29 Nifedipine (Procardia XL) 90 mg DAILY ORAL 07/04/18 09:00 07/31/18 21:59 07/04/18 10:12 Ondansetron HCl (Zofran) 4 mg Q6H PRN IVP Nausea & Vomiting 07/04/18 06:30 08/03/18 06:29 07/04/18 10:21 Pantoprazole (Protonix) 40 mg BID ORAL 07/03/18 18:00 08/01/18 08:59 07/04/18 10:13 Sucralfate (Carafate) 1 gm BEFORE MEALS ORAL 07/03/18 16:30 08/01/18 06:29 07/04/18 11:57 GI: Plan Problems: (1) Small bowel obstruction (2) Ileus (3) Abdominal pain (4) Abdominal distension Plan Maintain n.p.o. plus IV fluids Follow-up abdominal pelvis CT with contrast May need small bowel x-ray series serial imaging studies as needed May need NGT for bowel decompression PPI Zofran as needed Pain management Follow-up with surgical recommendations We will follow patient and provide additional recommendations Discussed with Dr. Royal. Thank you for this patient referral, we will follow. The patient was seen and examined at bedside and all new and available data was reviewed in the patients chart. I agree with the above findings, impression and plan. (Patient seen earlier today. Signature stamp does not reflect patient encounter time.). - MD Nichole Yancey,[facility] Jul 04, 2018 12:18
--- NOTE | 2018-07-04 13:30 | NUR ---
NURSE NOTES: Dr. Weinberg notified of creatinine 1.5. CT of Abdomen only to be done with oral contrast, radiology notified. Patient consumed indicated amount of oral contrast, no NV. Sent down for CT abdomen via bed at 1330.
--- NOTE | 2018-07-04 15:02 | NUR ---
RD ASSESSMENT & RECOMMENDATIONS SEE CARE ACTIVITY FOR COMPLETE ASSESSMENT DAILY ESTIMATED NEEDS: Needs based on Cardiac, 72kg 25-30 kcals/kg 9954-4929 total kcals 1-1.3 g protein/kg 72-94 g total protein 20-22 mL/kg 5751-3197 total fluid mLs NUTRITION DIAGNOSIS: Altered GI function R/T possible SBO vs ileus as evidenced by c/o nausea, abdominal distention, diarrhea, NPO at this time. CURRENT DIET:NPO PO DIET RECOMMENDATIONS: INITIATE DIET PER MD ADDITIONAL RECOMMENDATIONS: * Standing wt as able for accurate CBW * Monitor NPO status -pending CT result at this time - possible SBO vs ileus. * Monitor lytes, replete as needed * Once diet resumes-> pt requests soft easy chew texture (poor dentition)
[2018-07-04 16:00] VITALS: BP 128/66
--- NOTE | 2018-07-04 16:26 | Nephrology Progress Note ---
Assessment/Plan Problem List: (1) Uncontrolled hypertension (2) Hyponatremia Assessment Hypertensive Urgency Low Na likely depletional CHF Chronic pain Plan 3% saline repeat today Adjust BP meds per orders CXR 2D Echo noted monitor Na Subjective ROS Limited/Unobtainable: No Constitutional: Reports: malaise Objective Objective Last 24 Hour Vital Signs Date Time Temp Pulse Resp B/P (MAP) Pulse Ox O2 Delivery O2 Flow Rate FiO2 07/04/18 14:50 141/86 07/04/18 10:12 87 138/83 07/04/18 10:12 87 138/83 07/04/18 08:00 97.8 87 19 138/83 (101) 98 07/04/18 05:50 125/75 07/04/18 03:49 97.7 79 18 143/87 (105) 94 07/04/18 00:00 97.7 69 17 116/72 (87) 95 07/03/18 22:30 116/72 07/03/18 21:00 Room Air 07/03/18 20:43 72 133/77 07/03/18 20:00 97.9 72 18 133/77 (95) 97 Intake and Output 07/03/18 07/04/18 19:00 07:00 Intake Total 390 ml 510 ml Output Total 500 ml Balance -110 ml 510 ml Intake Oral 240 ml 480 ml IV Total 150 ml 30 ml Output Urine Total 500 ml # Voids 3 # Bowel Movements 3 Laboratory Tests 07/04/18 05:10: White Blood Count 5.4, Red Blood Count 4.40L, Hemoglobin 13.2L, Hematocrit 39.7L , Mean Corpuscular Volume 90, Mean Corpuscular Hemoglobin 30.0, Mean Corpuscular Hemoglobin Concent 33.2, Red Cell Distribution Width 13.7, Platelet Count 241, Mean Platelet Volume 6.6, Neutrophils (%) (Auto) 76.3H, Lymphocytes ( %) (Auto) 8.6L, Monocytes (%) (Auto) 13.5H, Eosinophils (%) (Auto) 0.7, Basophils (%) (Auto) 0.9, Sodium Level 127L, Potassium Level 4.2, Chloride Level 94L, Carbon Dioxide Level 23, Anion Gap 10, Blood Urea Nitrogen 13, Creatinine 1.5H, Estimat Glomerular Filtration Rate 57.4, Glucose Level 129H, Osmolality 268L, Uric Acid 5.9, Calcium Level 9.3, Phosphorus Level 3.2, Magnesium Level 2.1, Total Bilirubin 0.6, Aspartate Amino Transf (AST/SGOT) 19, Alanine Aminotransferase (ALT/SGPT) 24, Alkaline Phosphatase 82, C-Reactive Protein, Quantitative 2.9H, Pro-B-Type Natriuretic Peptide 141H, Total Protein 8.1, Albumin 3.6, Globulin 4.5, Albumin/Globulin Ratio 0.8L Height (Feet): 6 Height (Inches): 2.00 Weight (Pounds): 89 General Appearance: no apparent distress Cardiovascular: normal rate Respiratory/Chest: decreased breath sounds Abdomen: distended Objective no change Edy Sapp MD Jul 04, 2018 16:26
--- NOTE | 2018-07-04 17:00 | NUR ---
NURSE NOTES: Obey Varela [employer] notified of patient having multiple soft/liquid diarrheal BMs. IVF order received/Continue NPO status.
--- NOTE | 2018-07-04 17:00 | NUR ---
NURSE NOTES: Stat UA obtained and sent down to laboratory.
[2018-07-04] MEDS ORDERED: D5 1/2NS w/KCl 20mEq 1,000 ML IV SCH (17:30)
--- NOTE | 2018-07-04 17:30 | Diagnostic Imaging Report ---
Indication: Abdominal distention Technique: Spiral acquisitions obtained through the abdomen and pelvis. No oral contrast utilized, per emergency room physician request No IV contrast utilized, per referring physician request.. Multiplanar reconstructions were generated. Total dose length product 593.45 mGycm. CTDIvol(s) 11.63 mGy. Dose reduction achieved using automated exposure control Comparison: None Findings: Large and small bowel anatomy is difficult to trace. Most of the small bowel is massively distended and fluid-filled. There is what appears to be a very short segment of nondilated terminal ileum, distal to which the ascending and transverse colon are mildly distended and fluid-filled. The transverse colon tapers to normal caliber fairly abruptly at the distal transverse colon, and distal to this the colon is collapsed. There is forward transit of contrast only a short distance. No bowel wall pneumatosis. There is a slightly extrinsically compressed appearance to the small bowel in the mesenteric root to the right of midline and very slight swirling of the mesentery in the right lower quadrant. No free or loculated intraperitoneal gas or fluid is evident. The appendix is not definitely visualized. There are mesh hernia anchors in the right inguinal region. The distal esophagus demonstrates a small sliding-type hiatal hernia. The stomach demonstrates equivocal mild wall thickening in the fundus. The duodenum is unremarkable. The liver, gallbladder, bile ducts, pancreas, spleen, adrenals, kidneys are unremarkable. Calcifications in the right renal sinus are probably arterial. No retroperitoneal or mesenteric mass or adenopathy. No pelvic mass or adenopathy. The prostate is mildly prominent. The included lung bases demonstrate posterior dependent atelectatic changes and possibly some peripheral scarring. The heart is upper limits normal in size. The bones demonstrate degenerative spondylosis changes. Impression: Diffusely massively dilated fluid-filled small bowel with nondilated distal ileum. Borderline dilated fluid-filled proximal colon, with nondilated distal colon. Pattern is somewhat unusual. Finding of massively dilated small bowel with the distal transition raises concern for distal small bowel obstruction. There may also be concomitant obstruction of the distal transverse colon. Evidence of tapering and slightly swirled mesentery in the right lower quadrant mesenteric root raises the possibility of an internal hernia. However, transition point of the transverse colon is remote from the small bowel transition point, so other etiologies should be considered. Other possibilities include separate small bowel and colon obstruction secondary to adhesions in 2 different locations. Findings could also be functional in nature. Consider follow-up radiographs to assess for transit of contrast and correlation with clinical findings. Small hiatal hernia Other findings as noted, including degenerative spondylosis changes, prominent prostate, basilar pulmonary parenchymal atelectatic changes Critical value findings discussed by phone with Dr. Weinberg at the time of interpretation The CT scanner at [facility] is accredited by the [employer] and the scans are performed using protocols designed to limit radiation exposure to as low as reasonably achievable to attain images of sufficient resolution adequate for diagnostic evaluation.
--- NOTE | 2018-07-04 19:10 | NUR ---
HAND-OFF: Report given to Benjamin CHANDLER.
--- NOTE | 2018-07-04 19:39 | NUR ---
NURSE NOTES: Received patient awake in bed, able to verbalize needs, no s/s of acute distress. C/o stomach pain. NPO status noted. UV access flushing, dressing dry and intact. Bed on lowest position, fall and seizure precautions taken.
[2018-07-04 20:00] VITALS: BP 114/63
--- NOTE | 2018-07-04 20:49 | General Progress Note ---
Assessment/Plan Problem List: (1) Uncontrolled hypertension ICD Codes: I10 - Essential (primary) hypertension SNOMED: 54385202, [id number] Status: unchanged Assessment/Plan distended abdomen and ordered kub ileus vs sbo consulted dr nieves and dr romano htn bp is improving reviewed chart and labs Subjective Gastrointestinal/Abdominal: Reports: abdomen distended Allergies: Coded Allergies: No Known Allergies (Unverified , 07/01/18) Objective Last 24 Hour Vital Signs Date Time Temp Pulse Resp B/P (MAP) Pulse Ox O2 Delivery O2 Flow Rate FiO2 07/04/18 20:38 90 114/63 07/04/18 20:00 98.3 90 20 114/63 (80) 98 07/04/18 16:00 98.9 94 18 128/66 (86) 98 07/04/18 14:50 141/86 07/04/18 12:00 98.0 88 19 141/86 (104) 98 07/04/18 10:12 87 138/83 07/04/18 10:12 87 138/83 07/04/18 09:00 Room Air 07/04/18 08:00 97.8 87 19 138/83 (101) 98 07/04/18 05:50 125/75 07/04/18 03:49 97.7 79 18 143/87 (105) 94 07/04/18 00:00 97.7 69 17 116/72 (87) 95 07/03/18 22:30 116/72 07/03/18 21:00 Room Air Intake and Output 07/03/18 07/04/18 19:00 07:00 Intake Total 390 ml 510 ml Output Total 500 ml Balance -110 ml 510 ml Intake Oral 240 ml 480 ml IV Total 150 ml 30 ml Output Urine Total 500 ml # Voids 3 # Bowel Movements 3 Laboratory Tests 07/04/18 05:10: White Blood Count 5.4, Red Blood Count 4.40L, Hemoglobin 13.2L, Hematocrit 39.7L , Mean Corpuscular Volume 90, Mean Corpuscular Hemoglobin 30.0, Mean Corpuscular Hemoglobin Concent 33.2, Red Cell Distribution Width 13.7, Platelet Count 241, Mean Platelet Volume 6.6, Neutrophils (%) (Auto) 76.3H, Lymphocytes ( %) (Auto) 8.6L, Monocytes (%) (Auto) 13.5H, Eosinophils (%) (Auto) 0.7, Basophils (%) (Auto) 0.9, Sodium Level 127L, Potassium Level 4.2, Chloride Level 94L, Carbon Dioxide Level 23, Anion Gap 10, Blood Urea Nitrogen 13, Creatinine 1.5H, Estimat Glomerular Filtration Rate 57.4, Glucose Level 129H, Osmolality 268L, Uric Acid 5.9, Calcium Level 9.3, Phosphorus Level 3.2, Magnesium Level 2.1, Total Bilirubin 0.6, Aspartate Amino Transf (AST/SGOT) 19, Alanine Aminotransferase (ALT/SGPT) 24, Alkaline Phosphatase 82, C-Reactive Protein, Quantitative 2.9H, Pro-B-Type Natriuretic Peptide 141H, Total Protein 8.1, Albumin 3.6, Globulin 4.5, Albumin/Globulin Ratio 0.8L 07/04/18 17:15: Urine Osmolality 383L, Urine Random Sodium < 20L Height (Feet): 6 Height (Inches): 2.00 Weight (Pounds): 89 Cardiovascular: normal rate Respiratory/Chest: lungs clear Abdomen: tender Isabel Bassett MD Jul 04, 2018 20:49
--- NOTE | 2018-07-04 23:53 | Cardiology Progress Note ---
Assessment/Plan Assessment/Plan 1. Accelerated hypertension, well controlled BP, continue nifedipine ER, hydralazine and minoxidil. 2. History of congestive heart failure, not clinically in heart failure, 2D echocardiography reveals normal LV systolic function with mild LV diastolic function and normal intracardiac filling pressure. 3. Hyponatremia, improving, could be secondary to diuretics. Subjective Subjective No cardiac events noted. Objective Last 24 Hour Vital Signs Date Time Temp Pulse Resp B/P (MAP) Pulse Ox O2 Delivery O2 Flow Rate FiO2 07/04/18 23:04 Room Air 07/04/18 22:00 114/63 07/04/18 20:38 90 114/63 07/04/18 20:00 98.3 90 20 114/63 (80) 98 07/04/18 16:00 98.9 94 18 128/66 (86) 98 07/04/18 14:50 141/86 07/04/18 12:00 98.0 88 19 141/86 (104) 98 07/04/18 10:12 87 138/83 07/04/18 10:12 87 138/83 07/04/18 09:00 Room Air 07/04/18 08:00 97.8 87 19 138/83 (101) 98 07/04/18 05:50 125/75 07/04/18 03:49 97.7 79 18 143/87 (105) 94 07/04/18 00:00 97.7 69 17 116/72 (87) 95 Intake and Output 07/03/18 07/04/18 19:00 07:00 Intake Total 390 ml 510 ml Output Total 500 ml Balance -110 ml 510 ml Intake Oral 240 ml 480 ml IV Total 150 ml 30 ml Output Urine Total 500 ml # Voids 3 # Bowel Movements 3 2D Echo: EF 60%, Mod LVH, Mod AR, Grade I LVDD, RVSP 11 mmHg Laboratory Tests Test 07/04/18 05:10 07/04/18 17:15 White Blood Count 5.4 K/UL (4.8-10.8) Red Blood Count 4.40 M/UL (4.70-6.10) L Hemoglobin 13.2 G/DL (14.2-18.0) L Hematocrit 39.7 % (42.0-52.0) L Mean Corpuscular Volume 90 FL (80-99) Mean Corpuscular Hemoglobin 30.0 PG (27.0-31.0) Mean Corpuscular Hemoglobin Concent 33.2 G/DL (32.0-36.0) Red Cell Distribution Width 13.7 % (11.6-14.8) Platelet Count 241 K/UL (150-450) Mean Platelet Volume 6.6 FL (6.5-10.1) Neutrophils (%) (Auto) 76.3 % (45.0-75.0) H Lymphocytes (%) (Auto) 8.6 % (20.0-45.0) L Monocytes (%) (Auto) 13.5 % (1.0-10.0) H Eosinophils (%) (Auto) 0.7 % (0.0-3.0) Basophils (%) (Auto) 0.9 % (0.0-2.0) Sodium Level 127 MMOL/L (136-145) L Potassium Level 4.2 MMOL/L (3.5-5.1) Chloride Level 94 MMOL/L (98-107) L Carbon Dioxide Level 23 MMOL/L (21-32) Anion Gap 10 mmol/L (5-15) Blood Urea Nitrogen 13 mg/dL (7-18) Creatinine 1.5 MG/DL (0.55-1.30) H Estimat Glomerular Filtration Rate 57.4 mL/min (>60) Glucose Level 129 MG/DL (74-106) H Osmolality 268 mOsm/kg (297-317) L Uric Acid 5.9 MG/DL (2.6-7.2) Calcium Level 9.3 MG/DL (8.5-10.1) Phosphorus Level 3.2 MG/DL (2.5-4.9) Magnesium Level 2.1 MG/DL (1.8-2.4) Total Bilirubin 0.6 MG/DL (0.2-1.0) Aspartate Amino Transf (AST/SGOT) 19 U/L (15-37) Alanine Aminotransferase (ALT/SGPT) 24 U/L (12-78) Alkaline Phosphatase 82 U/L (46-116) C-Reactive Protein, Quantitative 2.9 mg/dL (0.00-0.90) H Pro-B-Type Natriuretic Peptide 141 pg/mL (0-125) H Total Protein 8.1 G/DL (6.4-8.2) Albumin 3.6 G/DL (3.4-5.0) Globulin 4.5 g/dL Albumin/Globulin Ratio 0.8 (1.0-2.7) L Urine Osmolality 383 mOsm/kg (429-449) L Urine Random Sodium < 20 mmol/L (20-110) L Objective HEENT: Atraumatic, normocephalic. Anicteric. Pupils are equal, round, and reactive to light and accommodation. Extraocular muscles intact. NECK: JVP less than 5 cm. No carotid bruit. Carotid upstroke is 2+ bilaterally. CARDIOVASCULAR: Normal S1, S2. Regular rate and rhythm. No murmurs, gallops, or rubs. PMI is at fourth intercostal space in the midclavicular line. LUNGS: Clear to auscultation bilaterally. ABDOMEN: Soft, nontender, nondistended. No hepatosplenomegaly. Positive bowel sounds. EXTREMITIES: No evidence of edema, clubbing, or cyanosis. Reece Remy MD Jul 04, 2018 23:53
[2018-07-05] VITALS (7 sets, daily range): BP systolic 106–126; BP diastolic 63–75
[2018-07-05] MEDS: Guaifenesin/DM 10ml syrup ORAL PRN ×2 (03:09→22:20)
[2018-07-05] MEDS: Sucralfate 1gm tab ORAL SCH ×3 (06:31→16:44)
[2018-07-05] MEDS: HydrALAZINE 50mg tab ORAL SCH ×3 (06:32→22:21)
--- NOTE | 2018-07-05 07:10 | NUR ---
HAND-OFF: Report given to RAMESH Henry.
[2018-07-05 07:30] LABS: HEMATOCRIT 35.1 % (42.0-52.0); HEMOGLOBIN 11.9 G/DL (14.2-18.0); MEAN CORPUSCULAR VOLUME 89 FL (80-99); PLATELET COUNT 193 K/UL (150-450); RED BLOOD COUNT 3.94 M/UL (4.70-6.10); RED CELL DISTRIBUTION WIDTH 13.3 % (11.6-14.8); WHITE BLOOD COUNT 3.7 K/UL (4.8-10.8)
--- NOTE | 2018-07-05 07:35 | NUR ---
NURSE NOTES: Received report RAMESH Alexander. Rounding done with outgoing nurse. Patient a/o x4 lying on the bed. No respiratory distress noted. c/o abdominal pain 3/10 and patient stat it is manageable. IV patent. Bed in lowest position, call light within reach. Will continue to monitor.
[2018-07-05 08:03] LABS: INR 1.1 (0.9-1.1)
[2018-07-05 08:04] LABS: ALANINE AMINOTRANSFERASE 18 U/L (12-78); ALBUMIN/GLOBULIN RATIO 0.8 (1.0-2.7); ALKALINE PHOSPHATASE 66 U/L (46-116); ANION GAP 10 mmol/L (5-15); ASPARTATE AMINO TRANSFERASE 22 U/L (15-37); BILIRUBIN,TOTAL 0.3 MG/DL (0.2-1.0); BLOOD UREA NITROGEN 16 mg/dL (7-18); CALCIUM 8.7 MG/DL (8.5-10.1); CARBON DIOXIDE 22 MMOL/L (21-32); CHLORIDE 97 MMOL/L (98-107); CREATININE 1.4 MG/DL (0.55-1.30); POTASSIUM 4.3 MMOL/L (3.5-5.1); SODIUM 129 MMOL/L (136-145)
[2018-07-05 08:18] LABS: PHOSPHORUS 3.1 MG/DL (2.5-4.9)
[2018-07-05] MEDS: Atorvastatin 20mg tab ORAL SCH (08:28)
[2018-07-05] MEDS: Carvedilol 25mg Tab ORAL SCH ×2 (08:28→21:00)
[2018-07-05] MEDS: HYDROcodone/Acetamin 5/325 tab ORAL PRN (08:46)
--- NOTE | 2018-07-05 10:19 | General Progress Note ---
Assessment/Plan Problem List: (1) Uncontrolled hypertension ICD Codes: I10 - Essential (primary) hypertension SNOMED: 13466748, [id number] Status: progressing Assessment/Plan distended abdomen and ordered kub ileus vs sbo consulted dr nieves and dr romano htn imaging done positive bowel sounds bp is improving Subjective ROS Limited/Unobtainable: Yes Allergies: Coded Allergies: No Known Allergies (Unverified , 07/01/18) Objective Last 24 Hour Vital Signs Date Time Temp Pulse Resp B/P (MAP) Pulse Ox O2 Delivery O2 Flow Rate FiO2 07/05/18 09:00 Room Air 07/05/18 08:41 78 112/68 07/05/18 08:28 78 112/68 07/05/18 08:00 97.9 78 20 112/68 (83) 100 07/05/18 06:32 124/75 07/05/18 04:00 98.6 73 20 124/75 (91) 97 07/05/18 00:00 99.0 77 20 124/72 (89) 98 07/04/18 23:04 Room Air 07/04/18 22:00 114/63 07/04/18 20:38 90 114/63 07/04/18 20:00 98.3 90 20 114/63 (80) 98 07/04/18 16:00 98.9 94 18 128/66 (86) 98 07/04/18 14:50 141/86 07/04/18 12:00 98.0 88 19 141/86 (104) 98 Intake and Output 07/04/18 07/05/18 18:59 06:59 Intake Total 750 ml Balance 750 ml Intake Oral 300 ml IV Total 450 ml # Voids 3 # Bowel Movements 2 2 Laboratory Tests 07/04/18 17:15: Urine Osmolality 383L, Urine Random Sodium < 20L 07/05/18 05:38: White Blood Count 3.7L, Red Blood Count 3.94L, Hemoglobin 11.9L, Hematocrit 35.1L, Mean Corpuscular Volume 89, Mean Corpuscular Hemoglobin 30.3, Mean Corpuscular Hemoglobin Concent 33.9, Red Cell Distribution Width 13.3, Platelet Count 193, Mean Platelet Volume 6.6, Neutrophils (%) (Auto) , Lymphocytes (%) ( Auto) , Monocytes (%) (Auto) , Eosinophils (%) (Auto) , Basophils (%) (Auto) , Differential Total Cells Counted 100, Neutrophils % (Manual) 49, Lymphocytes % ( Manual) 35, Monocytes % (Manual) 13H, Eosinophils % (Manual) 3, Basophils % ( Manual) 0, Band Neutrophils 0, Platelet Estimate Adequate, Platelet Morphology Normal, Red Blood Cell Morphology Normal, Erythrocyte Sedimentation Rate 44H, Prothrombin Time 11.3, Prothromb Time International Ratio 1.1, Activated Partial Thromboplast Time 33, Sodium Level 129L, Potassium Level 4.3, Chloride Level 97L, Carbon Dioxide Level 22, Anion Gap 10, Blood Urea Nitrogen 16, Creatinine 1.4H, Estimat Glomerular Filtration Rate > 60, Glucose Level 96, Osmolality 271L, Uric Acid 6.5, Calcium Level 8.7, Phosphorus Level 3.1, Magnesium Level 1.8, Total Bilirubin 0.3, Aspartate Amino Transf (AST/SGOT) 22, Alanine Aminotransferase (ALT/SGPT) 18, Alkaline Phosphatase 66, C-Reactive Protein, Quantitative 8.3H, Total Protein 7.0, Albumin 3.0L, Globulin 4.0, Albumin/Globulin Ratio 0.8L, Lipase 66L Height (Feet): 6 Height (Inches): 2.00 Weight (Pounds): 89 Neck: supple Cardiovascular: normal rate Abdomen: distended Isabel Bassett MD Jul 05, 2018 10:19
--- NOTE | 2018-07-05 11:42 | NUR ---
CASE MANAGEMENT:REVIEW 07/04/2018 SI: UNCONTROLLED HTN. HYPONATREMIA T 98.9 HR 94 RR 18 B/P 128/66 SATS 98% ON RA NA 127 CL 94 CR 1.5 GLU 129 IS: IVF @ 50 ml/HR COREG PO Q12H NEURONTIN PO QHS PROTONIX PO BID HYDRALAZINE PO Q8H COZAAR PO QD CARAFATE PO QD PROCARDIA XL PO QD : MED/SURG STATUS DCP: FROM THE "[facility]" 07/05/2018 SI: UNCONTROLLED HTN. HYPONATREMIA T 99 HR 77 RR 20 B/P 124/72 SATS 98% ON RA NA 129 CL 97 CR 1.4 IS: IVF @ 50 mL/HR COREG PO Q12H NEURONTIN PO QHS PROTONIX PO BID HYDRALAZINE PO Q8H COZAAR PO QD CARAFATE PO QD PROCARDIA XL PO QD HYPERTONIC SALINE IV X1 : MED/SURG STATUS DCP: FROM THE "[facility]"
[2018-07-05] MEDS ORDERED: NaCl 3% 500ml 500 ML IV ONE (12:00)
--- NOTE | 2018-07-05 12:30 | Nephrology Progress Note ---
Assessment/Plan Problem List: (1) Uncontrolled hypertension (2) Hyponatremia Assessment Hypertensive Urgency Low Na likely depletional CHF Chronic pain Plan 3% saline repeat today Adjust BP meds per orders CXR 2D Echo noted monitor Na Subjective ROS Limited/Unobtainable: No Constitutional: Reports: malaise Objective Objective Last 24 Hour Vital Signs Date Time Temp Pulse Resp B/P (MAP) Pulse Ox O2 Delivery O2 Flow Rate FiO2 07/05/18 12:00 98.2 75 19 123/69 (87) 98 07/05/18 09:00 Room Air 07/05/18 08:41 78 112/68 07/05/18 08:28 78 112/68 07/05/18 08:00 97.9 78 20 112/68 (83) 100 07/05/18 06:32 124/75 07/05/18 04:00 98.6 73 20 124/75 (91) 97 07/05/18 00:00 99.0 77 20 124/72 (89) 98 07/04/18 23:04 Room Air 07/04/18 22:00 114/63 07/04/18 20:38 90 114/63 07/04/18 20:00 98.3 90 20 114/63 (80) 98 07/04/18 16:00 98.9 94 18 128/66 (86) 98 07/04/18 14:50 141/86 Intake and Output 07/04/18 07/05/18 18:59 06:59 Intake Total 750 ml Balance 750 ml Intake Oral 300 ml IV Total 450 ml # Voids 3 # Bowel Movements 2 2 Laboratory Tests 07/04/18 17:15: Urine Osmolality 383L, Urine Random Sodium < 20L 07/05/18 05:38: White Blood Count 3.7L, Red Blood Count 3.94L, Hemoglobin 11.9L, Hematocrit 35.1L, Mean Corpuscular Volume 89, Mean Corpuscular Hemoglobin 30.3, Mean Corpuscular Hemoglobin Concent 33.9, Red Cell Distribution Width 13.3, Platelet Count 193, Mean Platelet Volume 6.6, Neutrophils (%) (Auto) , Lymphocytes (%) ( Auto) , Monocytes (%) (Auto) , Eosinophils (%) (Auto) , Basophils (%) (Auto) , Differential Total Cells Counted 100, Neutrophils % (Manual) 49, Lymphocytes % ( Manual) 35, Monocytes % (Manual) 13H, Eosinophils % (Manual) 3, Basophils % ( Manual) 0, Band Neutrophils 0, Platelet Estimate Adequate, Platelet Morphology Normal, Red Blood Cell Morphology Normal, Erythrocyte Sedimentation Rate 44H, Prothrombin Time 11.3, Prothromb Time International Ratio 1.1, Activated Partial Thromboplast Time 33, Sodium Level 129L, Potassium Level 4.3, Chloride Level 97L, Carbon Dioxide Level 22, Anion Gap 10, Blood Urea Nitrogen 16, Creatinine 1.4H, Estimat Glomerular Filtration Rate > 60, Glucose Level 96, Osmolality 271L, Uric Acid 6.5, Calcium Level 8.7, Phosphorus Level 3.1, Magnesium Level 1.8, Total Bilirubin 0.3, Aspartate Amino Transf (AST/SGOT) 22, Alanine Aminotransferase (ALT/SGPT) 18, Alkaline Phosphatase 66, C-Reactive Protein, Quantitative 8.3H, Total Protein 7.0, Albumin 3.0L, Globulin 4.0, Albumin/Globulin Ratio 0.8L, Lipase 66L Height (Feet): 6 Height (Inches): 2.00 Weight (Pounds): 89 General Appearance: no apparent distress Objective no change Edy Sapp MD Jul 05, 2018 12:30
--- NOTE | 2018-07-05 13:55 | NUR ---
NURSE NOTES: Patient stat he is hungry and wants to know when he can get food. Dr. Israel was notified and said he will check the chart and will order by himself.
--- NOTE | 2018-07-05 15:30 | NUR ---
NURSE NOTES: Dr. Israel called and said no answer for diet because it is surgical issues.
--- NOTE | 2018-07-05 15:36 | General Progress Note ---
Assessment/Plan Assessment/Plan Assessment - SB and Colonic dilation on CT, ? ileus or functional - HTN - Azotemia - Hyponatremia Recommendations - follow KUB - sugical f/u - diet per surgery - correct lytes Subjective Allergies: Coded Allergies: No Known Allergies (Unverified , 07/01/18) Subjective above noted no vomiting (+) BM d/w RN Objective Last 24 Hour Vital Signs Date Time Temp Pulse Resp B/P (MAP) Pulse Ox O2 Delivery O2 Flow Rate FiO2 07/05/18 14:00 106/63 (77) 07/05/18 14:00 106/63 07/05/18 12:00 98.2 75 19 123/69 (87) 98 07/05/18 09:00 Room Air 07/05/18 08:41 78 112/68 07/05/18 08:28 78 112/68 07/05/18 08:00 97.9 78 20 112/68 (83) 100 07/05/18 06:32 124/75 07/05/18 04:00 98.6 73 20 124/75 (91) 97 07/05/18 00:00 99.0 77 20 124/72 (89) 98 07/04/18 23:04 Room Air 07/04/18 22:00 114/63 07/04/18 20:38 90 114/63 07/04/18 20:00 98.3 90 20 114/63 (80) 98 07/04/18 16:00 98.9 94 18 128/66 (86) 98 Intake and Output 07/04/18 07/05/18 18:59 06:59 Intake Total 750 ml Balance 750 ml Intake Oral 300 ml IV Total 450 ml # Voids 3 # Bowel Movements 2 2 Laboratory Tests 07/04/18 17:15: Urine Osmolality 383L, Urine Random Sodium < 20L 07/05/18 05:38: White Blood Count 3.7L, Red Blood Count 3.94L, Hemoglobin 11.9L, Hematocrit 35.1L, Mean Corpuscular Volume 89, Mean Corpuscular Hemoglobin 30.3, Mean Corpuscular Hemoglobin Concent 33.9, Red Cell Distribution Width 13.3, Platelet Count 193, Mean Platelet Volume 6.6, Neutrophils (%) (Auto) , Lymphocytes (%) ( Auto) , Monocytes (%) (Auto) , Eosinophils (%) (Auto) , Basophils (%) (Auto) , Differential Total Cells Counted 100, Neutrophils % (Manual) 49, Lymphocytes % ( Manual) 35, Monocytes % (Manual) 13H, Eosinophils % (Manual) 3, Basophils % ( Manual) 0, Band Neutrophils 0, Platelet Estimate Adequate, Platelet Morphology Normal, Red Blood Cell Morphology Normal, Erythrocyte Sedimentation Rate 44H, Prothrombin Time 11.3, Prothromb Time International Ratio 1.1, Activated Partial Thromboplast Time 33, Sodium Level 129L, Potassium Level 4.3, Chloride Level 97L, Carbon Dioxide Level 22, Anion Gap 10, Blood Urea Nitrogen 16, Creatinine 1.4H, Estimat Glomerular Filtration Rate > 60, Glucose Level 96, Osmolality 271L, Uric Acid 6.5, Calcium Level 8.7, Phosphorus Level 3.1, Magnesium Level 1.8, Total Bilirubin 0.3, Aspartate Amino Transf (AST/SGOT) 22, Alanine Aminotransferase (ALT/SGPT) 18, Alkaline Phosphatase 66, C-Reactive Protein, Quantitative 8.3H, Total Protein 7.0, Albumin 3.0L, Globulin 4.0, Albumin/Globulin Ratio 0.8L, Lipase 66L Height (Feet): 6 Height (Inches): 2.00 Weight (Pounds): 89 Objective WDWN AA man NCAT supple CTA RR Abd soft distended nontender No edema Katerine Alva MD Jul 05, 2018 15:36
--- NOTE | 2018-07-05 15:50 | Surgery Progress Note ---
Surgery Progress Note Subjective Additional Comments multiple diarrhea since study yesterday. no n/v/f/c. hungry. CT noted Objective Last 24 Hour Vital Signs Date Time Temp Pulse Resp B/P (MAP) Pulse Ox O2 Delivery O2 Flow Rate FiO2 07/05/18 14:00 106/63 (77) 07/05/18 14:00 106/63 07/05/18 12:00 98.2 75 19 123/69 (87) 98 07/05/18 09:00 Room Air 07/05/18 08:41 78 112/68 07/05/18 08:28 78 112/68 07/05/18 08:00 97.9 78 20 112/68 (83) 100 07/05/18 06:32 124/75 07/05/18 04:00 98.6 73 20 124/75 (91) 97 07/05/18 00:00 99.0 77 20 124/72 (89) 98 07/04/18 23:04 Room Air 07/04/18 22:00 114/63 07/04/18 20:38 90 114/63 07/04/18 20:00 98.3 90 20 114/63 (80) 98 07/04/18 16:00 98.9 94 18 128/66 (86) 98 I&O Intake and Output 07/04/18 07/05/18 18:59 06:59 Intake Total 750 ml Balance 750 ml Intake Oral 300 ml IV Total 450 ml # Voids 3 # Bowel Movements 2 2 Drains: none Cardiovascular: RSR Respiratory: clear Abdomen: soft, non-tender, present bowel sounds, non-distended Extremities: no tenderness, no cyanosis Laboratory Tests Test 07/04/18 17:15 07/05/18 05:38 Urine Osmolality 383 mOsm/kg (429-449) L Urine Random Sodium < 20 mmol/L (20-110) L White Blood Count 3.7 K/UL (4.8-10.8) L Red Blood Count 3.94 M/UL (4.70-6.10) L Hemoglobin 11.9 G/DL (14.2-18.0) L Hematocrit 35.1 % (42.0-52.0) L Mean Corpuscular Volume 89 FL (80-99) Mean Corpuscular Hemoglobin 30.3 PG (27.0-31.0) Mean Corpuscular Hemoglobin Concent 33.9 G/DL (32.0-36.0) Red Cell Distribution Width 13.3 % (11.6-14.8) Platelet Count 193 K/UL (150-450) Mean Platelet Volume 6.6 FL (6.5-10.1) Neutrophils (%) (Auto) % (45.0-75.0) Lymphocytes (%) (Auto) % (20.0-45.0) Monocytes (%) (Auto) % (1.0-10.0) Eosinophils (%) (Auto) % (0.0-3.0) Basophils (%) (Auto) % (0.0-2.0) Differential Total Cells Counted 100 Neutrophils % (Manual) 49 % (45-75) Lymphocytes % (Manual) 35 % (20-45) Monocytes % (Manual) 13 % (1-10) H Eosinophils % (Manual) 3 % (0-3) Basophils % (Manual) 0 % (0-2) Band Neutrophils 0 % (0-8) Platelet Estimate Adequate Platelet Morphology Normal Red Blood Cell Morphology Normal Erythrocyte Sedimentation Rate 44 MM/HR (0-20) H Prothrombin Time 11.3 SEC (9.30-11.50) Prothromb Time International Ratio 1.1 (0.9-1.1) Activated Partial Thromboplast Time 33 SEC (23-33) Sodium Level 129 MMOL/L (136-145) L Potassium Level 4.3 MMOL/L (3.5-5.1) Chloride Level 97 MMOL/L (98-107) L Carbon Dioxide Level 22 MMOL/L (21-32) Anion Gap 10 mmol/L (5-15) Blood Urea Nitrogen 16 mg/dL (7-18) Creatinine 1.4 MG/DL (0.55-1.30) H Estimat Glomerular Filtration Rate > 60 mL/min (>60) Glucose Level 96 MG/DL (74-106) Osmolality 271 mOsm/kg (297-317) L Uric Acid 6.5 MG/DL (2.6-7.2) Calcium Level 8.7 MG/DL (8.5-10.1) Phosphorus Level 3.1 MG/DL (2.5-4.9) Magnesium Level 1.8 MG/DL (1.8-2.4) Total Bilirubin 0.3 MG/DL (0.2-1.0) Aspartate Amino Transf (AST/SGOT) 22 U/L (15-37) Alanine Aminotransferase (ALT/SGPT) 18 U/L (12-78) Alkaline Phosphatase 66 U/L (46-116) C-Reactive Protein, Quantitative 8.3 mg/dL (0.00-0.90) H Total Protein 7.0 G/DL (6.4-8.2) Albumin 3.0 G/DL (3.4-5.0) L Globulin 4.0 g/dL Albumin/Globulin Ratio 0.8 (1.0-2.7) L Lipase 66 U/L (73-393) L Plan Problems: (1) Uncontrolled hypertension (2) Hyponatremia (3) Abdominal distension Assessment & Plan: CT noted - mpression: Diffusely massively dilated fluid- filled small bowel with nondilated distal ileum. Borderline dilated fluid- filled proximal colon, with nondilated distal colon. Pattern is somewhat unusual. Finding of massively dilated small bowel with the distal transition raises concern for distal small bowel obstruction. There may also be concomitant obstruction of the distal transverse colon. Evidence of tapering and slightly swirled mesentery in the right lower quadrant mesenteric root raises the possibility of an internal hernia. However, transition point of the transverse colon is remote from the small bowel transition point, so other etiologies should be considered. Other possibilities include separate small bowel and colon obstruction secondary to adhesions in 2 different locations. Findings could also be functional in nature. Consider follow-up radiographs to assess for transit of contrast and correlation with clinical findings. Since study has had multiple BM's abd exam benign now no longer distended no pain resolving keep NPO for now IV fluids will follow with recs thank you (4) Abdominal pain Donnie Weinberg Jul 05, 2018 15:50
--- NOTE | 2018-07-05 15:50 | NUR ---
NURSE NOTES: Dr. Weinberg came and check the patient. explained to the patient he needs NPO for one day more.
[2018-07-05] MEDS ORDERED: Tubing IV Secondary IV ONE (17:22)
--- NOTE | 2018-07-05 19:25 | NUR ---
HAND-OFF: Report given to Coty, [employer]PRESENT[employer]. Patient in stable condition.
--- NOTE | 2018-07-05 19:25 | NUR ---
NURSE NOTES:Patient received from [place] Patient denies any pain at this time . nos/s of distress noted RFA g#22 D5NS WITH KCL 20 MEQ @50 cc /hr infusing well . call light within reach .bed in low position at all times will continue to monitor patient .
[2018-07-06] VITALS: BP 107/57
[2018-07-06 04:00] VITALS: BP 129/71
[2018-07-06] MEDS: Sucralfate 1gm tab ORAL SCH ×2 (05:43→11:33)
[2018-07-06] MEDS: HydrALAZINE 50mg tab ORAL SCH ×3 (05:43→22:10)
--- NOTE | 2018-07-06 07:28 | NUR ---
NURSE NOTES: Received report from MARIA R Ansari. Patient a/o x4 and patient stat he is angry. Explained Dr. Weinberg will resume the diet but no order yet. Patient verbalized understanding. Bed in lowest position, call light within reach. Will continue to monitor.
--- NOTE | 2018-07-06 07:31 | NUR ---
HAND-OFF: Report given to Tracy Neri R.N.
[2018-07-06 08:00] VITALS: BP 131/72
[2018-07-06 08:00] LABS: BASOPHILS % (AUTO) 0.6 % (0.0-2.0); EOSINOPHILS % (AUTO) 3.3 % (0.0-3.0); HEMATOCRIT 35.5 % (42.0-52.0); HEMOGLOBIN 11.9 G/DL (14.2-18.0); LYMPHOCYTES % (AUTO) 19.6 % (20.0-45.0); MEAN CORPUSCULAR VOLUME 90 FL (80-99); MONOCYTES % (AUTO) 17.5 % (1.0-10.0); NEUTROPHILS % (AUTO) 59.1 % (45.0-75.0); PLATELET COUNT 194 K/UL (150-450); RED BLOOD COUNT 3.95 M/UL (4.70-6.10); RED CELL DISTRIBUTION WIDTH 13.3 % (11.6-14.8); WHITE BLOOD COUNT 4.9 K/UL (4.8-10.8)
[2018-07-06 08:22] LABS: ANION GAP 12 mmol/L (5-15); BLOOD UREA NITROGEN 9 mg/dL (7-18); CALCIUM 8.3 MG/DL (8.5-10.1); CARBON DIOXIDE 21 MMOL/L (21-32); CHLORIDE 102 MMOL/L (98-107); POTASSIUM 3.8 MMOL/L (3.5-5.1); SODIUM 135 MMOL/L (136-145)
[2018-07-06] MEDS: Atorvastatin 20mg tab ORAL SCH (08:40)
[2018-07-06] MEDS: Carvedilol 25mg Tab ORAL SCH ×2 (08:40→20:22)
[2018-07-06] MEDS: HYDROcodone/Acetamin 5/325 tab ORAL PRN (08:41)
--- NOTE | 2018-07-06 11:08 | NUR ---
NURSE NOTES: Patient off the unit for abdomen x-ray 2 view. Patient in stable condition.
--- NOTE | 2018-07-06 11:29 | NUR ---
NURSE NOTES: Patient came back to the unit in stable condition.
--- NOTE | 2018-07-06 11:56 | General Progress Note ---
Assessment/Plan Problem List: (1) Uncontrolled hypertension ICD Codes: I10 - Essential (primary) hypertension SNOMED: 07727203, [id number] Status: progressing Assessment/Plan agree w surgeon and gi re distented abdomen positive bowel sounds bp is improving reviewedc chart and labs Subjective ROS Limited/Unobtainable: Yes Allergies: Coded Allergies: No Known Allergies (Unverified , 07/01/18) Objective Last 24 Hour Vital Signs Date Time Temp Pulse Resp B/P (MAP) Pulse Ox O2 Delivery O2 Flow Rate FiO2 07/06/18 09:00 Room Air 07/06/18 08:40 78 131/72 07/06/18 08:40 78 131/72 07/06/18 08:00 98.4 78 18 131/72 (91) 97 07/06/18 05:43 127/67 07/06/18 04:00 97.5 77 18 129/71 (90) 98 07/06/18 00:00 98.0 70 16 107/57 (74) 96 07/05/18 22:21 120/75 07/05/18 21:00 Room Air 07/05/18 21:00 71 126/71 07/05/18 20:00 98.0 71 20 126/71 (89) 96 07/05/18 16:00 97.4 77 19 114/68 (83) 99 07/05/18 14:00 106/63 (77) 07/05/18 14:00 106/63 07/05/18 12:00 98.2 75 19 123/69 (87) 98 Intake and Output 07/05/18 07/06/18 18:59 06:59 Intake Total 1010 ml 870 ml Output Total 750 ml 1400 ml Balance 260 ml -530 ml Intake Oral 200 ml IV Total 810 ml 870 ml Output Urine Total 750 ml 1400 ml # Voids 3 3 # Bowel Movements 5 3 Laboratory Tests 07/06/18 05:36: White Blood Count 4.9, Red Blood Count 3.95L, Hemoglobin 11.9L, Hematocrit 35.5L , Mean Corpuscular Volume 90, Mean Corpuscular Hemoglobin 30.0, Mean Corpuscular Hemoglobin Concent 33.4, Red Cell Distribution Width 13.3, Platelet Count 194, Mean Platelet Volume 6.4L, Neutrophils (%) (Auto) 59.1, Lymphocytes ( %) (Auto) 19.6L, Monocytes (%) (Auto) 17.5H, Eosinophils (%) (Auto) 3.3H, Basophils (%) (Auto) 0.6, Sodium Level 135L, Potassium Level 3.8, Chloride Level 102, Carbon Dioxide Level 21, Anion Gap 12, Blood Urea Nitrogen 9, Creatinine 1.0, Estimat Glomerular Filtration Rate > 60, Glucose Level 95, Calcium Level 8.3L Height (Feet): 6 Height (Inches): 2.00 Weight (Pounds): 89 Cardiovascular: normal rate Abdomen: distended Isabel Bassett MD Jul 06, 2018 11:56
[2018-07-06 12:00] VITALS: BP 116/76
--- NOTE | 2018-07-06 12:36 | General Progress Note ---
Assessment/Plan Assessment/Plan Assessment - SB and Colonic dilation on CT, ? ileus or functional - resolving - HTN - Azotemia - Hyponatremia Recommendations - follow KUB - sugical f/u - diet per surgery - ? begin clears - correct lytes Subjective Allergies: Coded Allergies: No Known Allergies (Unverified , 07/01/18) Subjective above noted no vomiting (+) BM wants to eat just back from xray Objective Last 24 Hour Vital Signs Date Time Temp Pulse Resp B/P (MAP) Pulse Ox O2 Delivery O2 Flow Rate FiO2 07/06/18 09:00 Room Air 07/06/18 08:40 78 131/72 07/06/18 08:40 78 131/72 07/06/18 08:00 98.4 78 18 131/72 (91) 97 07/06/18 05:43 127/67 07/06/18 04:00 97.5 77 18 129/71 (90) 98 07/06/18 00:00 98.0 70 16 107/57 (74) 96 07/05/18 22:21 120/75 07/05/18 21:00 Room Air 07/05/18 21:00 71 126/71 07/05/18 20:00 98.0 71 20 126/71 (89) 96 07/05/18 16:00 97.4 77 19 114/68 (83) 99 07/05/18 14:00 106/63 (77) 07/05/18 14:00 106/63 Intake and Output 07/05/18 07/06/18 18:59 06:59 Intake Total 1010 ml 870 ml Output Total 750 ml 1400 ml Balance 260 ml -530 ml Intake Oral 200 ml IV Total 810 ml 870 ml Output Urine Total 750 ml 1400 ml # Voids 3 3 # Bowel Movements 5 3 Laboratory Tests 07/06/18 05:36: White Blood Count 4.9, Red Blood Count 3.95L, Hemoglobin 11.9L, Hematocrit 35.5L , Mean Corpuscular Volume 90, Mean Corpuscular Hemoglobin 30.0, Mean Corpuscular Hemoglobin Concent 33.4, Red Cell Distribution Width 13.3, Platelet Count 194, Mean Platelet Volume 6.4L, Neutrophils (%) (Auto) 59.1, Lymphocytes ( %) (Auto) 19.6L, Monocytes (%) (Auto) 17.5H, Eosinophils (%) (Auto) 3.3H, Basophils (%) (Auto) 0.6, Sodium Level 135L, Potassium Level 3.8, Chloride Level 102, Carbon Dioxide Level 21, Anion Gap 12, Blood Urea Nitrogen 9, Creatinine 1.0, Estimat Glomerular Filtration Rate > 60, Glucose Level 95, Calcium Level 8.3L Height (Feet): 6 Height (Inches): 2.00 Weight (Pounds): 89 Objective WDWN AA man NCAT supple CTA RR Abd soft distended nontender No edema Katerine Alva MD Jul 06, 2018 12:36
--- NOTE | 2018-07-06 13:01 | Diagnostic Imaging Report ---
INDICATION: Abdominal distention COMPARISON: Radiograph dated 07/04/18 FINDINGS: Single frontal view of the abdomen demonstrates numerous dilated segments of bowel worrisome for obstruction. No evidence of organomegaly, abnormal calcifications or obvious soft tissue masses. Atherosclerotic vascular disease. The osseous structures are intact. IMPRESSION: Numerous dilated segments of bowel worrisome for obstruction, slightly progressed from prior exam, correlation can be obtained with CT for further evaluation.
--- NOTE | 2018-07-06 13:32 | Nephrology Progress Note ---
Assessment/Plan Problem List: (1) Uncontrolled hypertension (2) Hyponatremia (3) Ileus (4) Small bowel obstruction Assessment Hypertensive Urgency Low Na likely depletional CHF Chronic pain Plan Adjust BP meds per orders CXR 2D Echo noted monitor Na Subjective ROS Limited/Unobtainable: No Objective Objective Last 24 Hour Vital Signs Date Time Temp Pulse Resp B/P (MAP) Pulse Ox O2 Delivery O2 Flow Rate FiO2 07/06/18 12:00 97.7 72 18 116/76 (89) 98 07/06/18 09:00 Room Air 07/06/18 08:40 78 131/72 07/06/18 08:40 78 131/72 07/06/18 08:00 98.4 78 18 131/72 (91) 97 07/06/18 05:43 127/67 07/06/18 04:00 97.5 77 18 129/71 (90) 98 07/06/18 00:00 98.0 70 16 107/57 (74) 96 07/05/18 22:21 120/75 07/05/18 21:00 Room Air 07/05/18 21:00 71 126/71 07/05/18 20:00 98.0 71 20 126/71 (89) 96 07/05/18 16:00 97.4 77 19 114/68 (83) 99 07/05/18 14:00 106/63 (77) 07/05/18 14:00 106/63 Intake and Output 07/05/18 07/06/18 18:59 06:59 Intake Total 1010 ml 870 ml Output Total 750 ml 1400 ml Balance 260 ml -530 ml Intake Oral 200 ml IV Total 810 ml 870 ml Output Urine Total 750 ml 1400 ml # Voids 3 3 # Bowel Movements 5 3 Laboratory Tests 07/06/18 05:36: White Blood Count 4.9, Red Blood Count 3.95L, Hemoglobin 11.9L, Hematocrit 35.5L , Mean Corpuscular Volume 90, Mean Corpuscular Hemoglobin 30.0, Mean Corpuscular Hemoglobin Concent 33.4, Red Cell Distribution Width 13.3, Platelet Count 194, Mean Platelet Volume 6.4L, Neutrophils (%) (Auto) 59.1, Lymphocytes ( %) (Auto) 19.6L, Monocytes (%) (Auto) 17.5H, Eosinophils (%) (Auto) 3.3H, Basophils (%) (Auto) 0.6, Sodium Level 135L, Potassium Level 3.8, Chloride Level 102, Carbon Dioxide Level 21, Anion Gap 12, Blood Urea Nitrogen 9, Creatinine 1.0, Estimat Glomerular Filtration Rate > 60, Glucose Level 95, Calcium Level 8.3L Height (Feet): 6 Height (Inches): 2.00 Weight (Pounds): 89 Cardiovascular: normal rate Respiratory/Chest: decreased breath sounds Abdomen: soft Objective no change Edy Sapp MD Jul 06, 2018 13:32
--- NOTE | 2018-07-06 13:39 | Nephrology Progress Note ---
Assessment/Plan Problem List: (1) Uncontrolled hypertension (2) Hyponatremia (3) Ileus (4) Small bowel obstruction Assessment Hypertensive Urgency Low Na likely depletional CHF Chronic pain Plan NPO Adjust BP meds Rearrange meds per orders CXR 2D Echo noted due abd CT monitor Na Subjective ROS Limited/Unobtainable: No Constitutional: Reports: malaise Objective Objective Last 24 Hour Vital Signs Date Time Temp Pulse Resp B/P (MAP) Pulse Ox O2 Delivery O2 Flow Rate FiO2 07/06/18 12:00 97.7 72 18 116/76 (89) 98 07/06/18 09:00 Room Air 07/06/18 08:40 78 131/72 07/06/18 08:40 78 131/72 07/06/18 08:00 98.4 78 18 131/72 (91) 97 07/06/18 05:43 127/67 07/06/18 04:00 97.5 77 18 129/71 (90) 98 07/06/18 00:00 98.0 70 16 107/57 (74) 96 07/05/18 22:21 120/75 07/05/18 21:00 Room Air 07/05/18 21:00 71 126/71 07/05/18 20:00 98.0 71 20 126/71 (89) 96 07/05/18 16:00 97.4 77 19 114/68 (83) 99 07/05/18 14:00 106/63 (77) 07/05/18 14:00 106/63 Intake and Output 07/05/18 07/06/18 18:59 06:59 Intake Total 1010 ml 870 ml Output Total 750 ml 1400 ml Balance 260 ml -530 ml Intake Oral 200 ml IV Total 810 ml 870 ml Output Urine Total 750 ml 1400 ml # Voids 3 3 # Bowel Movements 5 3 Laboratory Tests 07/06/18 05:36: White Blood Count 4.9, Red Blood Count 3.95L, Hemoglobin 11.9L, Hematocrit 35.5L , Mean Corpuscular Volume 90, Mean Corpuscular Hemoglobin 30.0, Mean Corpuscular Hemoglobin Concent 33.4, Red Cell Distribution Width 13.3, Platelet Count 194, Mean Platelet Volume 6.4L, Neutrophils (%) (Auto) 59.1, Lymphocytes ( %) (Auto) 19.6L, Monocytes (%) (Auto) 17.5H, Eosinophils (%) (Auto) 3.3H, Basophils (%) (Auto) 0.6, Sodium Level 135L, Potassium Level 3.8, Chloride Level 102, Carbon Dioxide Level 21, Anion Gap 12, Blood Urea Nitrogen 9, Creatinine 1.0, Estimat Glomerular Filtration Rate > 60, Glucose Level 95, Calcium Level 8.3L Height (Feet): 6 Height (Inches): 2.00 Weight (Pounds): 89 General Appearance: no apparent distress Cardiovascular: normal rate Respiratory/Chest: decreased breath sounds Abdomen: distended Objective no change Edy Sapp MD Jul 06, 2018 13:39
[2018-07-06] MEDS ORDERED: Metoclopramide 10mg/2ml Inj IVP PRN (13:40)
[2018-07-06] MEDS ORDERED: Hydromorphone 0.5mg/0.5ml inj IVP PRN (13:45)
--- NOTE | 2018-07-06 14:53 | NUR ---
CASE MANAGEMENT: REVIEW SI: UNCONTROLLED HYPERTENSION . SMALL BOWEL OBSTRUCTION T 97.7 HR 72 RR 18 BP 116/76 SAT 98% ROOM AIR LYMPH 19.6 MONO 17.5 EOS 3.3 NA 135 IS: D5 NS w/KCl 20mEq IVF PROTONIX IV Q12HR REGLAN IV Q6HR PRN DILAUDID 0.5MG IV Q4HR PRN CLEAR LIQUID PO DIET MED/SURG STATUS DCP: PATIENT IS FROM [facility]
--- NOTE | 2018-07-06 14:56 | NUR ---
NURSE NOTES: Dr. Weinberg ordered clear liquid diet. Noted and carried out.
[2018-07-06 16:00] VITALS: BP 123/74
--- NOTE | 2018-07-06 18:15 | Surgery Progress Note ---
Surgery Progress Note Subjective Additional Comments states he feels much better. no n/v/f/c. tolerating clears. had 3 BM's today. passing flatus. kub noted tho Objective Last 24 Hour Vital Signs Date Time Temp Pulse Resp B/P (MAP) Pulse Ox O2 Delivery O2 Flow Rate FiO2 07/06/18 16:00 97.6 72 18 123/74 (90) 96 07/06/18 13:33 129/68 07/06/18 12:00 97.7 72 18 116/76 (89) 98 07/06/18 09:00 Room Air 07/06/18 08:40 78 131/72 07/06/18 08:40 78 131/72 07/06/18 08:00 98.4 78 18 131/72 (91) 97 07/06/18 05:43 127/67 07/06/18 04:00 97.5 77 18 129/71 (90) 98 07/06/18 00:00 98.0 70 16 107/57 (74) 96 07/05/18 22:21 120/75 07/05/18 21:00 Room Air 07/05/18 21:00 71 126/71 07/05/18 20:00 98.0 71 20 126/71 (89) 96 I&O Intake and Output 07/05/18 07/06/18 18:59 06:59 Intake Total 1010 ml 870 ml Output Total 750 ml 1400 ml Balance 260 ml -530 ml Intake Oral 200 ml IV Total 810 ml 870 ml Output Urine Total 750 ml 1400 ml # Voids 3 3 # Bowel Movements 5 3 Cardiovascular: RSR Respiratory: clear Abdomen: soft, distended, non-tender, present bowel sounds Extremities: no tenderness, no cyanosis Laboratory Tests Test 07/06/18 05:36 White Blood Count 4.9 K/UL (4.8-10.8) Red Blood Count 3.95 M/UL (4.70-6.10) L Hemoglobin 11.9 G/DL (14.2-18.0) L Hematocrit 35.5 % (42.0-52.0) L Mean Corpuscular Volume 90 FL (80-99) Mean Corpuscular Hemoglobin 30.0 PG (27.0-31.0) Mean Corpuscular Hemoglobin Concent 33.4 G/DL (32.0-36.0) Red Cell Distribution Width 13.3 % (11.6-14.8) Platelet Count 194 K/UL (150-450) Mean Platelet Volume 6.4 FL (6.5-10.1) L Neutrophils (%) (Auto) 59.1 % (45.0-75.0) Lymphocytes (%) (Auto) 19.6 % (20.0-45.0) L Monocytes (%) (Auto) 17.5 % (1.0-10.0) H Eosinophils (%) (Auto) 3.3 % (0.0-3.0) H Basophils (%) (Auto) 0.6 % (0.0-2.0) Sodium Level 135 MMOL/L (136-145) L Potassium Level 3.8 MMOL/L (3.5-5.1) Chloride Level 102 MMOL/L (98-107) Carbon Dioxide Level 21 MMOL/L (21-32) Anion Gap 12 mmol/L (5-15) Blood Urea Nitrogen 9 mg/dL (7-18) Creatinine 1.0 MG/DL (0.55-1.30) Estimat Glomerular Filtration Rate > 60 mL/min (>60) Glucose Level 95 MG/DL (74-106) Calcium Level 8.3 MG/DL (8.5-10.1) L Plan Problems: (1) Uncontrolled hypertension (2) Hyponatremia (3) Abdominal distension Assessment & Plan: CT noted - mpression: Diffusely massively dilated fluid- filled small bowel with nondilated distal ileum. Borderline dilated fluid- filled proximal colon, with nondilated distal colon. Pattern is somewhat unusual. Finding of massively dilated small bowel with the distal transition raises concern for distal small bowel obstruction. There may also be concomitant obstruction of the distal transverse colon. Evidence of tapering and slightly swirled mesentery in the right lower quadrant mesenteric root raises the possibility of an internal hernia. However, transition point of the transverse colon is remote from the small bowel transition point, so other etiologies should be considered. Other possibilities include separate small bowel and colon obstruction secondary to adhesions in 2 different locations. Findings could also be functional in nature. Consider follow-up radiographs to assess for transit of contrast and correlation with clinical findings. today multiple BM's abd exam benign now. soft, minimal distention, non tender resolving tolerating clears KUB noted. clinically improved will follow with gi contrast study tomorrow IV fluids will follow with recs thank you (4) Abdominal pain Donnie Weinberg Jul 06, 2018 18:15
--- NOTE | 2018-07-06 18:51 | NUR ---
NURSE NOTES: Dr. Weinberg ordered x-ray small bowel with gastrografin. Asked Dr. Weinberg regarding midnight NPO and MD said no need midnight NPO.
--- NOTE | 2018-07-06 19:08 | NUR ---
NURSE NOTES:Patient received A/A/OX4 . patient denies any pain at this time . no s/s of distress . LFA Gg # 22 D5NS with kcl 20 meq @ 50 cc /hr infusing well . SCDS in placed Call light within reach . bed in low position at all times . bed alarm on . Addendum: 07/06/18 at 2232 by RAUL DOWELL LVN seizures precaution side rails are padded . no activity of siezure at this time. will continue to monitor .
--- NOTE | 2018-07-06 19:08 | NUR ---
HAND-OFF: Report given to Coty, [employer]MENT [employer]. Patient in stable condition.
--- NOTE | 2018-07-06 19:37 | General Progress Note ---
Assessment/Plan Assessment/Plan Assessment and Recs: # Failure to thrive - decreased bmi and low protein --> have ordered for cea level is 2, ca15.3 is 15, ca 19-9 is 15 --> will also obtain q3d caloric counts --> have ordered for cea, other tumor markers as well --> may consider mirtazapine as appetite stimulant # Iron deficiency anemia, hgb stable 10-12 range --> okay to continue po ferrous sulfate --> hgb currently 11.9 # Uncontrolled hypertension --> currently improved --> cards eval prn basis, antihtn started # Hyponatremia - on ivf, 3% nacl as per renal --> appreciate renal recs # Hyperlipidemia, leg edema, GERD The timing of this note does not necessarily reflect the time of the patient was seen. Greatly appreciate consultation! Subjective Gastrointestinal/Abdominal: Denies: no symptoms, abdomen distended, abdominal pain, black stools, tarry stools, blood in stool, constipated, diarrhea, difficulty swallowing, nausea, poor appetite, poor fluid intake, rectal bleeding , vomiting, other Genitourinary: Denies: no symptoms, burning, discharge, frequency, flank pain, hematuria, incontinence, pain, urgency, other Neurologic/Psychiatric: Denies: no symptoms, anxiety, depressed, emotional problems, headache, numbness, paresthesia, pre-existing deficit, seizure, tingling, tremors, weakness, other Endocrine: Denies: no symptoms, excessive sweating, flushing, intolerance to cold, intolerance to heat, increased hunger, increased thirst, increased urine, unexplained weight gain, unexplained weight loss, other Hematologic/Lymphatic: Denies: no symptoms, anemia, easy bleeding, easy bruising, other Allergies: Coded Allergies: No Known Allergies (Unverified , 07/01/18) Subjective 07/03: no events to report, no fevers, bp much better 07/06: hgb has improved, no f/c, seen by surgeon Objective Last 24 Hour Vital Signs Date Time Temp Pulse Resp B/P (MAP) Pulse Ox O2 Delivery O2 Flow Rate FiO2 07/06/18 16:00 97.6 72 18 123/74 (90) 96 07/06/18 13:33 129/68 07/06/18 12:00 97.7 72 18 116/76 (89) 98 07/06/18 09:00 Room Air 07/06/18 08:40 78 131/72 07/06/18 08:40 78 131/72 07/06/18 08:00 98.4 78 18 131/72 (91) 97 07/06/18 05:43 127/67 07/06/18 04:00 97.5 77 18 129/71 (90) 98 07/06/18 00:00 98.0 70 16 107/57 (74) 96 07/05/18 22:21 120/75 07/05/18 21:00 Room Air 07/05/18 21:00 71 126/71 07/05/18 20:00 98.0 71 20 126/71 (89) 96 Intake and Output 07/05/18 07/06/18 19:00 07:00 Intake Total 1040 ml 840 ml Output Total 750 ml 1400 ml Balance 290 ml -560 ml Intake Oral 200 ml IV Total 840 ml 840 ml Output Urine Total 750 ml 1400 ml # Voids 3 3 # Bowel Movements 5 3 Laboratory Tests 07/06/18 05:36: White Blood Count 4.9, Red Blood Count 3.95L, Hemoglobin 11.9L, Hematocrit 35.5L , Mean Corpuscular Volume 90, Mean Corpuscular Hemoglobin 30.0, Mean Corpuscular Hemoglobin Concent 33.4, Red Cell Distribution Width 13.3, Platelet Count 194, Mean Platelet Volume 6.4L, Neutrophils (%) (Auto) 59.1, Lymphocytes ( %) (Auto) 19.6L, Monocytes (%) (Auto) 17.5H, Eosinophils (%) (Auto) 3.3H, Basophils (%) (Auto) 0.6, Sodium Level 135L, Potassium Level 3.8, Chloride Level 102, Carbon Dioxide Level 21, Anion Gap 12, Blood Urea Nitrogen 9, Creatinine 1.0, Estimat Glomerular Filtration Rate > 60, Glucose Level 95, Calcium Level 8.3L Height (Feet): 6 Height (Inches): 2.00 Weight (Pounds): 89 Objective PE: Vitals: reviewed, weak cachectic, fatigued General Appearance: NAD HEENT: normocephalic, atraumatic Neck: non-tender, normal alignment Respiratory/Chest: nromal breath sounds bilaterally Cardiovascular/Chest: normal peripheral pulses, normal rate Abdomen: normal bowel sounds, soft, nontender Extremities: normal range of motion Pj Irene MD Jul 06, 2018 19:37
[2018-07-06 20:00] VITALS: BP 120/67
[2018-07-06] MEDS: Pantoprazole Inj IVP SCH (21:54)
--- NOTE | 2018-07-06 23:34 | Cardiology Progress Note ---
Assessment/Plan Assessment/Plan 1. Accelerated hypertension, well controlled BP, continue carvedilol and hydralazine. 2. History of congestive heart failure, not clinically in heart failure, 2D echocardiography reveals normal LV systolic function with mild LV diastolic function and normal intracardiac filling pressure. 3. Hyponatremia, resolved, could be secondary to diuretics. Subjective Subjective Denies chest pain or SOB. No cardiac events noted. Objective Last 24 Hour Vital Signs Date Time Temp Pulse Resp B/P (MAP) Pulse Ox O2 Delivery O2 Flow Rate FiO2 07/06/18 22:10 123/73 07/06/18 20:22 68 120/67 07/06/18 20:00 98.4 68 18 120/67 (84) 96 07/06/18 16:00 97.6 72 18 123/74 (90) 96 07/06/18 13:33 129/68 07/06/18 12:00 97.7 72 18 116/76 (89) 98 07/06/18 09:00 Room Air 07/06/18 08:40 78 131/72 07/06/18 08:40 78 131/72 07/06/18 08:00 98.4 78 18 131/72 (91) 97 07/06/18 05:43 127/67 07/06/18 04:00 97.5 77 18 129/71 (90) 98 07/06/18 00:00 98.0 70 16 107/57 (74) 96 Intake and Output 07/05/18 07/06/18 19:00 07:00 Intake Total 1040 ml 840 ml Output Total 750 ml 1400 ml Balance 290 ml -560 ml Intake Oral 200 ml IV Total 840 ml 840 ml Output Urine Total 750 ml 1400 ml # Voids 3 3 # Bowel Movements 5 3 2D Echo: EF 60%, Mod LVH, Mod AR, Grade I LVDD, RVSP 11 mmHg Laboratory Tests Test 07/06/18 05:36 White Blood Count 4.9 K/UL (4.8-10.8) Red Blood Count 3.95 M/UL (4.70-6.10) L Hemoglobin 11.9 G/DL (14.2-18.0) L Hematocrit 35.5 % (42.0-52.0) L Mean Corpuscular Volume 90 FL (80-99) Mean Corpuscular Hemoglobin 30.0 PG (27.0-31.0) Mean Corpuscular Hemoglobin Concent 33.4 G/DL (32.0-36.0) Red Cell Distribution Width 13.3 % (11.6-14.8) Platelet Count 194 K/UL (150-450) Mean Platelet Volume 6.4 FL (6.5-10.1) L Neutrophils (%) (Auto) 59.1 % (45.0-75.0) Lymphocytes (%) (Auto) 19.6 % (20.0-45.0) L Monocytes (%) (Auto) 17.5 % (1.0-10.0) H Eosinophils (%) (Auto) 3.3 % (0.0-3.0) H Basophils (%) (Auto) 0.6 % (0.0-2.0) Sodium Level 135 MMOL/L (136-145) L Potassium Level 3.8 MMOL/L (3.5-5.1) Chloride Level 102 MMOL/L (98-107) Carbon Dioxide Level 21 MMOL/L (21-32) Anion Gap 12 mmol/L (5-15) Blood Urea Nitrogen 9 mg/dL (7-18) Creatinine 1.0 MG/DL (0.55-1.30) Estimat Glomerular Filtration Rate > 60 mL/min (>60) Glucose Level 95 MG/DL (74-106) Calcium Level 8.3 MG/DL (8.5-10.1) L Objective HEENT: Atraumatic, normocephalic. Anicteric. Pupils are equal, round, and reactive to light and accommodation. Extraocular muscles intact. NECK: JVP less than 5 cm. No carotid bruit. Carotid upstroke is 2+ bilaterally. CARDIOVASCULAR: Normal S1, S2. Regular rate and rhythm. No murmurs, gallops, or rubs. PMI is at fourth intercostal space in the midclavicular line. LUNGS: Clear to auscultation bilaterally. ABDOMEN: Soft, nontender, nondistended. No hepatosplenomegaly. Positive bowel sounds. EXTREMITIES: No evidence of edema, clubbing, or cyanosis. Reece Remy MD Jul 06, 2018 23:34
[2018-07-07] VITALS: BP 123/73
[2018-07-07 04:00] VITALS: BP 135/77
[2018-07-07] MEDS: HydrALAZINE 50mg tab ORAL SCH ×3 (05:08→22:19)
--- NOTE | 2018-07-07 07:16 | NUR ---
HAND-OFF: Report given to Verónica CASTRO R.N.
--- NOTE | 2018-07-07 07:16 | NUR ---
NURSE NOTES: Received report from MARIA R Ansari. Patient a/o x4 aleep. SCD on and IV fluid running. Bed in lowest position, call light within reach. Will continue to monitor.
[2018-07-07 07:59] LABS: BASOPHILS % (AUTO) 1.5 % (0.0-2.0); EOSINOPHILS % (AUTO) 3.5 % (0.0-3.0); HEMATOCRIT 35.4 % (42.0-52.0); HEMOGLOBIN 11.9 G/DL (14.2-18.0); LYMPHOCYTES % (AUTO) 22.8 % (20.0-45.0); MEAN CORPUSCULAR VOLUME 89 FL (80-99); MONOCYTES % (AUTO) 16.3 % (1.0-10.0); NEUTROPHILS % (AUTO) 55.9 % (45.0-75.0); PLATELET COUNT 203 K/UL (150-450); RED BLOOD COUNT 3.96 M/UL (4.70-6.10); RED CELL DISTRIBUTION WIDTH 13.1 % (11.6-14.8); WHITE BLOOD COUNT 5.1 K/UL (4.8-10.8)
[2018-07-07 08:00] VITALS: BP 141/75
[2018-07-07 08:31] LABS: ANION GAP 11 mmol/L (5-15); BLOOD UREA NITROGEN 4 mg/dL (7-18); CALCIUM 8.7 MG/DL (8.5-10.1); CARBON DIOXIDE 22 MMOL/L (21-32); CHLORIDE 100 MMOL/L (98-107); CREATININE 0.9 MG/DL (0.55-1.30); POTASSIUM 3.7 MMOL/L (3.5-5.1); SODIUM 133 MMOL/L (136-145)
[2018-07-07] MEDS: Carvedilol 25mg Tab ORAL SCH ×2 (09:23→20:49)
[2018-07-07] MEDS: Atorvastatin 20mg tab ORAL SCH (09:23)
[2018-07-07] MEDS: Pantoprazole Inj IVP SCH ×2 (09:23→21:06)
--- NOTE | 2018-07-07 10:25 | NUR ---
CASE MANAGEMENT:REVIEW 07/07/18 SI: UNCONTROLLED HTN.ILEUS 97.6 68 18 141/75 98% ON RA H/H-11.9/35.4 NA-133 IS: IV PROTONIX Q12 IVF@50/HR HYDRALAZINE PO Q8HRS COREG PO Q12 : MED/SURG STATUS 3 EAST DCP: FROM [facility] [place] PLAN: GI CONTRAST STUDY TODAY
--- NOTE | 2018-07-07 10:55 | NUR ---
NURSE NOTES: Patient off the unit for x-ray small bowel w/ gastrografin. Patient in stable condition.
--- NOTE | 2018-07-07 11:37 | GI Progress Note ---
Assessment/Plan Problems: (1) Uncontrolled hypertension ICD Codes: I10 - Essential (primary) hypertension SNOMED: 78209405, 91956625 (2) Hyponatremia ICD Codes: E87.1 - Hypo-osmolality and hyponatremia SNOMED: 27595914 (3) Small bowel obstruction ICD Codes: K56.609 - Unspecified intestinal obstruction, unspecified as to partial versus complete obstruction SNOMED: 493596194 (4) Ileus ICD Codes: K56.7 - Ileus, unspecified SNOMED: 275317716 (5) Abdominal pain ICD Codes: R10.9 - Unspecified abdominal pain SNOMED: 79800551 (6) Abdominal distension ICD Codes: R14.0 - Abdominal distension (gaseous) SNOMED: 17157636 Status: stable, progressing Status Narrative Discussed with Dr. Royal Assessment/Plan Assessment - SB and Colonic dilation on CT, ? ileus or functional - resolving - HTN - Azotemia - Hyponatremia Recommendations Small bowel follow-through today Follow-up surgical recommendations Patient tolerated clear liquid diet Correct electrolytes zofran prn follow labs The patient was seen and examined at bedside and all new and available data was reviewed in the patients chart. I agree with the above findings, impression and plan. (Patient seen earlier today. Signature stamp does not reflect patient encounter time.). - Avery Royal MD Subjective Gastrointestinal/Abdominal: Reports: no symptoms Subjective Had large bowel movement this morning Tolerating clears Objective Last 24 Hour Vital Signs Date Time Temp Pulse Resp B/P (MAP) Pulse Ox O2 Delivery O2 Flow Rate FiO2 07/07/18 09:23 68 141/75 07/07/18 09:00 Room Air 07/07/18 08:00 97.6 68 18 141/75 (97) 98 07/07/18 05:08 135/66 07/07/18 04:00 97.2 72 18 135/77 (96) 98 07/07/18 00:00 98.0 69 18 123/73 (90) 98 07/06/18 22:10 123/73 07/06/18 21:00 Room Air 07/06/18 20:22 68 120/67 07/06/18 20:00 98.4 68 18 120/67 (84) 96 07/06/18 16:00 97.6 72 18 123/74 (90) 96 07/06/18 13:33 129/68 07/06/18 12:00 97.7 72 18 116/76 (89) 98 Intake and Output 07/06/18 07/07/18 19:00 07:00 Intake Total 1222 ml 1460 ml Output Total 1750 ml 800 ml Balance -528 ml 660 ml Intake Oral 722 ml 910 ml IV Total 500 ml 550 ml Output Urine Total 1750 ml 800 ml # Voids 3 # Bowel Movements 2 2 Laboratory Tests Test 07/07/18 05:22 White Blood Count 5.1 K/UL (4.8-10.8) Red Blood Count 3.96 M/UL (4.70-6.10) L Hemoglobin 11.9 G/DL (14.2-18.0) L Hematocrit 35.4 % (42.0-52.0) L Mean Corpuscular Volume 89 FL (80-99) Mean Corpuscular Hemoglobin 30.1 PG (27.0-31.0) Mean Corpuscular Hemoglobin Concent 33.7 G/DL (32.0-36.0) Red Cell Distribution Width 13.1 % (11.6-14.8) Platelet Count 203 K/UL (150-450) Mean Platelet Volume 5.9 FL (6.5-10.1) L Neutrophils (%) (Auto) 55.9 % (45.0-75.0) Lymphocytes (%) (Auto) 22.8 % (20.0-45.0) Monocytes (%) (Auto) 16.3 % (1.0-10.0) H Eosinophils (%) (Auto) 3.5 % (0.0-3.0) H Basophils (%) (Auto) 1.5 % (0.0-2.0) Sodium Level 133 MMOL/L (136-145) L Potassium Level 3.7 MMOL/L (3.5-5.1) Chloride Level 100 MMOL/L (98-107) Carbon Dioxide Level 22 MMOL/L (21-32) Anion Gap 11 mmol/L (5-15) Blood Urea Nitrogen 4 mg/dL (7-18) L Creatinine 0.9 MG/DL (0.55-1.30) Estimat Glomerular Filtration Rate > 60 mL/min (>60) Glucose Level 89 MG/DL (74-106) Calcium Level 8.7 MG/DL (8.5-10.1) Height (Feet): 6 Height (Inches): 2.00 Weight (Pounds): 89 General Appearance: WD/WN, no apparent distress, alert Cardiovascular: normal rate Respiratory/Chest: normal breath sounds, no respiratory distress Abdominal Exam: normal bowel sounds, non tender, soft Extremities: normal range of motion, non-tender Jayla Varela NP Jul 07, 2018 11:37
--- NOTE | 2018-07-07 11:50 | Nephrology Progress Note ---
Assessment/Plan Problem List: (1) Uncontrolled hypertension (2) Hyponatremia (3) Ileus (4) Small bowel obstruction Assessment Hypertensive Urgency Low Na likely depletional CHF Chronic pain Plan NPO Adjust BP meds Rearrange meds per orders CXR 2D Echo noted due abd CT monitor Na Subjective ROS Limited/Unobtainable: No Objective Objective Last 24 Hour Vital Signs Date Time Temp Pulse Resp B/P (MAP) Pulse Ox O2 Delivery O2 Flow Rate FiO2 07/07/18 09:23 68 141/75 07/07/18 09:00 Room Air 07/07/18 08:00 97.6 68 18 141/75 (97) 98 07/07/18 05:08 135/66 07/07/18 04:00 97.2 72 18 135/77 (96) 98 07/07/18 00:00 98.0 69 18 123/73 (90) 98 07/06/18 22:10 123/73 07/06/18 21:00 Room Air 07/06/18 20:22 68 120/67 07/06/18 20:00 98.4 68 18 120/67 (84) 96 07/06/18 16:00 97.6 72 18 123/74 (90) 96 07/06/18 13:33 129/68 07/06/18 12:00 97.7 72 18 116/76 (89) 98 Intake and Output 07/06/18 07/07/18 19:00 07:00 Intake Total 1222 ml 1460 ml Output Total 1750 ml 800 ml Balance -528 ml 660 ml Intake Oral 722 ml 910 ml IV Total 500 ml 550 ml Output Urine Total 1750 ml 800 ml # Voids 3 # Bowel Movements 2 2 Laboratory Tests 07/07/18 05:22: White Blood Count 5.1, Red Blood Count 3.96L, Hemoglobin 11.9L, Hematocrit 35.4L , Mean Corpuscular Volume 89, Mean Corpuscular Hemoglobin 30.1, Mean Corpuscular Hemoglobin Concent 33.7, Red Cell Distribution Width 13.1, Platelet Count 203, Mean Platelet Volume 5.9L, Neutrophils (%) (Auto) 55.9, Lymphocytes ( %) (Auto) 22.8, Monocytes (%) (Auto) 16.3H, Eosinophils (%) (Auto) 3.5H, Basophils (%) (Auto) 1.5, Sodium Level 133L, Potassium Level 3.7, Chloride Level 100, Carbon Dioxide Level 22, Anion Gap 11, Blood Urea Nitrogen 4L, Creatinine 0.9, Estimat Glomerular Filtration Rate > 60, Glucose Level 89, Calcium Level 8.7 Height (Feet): 6 Height (Inches): 2.00 Weight (Pounds): 89 General Appearance: no apparent distress Cardiovascular: normal rate Respiratory/Chest: decreased breath sounds Abdomen: soft, distended Objective no change Edy Sapp MD Jul 07, 2018 11:50
--- NOTE | 2018-07-07 12:25 | NUR ---
NURSE NOTES: Patient came back from x-ray. Patient in stable condition.
[2018-07-07 13:20] VITALS: BP 141/87
--- NOTE | 2018-07-07 14:38 | Surgery Progress Note ---
Surgery Progress Note Subjective Additional Comments pending completion of GI contrast study. Objective Last 24 Hour Vital Signs Date Time Temp Pulse Resp B/P (MAP) Pulse Ox O2 Delivery O2 Flow Rate FiO2 07/07/18 13:34 141/87 07/07/18 13:20 97.8 71 18 141/87 (105) 99 07/07/18 09:23 68 141/75 07/07/18 09:00 Room Air 07/07/18 08:00 97.6 68 18 141/75 (97) 98 07/07/18 05:08 135/66 07/07/18 04:00 97.2 72 18 135/77 (96) 98 07/07/18 00:00 98.0 69 18 123/73 (90) 98 07/06/18 22:10 123/73 07/06/18 21:00 Room Air 07/06/18 20:22 68 120/67 07/06/18 20:00 98.4 68 18 120/67 (84) 96 07/06/18 16:00 97.6 72 18 123/74 (90) 96 I&O Intake and Output 07/06/18 07/07/18 19:00 07:00 Intake Total 1222 ml 1460 ml Output Total 1750 ml 800 ml Balance -528 ml 660 ml Intake Oral 722 ml 910 ml IV Total 500 ml 550 ml Output Urine Total 1750 ml 800 ml # Voids 3 # Bowel Movements 2 2 Laboratory Tests Test 07/07/18 05:22 White Blood Count 5.1 K/UL (4.8-10.8) Red Blood Count 3.96 M/UL (4.70-6.10) L Hemoglobin 11.9 G/DL (14.2-18.0) L Hematocrit 35.4 % (42.0-52.0) L Mean Corpuscular Volume 89 FL (80-99) Mean Corpuscular Hemoglobin 30.1 PG (27.0-31.0) Mean Corpuscular Hemoglobin Concent 33.7 G/DL (32.0-36.0) Red Cell Distribution Width 13.1 % (11.6-14.8) Platelet Count 203 K/UL (150-450) Mean Platelet Volume 5.9 FL (6.5-10.1) L Neutrophils (%) (Auto) 55.9 % (45.0-75.0) Lymphocytes (%) (Auto) 22.8 % (20.0-45.0) Monocytes (%) (Auto) 16.3 % (1.0-10.0) H Eosinophils (%) (Auto) 3.5 % (0.0-3.0) H Basophils (%) (Auto) 1.5 % (0.0-2.0) Sodium Level 133 MMOL/L (136-145) L Potassium Level 3.7 MMOL/L (3.5-5.1) Chloride Level 100 MMOL/L (98-107) Carbon Dioxide Level 22 MMOL/L (21-32) Anion Gap 11 mmol/L (5-15) Blood Urea Nitrogen 4 mg/dL (7-18) L Creatinine 0.9 MG/DL (0.55-1.30) Estimat Glomerular Filtration Rate > 60 mL/min (>60) Glucose Level 89 MG/DL (74-106) Calcium Level 8.7 MG/DL (8.5-10.1) Plan Problems: (1) Uncontrolled hypertension (2) Hyponatremia (3) Abdominal distension Assessment & Plan: CT noted - mpression: Diffusely massively dilated fluid- filled small bowel with nondilated distal ileum. Borderline dilated fluid- filled proximal colon, with nondilated distal colon. Pattern is somewhat unusual. Finding of massively dilated small bowel with the distal transition raises concern for distal small bowel obstruction. There may also be concomitant obstruction of the distal transverse colon. Evidence of tapering and slightly swirled mesentery in the right lower quadrant mesenteric root raises the possibility of an internal hernia. However, transition point of the transverse colon is remote from the small bowel transition point, so other etiologies should be considered. Other possibilities include separate small bowel and colon obstruction secondary to adhesions in 2 different locations. Findings could also be functional in nature. Consider follow-up radiographs to assess for transit of contrast and correlation with clinical findings. today multiple BM's abd exam benign now. soft, minimal distention, non tender resolving tolerating clears KUB noted. clinically improved will follow with gi contrast study tomorrow IV fluids will follow with recs thank you (4) Abdominal pain Donnie Weinberg Jul 07, 2018 14:38
[2018-07-07 16:00] VITALS: BP 150/88
--- NOTE | 2018-07-07 17:23 | NUR ---
HAND-OFF: Report given to RAMESH Elkins. Patient in stable condition.
--- NOTE | 2018-07-07 17:30 | Diagnostic Imaging Report ---
Indication: Abdominal distention, suspected small bowel obstruction on prior CT scan Technique: Patient ingested water-soluble contrast orally. Serial overhead images obtained. Comparison: Insole Tack Puller Hand film compared with abdominal radiograph dated 07/06/2018 Findings: Previously demonstrated retained colonic contrast is no longer evident. Again demonstrated are dilated gas-filled central and left upper quadrant small bowel loops. There are hernia mesh anchors in the right lower quadrant again and central pelvis again demonstrated. After ingestion of contrast, there is rapid transit of contrast. Contrast has traversed much of the small bowel at 15 minutes, and is seen within much of the colon at 30 minutes, completely through the colon to the distal rectum at one hour. On the initial postcontrast images, the caliber of the small bowel loops is somewhat dilated, but the caliber appears to be more normalized on the later images. Impression: Brisk transit of contrast through the small bowel, indicating absence of small bowel obstruction. Dilatation demonstrated on prior imaging likely functional in nature
--- NOTE | 2018-07-07 17:54 | NUR ---
NURSE NOTES: received pt from [facility] assisted with IV . Per request of pt IV taped upward. No signs of infiltration Iv patent and functioning
--- NOTE | 2018-07-07 18:23 | General Progress Note ---
Assessment/Plan Assessment/Plan Assessment and Recs: # Failure to thrive - decreased bmi and low protein --> have ordered for cea level is 2, ca15.3 is 15, ca 19-9 is 15 --> will also obtain q3d caloric counts --> may consider mirtazapine as appetite stimulant --> xray reveals no significant sbo # Iron deficiency anemia, hgb stable 10-12 range --> okay to continue po ferrous sulfate --> hgb currently 11.9 # Uncontrolled hypertension --> currently improved --> cards eval prn basis, antihtn started # Hyponatremia - on ivf, 3% nacl as per renal --> appreciate renal recs # Hyperlipidemia, leg edema, GERD The timing of this note does not necessarily reflect the time of the patient was seen. Greatly appreciate consultation! Subjective Allergies: Coded Allergies: No Known Allergies (Unverified , 07/01/18) Subjective 07/03: no events to report, no fevers, bp much better 07/06: hgb has improved, no f/c, seen by surgeon 07/07: tolreated xray small bowel contrast well Objective Last 24 Hour Vital Signs Date Time Temp Pulse Resp B/P (MAP) Pulse Ox O2 Delivery O2 Flow Rate FiO2 07/07/18 16:00 98.7 79 18 150/88 (108) 98 07/07/18 13:34 141/87 07/07/18 13:20 97.8 71 18 141/87 (105) 99 07/07/18 09:23 68 141/75 07/07/18 09:00 Room Air 07/07/18 08:00 97.6 68 18 141/75 (97) 98 07/07/18 05:08 135/66 07/07/18 04:00 97.2 72 18 135/77 (96) 98 07/07/18 00:00 98.0 69 18 123/73 (90) 98 07/06/18 22:10 123/73 07/06/18 21:00 Room Air 07/06/18 20:22 68 120/67 07/06/18 20:00 98.4 68 18 120/67 (84) 96 Intake and Output 07/06/18 07/07/18 18:59 06:59 Intake Total 1222 ml 1510 ml Output Total 1750 ml 800 ml Balance -528 ml 710 ml Intake Oral 722 ml 910 ml IV Total 500 ml 600 ml Output Urine Total 1750 ml 800 ml # Voids 3 # Bowel Movements 2 2 Laboratory Tests 07/07/18 05:22: White Blood Count 5.1, Red Blood Count 3.96L, Hemoglobin 11.9L, Hematocrit 35.4L , Mean Corpuscular Volume 89, Mean Corpuscular Hemoglobin 30.1, Mean Corpuscular Hemoglobin Concent 33.7, Red Cell Distribution Width 13.1, Platelet Count 203, Mean Platelet Volume 5.9L, Neutrophils (%) (Auto) 55.9, Lymphocytes ( %) (Auto) 22.8, Monocytes (%) (Auto) 16.3H, Eosinophils (%) (Auto) 3.5H, Basophils (%) (Auto) 1.5, Sodium Level 133L, Potassium Level 3.7, Chloride Level 100, Carbon Dioxide Level 22, Anion Gap 11, Blood Urea Nitrogen 4L, Creatinine 0.9, Estimat Glomerular Filtration Rate > 60, Glucose Level 89, Calcium Level 8.7 Height (Feet): 6 Height (Inches): 2.00 Weight (Pounds): 89 Objective PE: Vitals: reviewed, weak cachectic, fatigued General Appearance: NAD HEENT: normocephalic, atraumatic Neck: non-tender, normal alignment Respiratory/Chest: nromal breath sounds bilaterally Cardiovascular/Chest: normal peripheral pulses, normal rate Abdomen: normal bowel sounds, soft, nontender Extremities: normal range of motion Pj Irene MD Jul 07, 2018 18:23
--- NOTE | 2018-07-07 19:31 | NUR ---
NURSE NOTES: Pt is awake has pending labs for tomorrow. Call light is in reach bed is in safe position
--- NOTE | 2018-07-07 19:32 | NUR ---
HAND-OFF: Report given to Coty CHANDLER.
[2018-07-07 20:00] VITALS: BP 153/97
--- NOTE | 2018-07-07 21:42 | General Progress Note ---
Assessment/Plan Problem List: (1) Uncontrolled hypertension ICD Codes: I10 - Essential (primary) hypertension SNOMED: 88326737, 80134555 Status: progressing Assessment/Plan agree w surgeon and gi re distented abdomen htn dc planning reviewed chart Subjective ROS Limited/Unobtainable: Yes Allergies: Coded Allergies: No Known Allergies (Unverified , 07/01/18) Objective Last 24 Hour Vital Signs Date Time Temp Pulse Resp B/P (MAP) Pulse Ox O2 Delivery O2 Flow Rate FiO2 07/07/18 20:49 73 153/97 07/07/18 16:00 98.7 79 18 150/88 (108) 98 07/07/18 13:34 141/87 07/07/18 13:20 97.8 71 18 141/87 (105) 99 07/07/18 09:23 68 141/75 07/07/18 09:00 Room Air 07/07/18 08:00 97.6 68 18 141/75 (97) 98 07/07/18 05:08 135/66 07/07/18 04:00 97.2 72 18 135/77 (96) 98 07/07/18 00:00 98.0 69 18 123/73 (90) 98 07/06/18 22:10 123/73 Intake and Output 07/06/18 07/07/18 18:59 06:59 Intake Total 1222 ml 1510 ml Output Total 1750 ml 800 ml Balance -528 ml 710 ml Intake Oral 722 ml 910 ml IV Total 500 ml 600 ml Output Urine Total 1750 ml 800 ml # Voids 3 # Bowel Movements 2 2 Laboratory Tests 07/07/18 05:22: White Blood Count 5.1, Red Blood Count 3.96L, Hemoglobin 11.9L, Hematocrit 35.4L , Mean Corpuscular Volume 89, Mean Corpuscular Hemoglobin 30.1, Mean Corpuscular Hemoglobin Concent 33.7, Red Cell Distribution Width 13.1, Platelet Count 203, Mean Platelet Volume 5.9L, Neutrophils (%) (Auto) 55.9, Lymphocytes ( %) (Auto) 22.8, Monocytes (%) (Auto) 16.3H, Eosinophils (%) (Auto) 3.5H, Basophils (%) (Auto) 1.5, Sodium Level 133L, Potassium Level 3.7, Chloride Level 100, Carbon Dioxide Level 22, Anion Gap 11, Blood Urea Nitrogen 4L, Creatinine 0.9, Estimat Glomerular Filtration Rate > 60, Glucose Level 89, Calcium Level 8.7 Height (Feet): 6 Height (Inches): 2.00 Weight (Pounds): 89 Neck: supple Cardiovascular: normal rate Respiratory/Chest: lungs clear Isabel Bassett MD Jul 07, 2018 21:42
[2018-07-08] VITALS (9 sets, daily range): BP systolic 155–219; BP diastolic 88–103
[2018-07-08] MEDS: HydrALAZINE 50mg tab ORAL SCH ×3 (05:10→21:19)
[2018-07-08 06:51] LABS: BASOPHILS % (AUTO) 0.9 % (0.0-2.0); EOSINOPHILS % (AUTO) 4.2 % (0.0-3.0); HEMATOCRIT 33.8 % (42.0-52.0); HEMOGLOBIN 11.2 G/DL (14.2-18.0); LYMPHOCYTES % (AUTO) 31.1 % (20.0-45.0); MEAN CORPUSCULAR VOLUME 90 FL (80-99); MONOCYTES % (AUTO) 17.4 % (1.0-10.0); NEUTROPHILS % (AUTO) 46.5 % (45.0-75.0); PLATELET COUNT 209 K/UL (150-450); RED BLOOD COUNT 3.77 M/UL (4.70-6.10); RED CELL DISTRIBUTION WIDTH 13.2 % (11.6-14.8); WHITE BLOOD COUNT 4.7 K/UL (4.8-10.8)
[2018-07-08 06:59] LABS: ANION GAP 11 mmol/L (5-15); BLOOD UREA NITROGEN 3 mg/dL (7-18); CALCIUM 8.7 MG/DL (8.5-10.1); CARBON DIOXIDE 21 MMOL/L (21-32); CHLORIDE 100 MMOL/L (98-107); CREATININE 1.1 MG/DL (0.55-1.30); POTASSIUM 3.8 MMOL/L (3.5-5.1); SODIUM 132 MMOL/L (136-145)
--- NOTE | 2018-07-08 07:20 | NUR ---
HAND-OFF: Report given to MARLENI Kaplan Patient in stable condition..
--- NOTE | 2018-07-08 07:36 | NUR ---
NURSE NOTES: Received pt with stable condition. pt denies any pain at this time. Breathing regular and unlabored. bed in lowest position. call light within reach at all time. will continue to monitor
[2018-07-08] MEDS: Carvedilol 25mg Tab ORAL SCH ×2 (08:03→21:20)
[2018-07-08] MEDS: Pantoprazole Inj IVP SCH (08:03)
[2018-07-08] MEDS: Atorvastatin 20mg tab ORAL SCH (08:03)
--- NOTE | 2018-07-08 08:36 | General Progress Note ---
Assessment/Plan Problem List: (1) Abdominal distension ICD Codes: R14.0 - Abdominal distension (gaseous) SNOMED: 03399067 (2) Abdominal pain ICD Codes: R10.9 - Unspecified abdominal pain SNOMED: 66498439 (3) Ileus ICD Codes: K56.7 - Ileus, unspecified SNOMED: 102372718 (4) Small bowel obstruction ICD Codes: K56.609 - Unspecified intestinal obstruction, unspecified as to partial versus complete obstruction SNOMED: 868960049 (5) Hyponatremia ICD Codes: E87.1 - Hypo-osmolality and hyponatremia SNOMED: 66055554 (6) Uncontrolled hypertension ICD Codes: I10 - Essential (primary) hypertension SNOMED: 12610660, 75093541 Assessment/Plan neg SBFT advance diet ok to dc Subjective ROS Limited/Unobtainable: Yes Allergies: Coded Allergies: No Known Allergies (Unverified , 07/01/18) Objective Last 24 Hour Vital Signs Date Time Temp Pulse Resp B/P (MAP) Pulse Ox O2 Delivery O2 Flow Rate FiO2 07/08/18 08:03 74 167/98 07/08/18 08:00 98.1 74 18 167/98 (121) 99 07/08/18 06:00 98.0 70 18 155/88 (110) 99 07/08/18 05:10 170/97 07/08/18 05:00 97.3 68 20 170/97 (121) 100 07/08/18 04:00 97.3 68 20 158/94 (115) 99 07/08/18 00:00 98.0 77 20 157/93 (114) 99 07/07/18 22:19 157/93 07/07/18 21:00 Room Air 07/07/18 20:49 73 153/97 07/07/18 20:00 97.3 73 18 153/97 (115) 99 07/07/18 16:00 98.7 79 18 150/88 (108) 98 07/07/18 13:34 141/87 07/07/18 13:20 97.8 71 18 141/87 (105) 99 07/07/18 09:23 68 141/75 07/07/18 09:00 Room Air Intake and Output 07/07/18 07/08/18 19:00 07:00 Intake Total 1440 ml 1530 ml Output Total 150 ml 550 ml Balance 1290 ml 980 ml Intake Oral 1040 ml 980 ml IV Total 400 ml 550 ml Output Urine Total 150 ml 550 ml # Voids 3 4 # Bowel Movements 3 2 Laboratory Tests 07/08/18 05:00: White Blood Count 4.7L, Red Blood Count 3.77L, Hemoglobin 11.2L, Hematocrit 33.8L, Mean Corpuscular Volume 90, Mean Corpuscular Hemoglobin 29.8, Mean Corpuscular Hemoglobin Concent 33.2, Red Cell Distribution Width 13.2, Platelet Count 209, Mean Platelet Volume 5.6L, Neutrophils (%) (Auto) 46.5, Lymphocytes ( %) (Auto) 31.1, Monocytes (%) (Auto) 17.4H, Eosinophils (%) (Auto) 4.2H, Basophils (%) (Auto) 0.9, Sodium Level 132L, Potassium Level 3.8, Chloride Level 100, Carbon Dioxide Level 21, Anion Gap 11, Blood Urea Nitrogen 3L, Creatinine 1.1, Estimat Glomerular Filtration Rate > 60, Glucose Level 94, Calcium Level 8.7 Height (Feet): 6 Height (Inches): 2.00 Weight (Pounds): 89 General Appearance: alert EENT: normal ENT inspection, TMs normal Neck: supple Cardiovascular: normal rate Respiratory/Chest: lungs clear Abdomen: normal bowel sounds, non tender, soft Extremities: non-tender Avery Royal MD Jul 08, 2018 08:36
--- NOTE | 2018-07-08 11:21 | Nephrology Progress Note ---
Assessment/Plan Problem List: (1) Uncontrolled hypertension (2) Hyponatremia Assessment: 132 (3) Ileus (4) Small bowel obstruction Assessment Hypertensive Urgency Low Na likely depletional CHF Chronic pain Plan taking PO well Adjust BP meds Rearrange meds per orders CXR 2D Echo noted ? DC Subjective ROS Limited/Unobtainable: No Objective Objective Last 24 Hour Vital Signs Date Time Temp Pulse Resp B/P (MAP) Pulse Ox O2 Delivery O2 Flow Rate FiO2 07/08/18 09:12 Room Air 07/08/18 08:03 74 167/98 07/08/18 08:00 98.1 74 18 167/98 (121) 99 07/08/18 06:00 98.0 70 18 155/88 (110) 99 07/08/18 05:10 170/97 07/08/18 05:00 97.3 68 20 170/97 (121) 100 07/08/18 04:00 97.3 68 20 158/94 (115) 99 07/08/18 00:00 98.0 77 20 157/93 (114) 99 07/07/18 22:19 157/93 07/07/18 21:00 Room Air 07/07/18 20:49 73 153/97 07/07/18 20:00 97.3 73 18 153/97 (115) 99 07/07/18 16:00 98.7 79 18 150/88 (108) 98 07/07/18 13:34 141/87 07/07/18 13:20 97.8 71 18 141/87 (105) 99 Intake and Output 07/07/18 07/08/18 19:00 07:00 Intake Total 1440 ml 1530 ml Output Total 150 ml 550 ml Balance 1290 ml 980 ml Intake Oral 1040 ml 980 ml IV Total 400 ml 550 ml Output Urine Total 150 ml 550 ml # Voids 3 4 # Bowel Movements 3 2 Current Medications Medications (Trade) Dose Ordered Sig/Dayan Route PRN Reason Start Time Stop Time Status Last Admin Dose Admin Acetaminophen (Tylenol) 500 mg Q4H PRN ORAL Mild Pain/Temp > 100.5 07/03/18 14:40 08/02/18 14:39 07/05/18 17:33 Atorvastatin Calcium (Lipitor) 40 mg DAILY ORAL 07/04/18 09:00 08/01/18 08:59 07/08/18 08:03 Carvedilol (Coreg) 25 mg EVERY 12 HOURS ORAL 07/03/18 21:00 08/01/18 08:59 07/08/18 08:03 Clonidine HCl (Catapres Tab) 0.1 mg Q4H PRN ORAL SBP>160 07/03/18 14:40 08/02/18 14:39 Dextrose/ Electrolytes 1,000 ml @ 50 mls/hr Q20H IV 07/04/18 17:30 08/03/18 17:29 07/08/18 01:13 Gabapentin (Neurontin) 100 mg THREE TIMES A DAY ORAL 07/03/18 18:00 08/01/18 12:59 07/08/18 08:03 Gabapentin (Neurontin) 300 mg BEDTIME ORAL 07/03/18 21:00 08/01/18 20:59 07/07/18 20:49 Hydralazine HCl (Apresoline) 100 mg Q8HR ORAL 07/03/18 22:00 08/01/18 05:59 07/08/18 05:10 Hydromorphone HCl (Dilaudid) 0.5 mg Q4H PRN IVP For Pain 07/06/18 13:45 07/13/18 13:44 Metoclopramide HCl (Reglan) 10 mg Q6H PRN IVP Nausea & Vomiting 07/06/18 13:40 08/05/18 13:39 Pantoprazole (Protonix) 40 mg EVERY 12 HOURS IVP 07/06/18 21:00 08/05/18 20:59 07/08/18 08:03 Laboratory Tests 07/08/18 05:00: White Blood Count 4.7L, Red Blood Count 3.77L, Hemoglobin 11.2L, Hematocrit 33.8L, Mean Corpuscular Volume 90, Mean Corpuscular Hemoglobin 29.8, Mean Corpuscular Hemoglobin Concent 33.2, Red Cell Distribution Width 13.2, Platelet Count 209, Mean Platelet Volume 5.6L, Neutrophils (%) (Auto) 46.5, Lymphocytes ( %) (Auto) 31.1, Monocytes (%) (Auto) 17.4H, Eosinophils (%) (Auto) 4.2H, Basophils (%) (Auto) 0.9, Sodium Level 132L, Potassium Level 3.8, Chloride Level 100, Carbon Dioxide Level 21, Anion Gap 11, Blood Urea Nitrogen 3L, Creatinine 1.1, Estimat Glomerular Filtration Rate > 60, Glucose Level 94, Calcium Level 8.7 Height (Feet): 6 Height (Inches): 2.00 Weight (Pounds): 89 General Appearance: no apparent distress Objective no change Edy Sapp MD Jul 08, 2018 11:21
--- NOTE | 2018-07-08 13:28 | NUR ---
RD ASSESSMENT & RECOMMENDATIONS SEE CARE ACTIVITY FOR COMPLETE ASSESSMENT DAILY ESTIMATED NEEDS: Needs based on Cardiac, 72kg 25-30 kcals/kg 8113-7251 total kcals 1-1.3 g protein/kg 72-94 g total protein 20-22 mL/kg 6413-8704 total fluid mLs NUTRITION DIAGNOSIS: Altered GI function R/T possible SBO vs ileus as evidenced by c/o nausea, abdominal distention, diarrhea, now improved, on Regular diet. PO DIET RECOMMENDATIONS: LOW NA diet / Soft easy chew ADDITIONAL RECOMMENDATIONS: * Standing wt as able for accurate CBW * Monitor lytes, replete as needed * Once diet resumes-> pt requests soft easy chew texture (poor dentition)
[2018-07-08] MEDS ORDERED: HYDRALAZINE HC100 MG ORAL (13:46)
--- NOTE | 2018-07-08 14:00 | NUR ---
NURSE NOTES: pt was noted with high blood pressure 199/103 HR 73. pt denies any chest pain nor discomfort. Dr. Bassett made aware of high blood pressure. Per Dr. Bassett, call dr. Sapp for further order.
--- NOTE | 2018-07-08 14:40 | General Progress Note ---
Assessment/Plan Problem List: (1) Uncontrolled hypertension ICD Codes: I10 - Essential (primary) hypertension SNOMED: 50761630, [id number] Assessment/Plan dc if ok w dr romano bp is still elevated dr dunlap is also managing the elevated bp Subjective ROS Limited/Unobtainable: Yes Allergies: Coded Allergies: No Known Allergies (Unverified , 07/01/18) Objective Last 24 Hour Vital Signs Date Time Temp Pulse Resp B/P (MAP) Pulse Ox O2 Delivery O2 Flow Rate FiO2 07/08/18 13:21 171/99 07/08/18 13:21 171/99 07/08/18 12:00 97.5 69 18 171/99 (123) 99 07/08/18 09:12 Room Air 07/08/18 08:03 74 167/98 07/08/18 08:00 98.1 74 18 167/98 (121) 99 07/08/18 06:00 98.0 70 18 155/88 (110) 99 07/08/18 05:10 170/97 07/08/18 05:00 97.3 68 20 170/97 (121) 100 07/08/18 04:00 97.3 68 20 158/94 (115) 99 07/08/18 00:00 98.0 77 20 157/93 (114) 99 07/07/18 22:19 157/93 07/07/18 21:00 Room Air 07/07/18 20:49 73 153/97 07/07/18 20:00 97.3 73 18 153/97 (115) 99 07/07/18 16:00 98.7 79 18 150/88 (108) 98 Intake and Output 07/07/18 07/08/18 19:00 07:00 Intake Total 1440 ml 1530 ml Output Total 150 ml 550 ml Balance 1290 ml 980 ml Intake Oral 1040 ml 980 ml IV Total 400 ml 550 ml Output Urine Total 150 ml 550 ml # Voids 3 4 # Bowel Movements 3 2 Laboratory Tests 07/08/18 05:00: White Blood Count 4.7L, Red Blood Count 3.77L, Hemoglobin 11.2L, Hematocrit 33.8L, Mean Corpuscular Volume 90, Mean Corpuscular Hemoglobin 29.8, Mean Corpuscular Hemoglobin Concent 33.2, Red Cell Distribution Width 13.2, Platelet Count 209, Mean Platelet Volume 5.6L, Neutrophils (%) (Auto) 46.5, Lymphocytes ( %) (Auto) 31.1, Monocytes (%) (Auto) 17.4H, Eosinophils (%) (Auto) 4.2H, Basophils (%) (Auto) 0.9, Sodium Level 132L, Potassium Level 3.8, Chloride Level 100, Carbon Dioxide Level 21, Anion Gap 11, Blood Urea Nitrogen 3L, Creatinine 1.1, Estimat Glomerular Filtration Rate > 60, Glucose Level 94, Calcium Level 8.7 Height (Feet): 6 Height (Inches): 2.00 Weight (Pounds): 89 Cardiovascular: normal rate Respiratory/Chest: lungs clear Isabel Bassett MD Jul 08, 2018 14:40
--- NOTE | 2018-07-08 14:40 | NUR ---
NURSE NOTES: Dr. Sapp made aware of high blood pressure and received one time clonidine order. will administer and follow up Addendum: 07/08/18 at 1637 by GUSTAVO YEPEZ RN NURSE NOTES: Rechecked blood pressure and still noted with high bp 219/[address] Sapp, cancel discharge for today and he will put some new order. pt made aware of holding discharge and agreed to stay.
[2018-07-08] MEDS ORDERED: Lisinopril 20mg tab ORAL SCH (18:00)
--- NOTE | 2018-07-08 18:32 | Surgery Progress Note ---
Surgery Progress Note Subjective Symptoms: improved, pain absent, tolerating diet, voiding well, passing flatus , BM Objective Last 24 Hour Vital Signs Date Time Temp Pulse Resp B/P (MAP) Pulse Ox O2 Delivery O2 Flow Rate FiO2 07/08/18 18:21 70 169/92 (117) 07/08/18 17:36 219/103 07/08/18 17:36 61 219/103 07/08/18 16:00 97.3 61 18 219/103 (141) 99 07/08/18 14:52 199/103 07/08/18 13:21 171/99 07/08/18 13:21 171/99 07/08/18 12:00 97.5 69 18 171/99 (123) 99 07/08/18 09:12 Room Air 07/08/18 08:03 74 167/98 07/08/18 08:00 98.1 74 18 167/98 (121) 99 07/08/18 06:00 98.0 70 18 155/88 (110) 99 07/08/18 05:10 170/97 07/08/18 05:00 97.3 68 20 170/97 (121) 100 07/08/18 04:00 97.3 68 20 158/94 (115) 99 07/08/18 00:00 98.0 77 20 157/93 (114) 99 07/07/18 22:19 157/93 07/07/18 21:00 Room Air 07/07/18 20:49 73 153/97 07/07/18 20:00 97.3 73 18 153/97 (115) 99 I&O Intake and Output 07/07/18 07/08/18 19:00 07:00 Intake Total 1440 ml 1530 ml Output Total 150 ml 550 ml Balance 1290 ml 980 ml Intake Oral 1040 ml 980 ml IV Total 400 ml 550 ml Output Urine Total 150 ml 550 ml # Voids 3 4 # Bowel Movements 3 2 Cardiovascular: RSR Respiratory: clear Abdomen: soft, non-tender, present bowel sounds Extremities: no tenderness, no cyanosis Laboratory Tests Test 07/08/18 05:00 White Blood Count 4.7 K/UL (4.8-10.8) L Red Blood Count 3.77 M/UL (4.70-6.10) L Hemoglobin 11.2 G/DL (14.2-18.0) L Hematocrit 33.8 % (42.0-52.0) L Mean Corpuscular Volume 90 FL (80-99) Mean Corpuscular Hemoglobin 29.8 PG (27.0-31.0) Mean Corpuscular Hemoglobin Concent 33.2 G/DL (32.0-36.0) Red Cell Distribution Width 13.2 % (11.6-14.8) Platelet Count 209 K/UL (150-450) Mean Platelet Volume 5.6 FL (6.5-10.1) L Neutrophils (%) (Auto) 46.5 % (45.0-75.0) Lymphocytes (%) (Auto) 31.1 % (20.0-45.0) Monocytes (%) (Auto) 17.4 % (1.0-10.0) H Eosinophils (%) (Auto) 4.2 % (0.0-3.0) H Basophils (%) (Auto) 0.9 % (0.0-2.0) Sodium Level 132 MMOL/L (136-145) L Potassium Level 3.8 MMOL/L (3.5-5.1) Chloride Level 100 MMOL/L (98-107) Carbon Dioxide Level 21 MMOL/L (21-32) Anion Gap 11 mmol/L (5-15) Blood Urea Nitrogen 3 mg/dL (7-18) L Creatinine 1.1 MG/DL (0.55-1.30) Estimat Glomerular Filtration Rate > 60 mL/min (>60) Glucose Level 94 MG/DL (74-106) Calcium Level 8.7 MG/DL (8.5-10.1) Plan Problems: (1) Uncontrolled hypertension (2) Hyponatremia (3) Abdominal distension Assessment & Plan: CT noted - mpression: Diffusely massively dilated fluid- filled small bowel with nondilated distal ileum. Borderline dilated fluid- filled proximal colon, with nondilated distal colon. Pattern is somewhat unusual. Finding of massively dilated small bowel with the distal transition raises concern for distal small bowel obstruction. There may also be concomitant obstruction of the distal transverse colon. Evidence of tapering and slightly swirled mesentery in the right lower quadrant mesenteric root raises the possibility of an internal hernia. However, transition point of the transverse colon is remote from the small bowel transition point, so other etiologies should be considered. Other possibilities include separate small bowel and colon obstruction secondary to adhesions in 2 different locations. Findings could also be functional in nature. Consider follow-up radiographs to assess for transit of contrast and correlation with clinical findings. today multiple BM's abd exam benign now. soft, minimal distention, non tender resolving tolerating clears KUB noted. clinically improved GI contrast study okay IV fluids okay to d/c from surgical standpoint will follow with recs thank you (4) Abdominal pain Donnie Weinberg Jul 08, 2018 18:32
--- NOTE | 2018-07-08 19:31 | NUR ---
HAND-OFF: Report given to RAMESH Saleem.
--- NOTE | 2018-07-08 20:45 | General Progress Note ---
Assessment/Plan Assessment/Plan Assessment and Recs: # Failure to thrive - decreased bmi and low protein --> have ordered for cea level is 2, ca15.3 is 15, ca 19-9 is 15 --> will also obtain q3d caloric counts --> may consider mirtazapine as appetite stimulant --> xray reveals no significant sbo # Iron deficiency anemia, hgb stable 10-12 range --> okay to continue po ferrous sulfate --> hgb currently 11.9 # Uncontrolled hypertension --> currently improved --> cards eval prn basis, anti-htn started # Hyponatremia - on ivf, 3% nacl as per renal --> appreciate renal recs # Hyperlipidemia, leg edema, GERD The timing of this note does not necessarily reflect the time of the patient was seen. Greatly appreciate consultation! Subjective Constitutional: Denies: no symptoms, chills, diaphoresis, fever, malaise, weakness, other HEENT: Denies: no symptoms, eye pain, blurred vision, tearing, double vision, ear pain, ear discharge, nose pain, nose congestion, throat pain, throat swelling, mouth pain, mouth swelling, other Cardiovascular: Denies: no symptoms, chest pain, edema, irregular heart rate, lightheadedness, palpitations, syncope, other Genitourinary: Denies: no symptoms, burning, discharge, frequency, flank pain, hematuria, incontinence, pain, urgency, other Neurologic/Psychiatric: Denies: no symptoms, anxiety, depressed, emotional problems, headache, numbness, paresthesia, pre-existing deficit, seizure, tingling, tremors, weakness, other Hematologic/Lymphatic: Denies: no symptoms, anemia, easy bleeding, easy bruising, other Allergies: Coded Allergies: No Known Allergies (Unverified , 07/01/18) Subjective 07/03: no events to report, no fevers, bp much better 07/06: hgb has improved, no f/c, seen by surgeon 07/07: tolreated xray small bowel contrast well 07/08: no events, no chills, no f/c, sbp is improved Objective Last 24 Hour Vital Signs Date Time Temp Pulse Resp B/P (MAP) Pulse Ox O2 Delivery O2 Flow Rate FiO2 07/08/18 18:21 70 169/92 (117) 07/08/18 17:36 219/103 07/08/18 17:36 61 219/103 07/08/18 16:00 97.3 61 18 219/103 (141) 99 07/08/18 14:52 199/103 07/08/18 13:21 171/99 07/08/18 13:21 171/99 07/08/18 12:00 97.5 69 18 171/99 (123) 99 07/08/18 09:12 Room Air 07/08/18 08:03 74 167/98 07/08/18 08:00 98.1 74 18 167/98 (121) 99 07/08/18 06:00 98.0 70 18 155/88 (110) 99 07/08/18 05:10 170/97 07/08/18 05:00 97.3 68 20 170/97 (121) 100 07/08/18 04:00 97.3 68 20 158/94 (115) 99 07/08/18 00:00 98.0 77 20 157/93 (114) 99 07/07/18 22:19 157/93 07/07/18 21:00 Room Air 07/07/18 20:49 73 153/97 Intake and Output 07/07/18 07/08/18 18:59 06:59 Intake Total 1390 ml 1580 ml Output Total 150 ml 550 ml Balance 1240 ml 1030 ml Intake Oral 1040 ml 980 ml IV Total 350 ml 600 ml Output Urine Total 150 ml 550 ml # Voids 3 4 # Bowel Movements 3 2 Laboratory Tests 07/08/18 05:00: White Blood Count 4.7L, Red Blood Count 3.77L, Hemoglobin 11.2L, Hematocrit 33.8L, Mean Corpuscular Volume 90, Mean Corpuscular Hemoglobin 29.8, Mean Corpuscular Hemoglobin Concent 33.2, Red Cell Distribution Width 13.2, Platelet Count 209, Mean Platelet Volume 5.6L, Neutrophils (%) (Auto) 46.5, Lymphocytes ( %) (Auto) 31.1, Monocytes (%) (Auto) 17.4H, Eosinophils (%) (Auto) 4.2H, Basophils (%) (Auto) 0.9, Sodium Level 132L, Potassium Level 3.8, Chloride Level 100, Carbon Dioxide Level 21, Anion Gap 11, Blood Urea Nitrogen 3L, Creatinine 1.1, Estimat Glomerular Filtration Rate > 60, Glucose Level 94, Calcium Level 8.7 Height (Feet): 6 Height (Inches): 2.00 Weight (Pounds): 89 Objective PE: Vitals: reviewed, weak cachectic, fatigued General Appearance: NAD HEENT: normocephalic, atraumatic Neck: non-tender, normal alignment Respiratory/Chest: nromal breath sounds bilaterally Cardiovascular/Chest: normal peripheral pulses, normal rate Abdomen: normal bowel sounds, soft, nontender Extremities: normal range of motion Pj Irene MD Jul 08, 2018 20:45
--- NOTE | 2018-07-08 21:25 | NUR ---
NURSE NOTES: Pt is in bed, awake and alert. No acute distress noted.BP 189/97, scheduled BP meds: Coreg 25 mg po, hydralazine 100mg po and clonidine 0.1 mg po PRN SBP greater than 160 given. pt reports no headaches or any discomfort. Pt will be reassessed. Pt's discharge order was cancelled due to pt having high blood pressure. Dr. Sapp aware of pt's high BP and new medications were ordered in the eMAR. Pt is instructed to for assistance if needed. Bed low in position,side rails up and call light within reach. Pt will be monitored.
[2018-07-09] VITALS: BP 118/75
--- NOTE | 2018-07-09 00:30 | NUR ---
NURSE NOTES: Pt ambulated to the bathroom to void, NO BM yet, Pt passing gas . Pt's pain is managed with Dilaudid 1mg subq PRN. Pt is on 2l Nasal [place] o2 sat 93-95%. Pt will be monitored. Addendum: 07/09/18 at 0307 by JANESSA PAREKH RN RN Disregard above note; wrong patient.
--- NOTE | 2018-07-09 00:45 | NUR ---
NURSE NOTES: Pt's BP 118/75. No acute distress noted. Pt is calm in bed.
[2018-07-09 04:00] VITALS: BP 129/75
[2018-07-09] MEDS: HydrALAZINE 50mg tab ORAL SCH ×2 (05:30→14:00)
--- NOTE | 2018-07-09 07:10 | NUR ---
HAND-OFF: Report given to Nithya Sevilla RN. Pt's BP is stable. Informed Nithya to discharge pt if ok with doctor.
--- NOTE | 2018-07-09 07:52 | NUR ---
NURSE NOTES: Received report from Stiven RN. Patient is awake alert and oriented x4, no acute distress noted. Reporting no headache or vision changes. Patient reporting no pain. Patient states he is ready for discharge. Will follow up with MD and assess blood pressure. Side rails upx2 and padded, seizure precautions maintained, call light within reach, bed low and locked, will continue to monitor.
[2018-07-09 08:00] VITALS: BP 117/74
[2018-07-09] MEDS: Atorvastatin 20mg tab ORAL SCH (08:40)
[2018-07-09] MEDS: Carvedilol 25mg Tab ORAL SCH (08:40)
--- NOTE | 2018-07-09 08:48 | NUR ---
NURSE NOTES: Called the office of Dr. Bassett for discharge order. Awaiting callback from . Will continue to monitor.
[2018-07-09] MEDS ORDERED: Lisinopril 20mg tab ORAL SCH (09:00)
--- NOTE | 2018-07-09 11:09 | GI Progress Note ---
Assessment/Plan Problems: (1) Uncontrolled hypertension ICD Codes: I10 - Essential (primary) hypertension SNOMED: 84903670, 40900694 (2) Hyponatremia ICD Codes: E87.1 - Hypo-osmolality and hyponatremia SNOMED: 23430255 (3) Small bowel obstruction ICD Codes: K56.609 - Unspecified intestinal obstruction, unspecified as to partial versus complete obstruction SNOMED: 613090116 (4) Ileus ICD Codes: K56.7 - Ileus, unspecified SNOMED: 861192107 (5) Abdominal pain ICD Codes: R10.9 - Unspecified abdominal pain SNOMED: 27411075 (6) Abdominal distension ICD Codes: R14.0 - Abdominal distension (gaseous) SNOMED: 54162105 Status: stable Status Narrative Discussed with Dr. Royal Assessment/Plan Assessment - SB and Colonic dilation on CT, ? ileus or functional - resolving - HTN - Azotemia - Hyponatremia Small bowel follow-through was negative, noted that the previous colonic dilation was more likely functional in nature. Recommendations Okay for DC per GI standpoint Follow-up surgical recommendations Advance diet as tolerated Correct electrolytes zofran prn follow labs The patient was seen and examined at bedside and all new and available data was reviewed in the patients chart. I agree with the above findings, impression and plan. (Patient seen earlier today. Signature stamp does not reflect patient encounter time.). - Avery Royal MD Subjective Subjective Had large bowel movement this morning Tolerating diet Denies any abdominal pain Objective Last 24 Hour Vital Signs Date Time Temp Pulse Resp B/P (MAP) Pulse Ox O2 Delivery O2 Flow Rate FiO2 07/09/18 08:43 78 117/74 07/09/18 08:41 117/74 07/09/18 08:40 78 117/74 07/09/18 08:00 98.5 78 19 117/74 (88) 96 07/09/18 05:30 129/75 07/09/18 04:00 98.1 66 18 129/75 (93) 98 07/09/18 00:00 98.5 65 18 118/75 (89) 98 07/08/18 21:20 65 189/97 07/08/18 21:19 189/97 07/08/18 21:19 189/97 07/08/18 21:00 Room Air 07/08/18 20:00 97.5 65 189/97 (127) 07/08/18 18:21 70 169/92 (117) 07/08/18 17:36 219/103 07/08/18 17:36 61 219/103 07/08/18 16:00 97.3 61 18 219/103 (141) 99 07/08/18 14:52 199/103 07/08/18 13:21 171/99 07/08/18 13:21 171/99 07/08/18 12:00 97.5 69 18 171/99 (123) 99 Intake and Output 07/08/18 07/09/18 19:00 07:00 Intake Total 750 ml 700 ml Output Total 1000 ml Balance 750 ml -300 ml Intake Oral 500 ml 700 ml IV Total 250 ml Output Urine Total 1000 ml # Voids 2 Laboratory Tests Test 07/09/18 04:00 Hepatitis A IgM Antibody Pending Hepatitis B Surface Antigen Pending Hepatitis B Core IgM Antibody Pending Hepatitis C Antibody Pending Height (Feet): 6 Height (Inches): 2.00 Weight (Pounds): 89 General Appearance: WD/WN, no apparent distress, alert Cardiovascular: normal rate Respiratory/Chest: normal breath sounds, no respiratory distress Abdominal Exam: normal bowel sounds, non tender, soft Extremities: normal range of motion, non-tender Jayla Varela NP Jul 09, 2018 11:09
--- NOTE | 2018-07-09 11:41 | NUR ---
NURSE NOTES: Called the office of Dr. Sapp for discharge order for patient. Have not yet received callback from Dr. Bassett. Will continue to monitor.
--- NOTE | 2018-07-09 11:48 | Nephrology Progress Note ---
Assessment/Plan Problem List: (1) Uncontrolled hypertension (2) Hyponatremia Assessment: 132 (3) Ileus (4) Small bowel obstruction Assessment Hypertensive Urgency Low Na likely depletional CHF Chronic pain Plan DC cancelled 07/08 and BP meds adjusted- taking PO well Adjust BP meds done Rearrange meds per orders CXR 2D Echo noted ? DC Subjective ROS Limited/Unobtainable: No Constitutional: Reports: other - anxious to go home Objective Objective Last 24 Hour Vital Signs Date Time Temp Pulse Resp B/P (MAP) Pulse Ox O2 Delivery O2 Flow Rate FiO2 07/09/18 09:00 Room Air 07/09/18 08:43 78 117/74 07/09/18 08:41 117/74 07/09/18 08:40 78 117/74 07/09/18 08:00 98.5 78 19 117/74 (88) 96 07/09/18 05:30 129/75 07/09/18 04:00 98.1 66 18 129/75 (93) 98 07/09/18 00:00 98.5 65 18 118/75 (89) 98 07/08/18 21:20 65 189/97 07/08/18 21:19 189/97 07/08/18 21:19 189/97 07/08/18 21:00 Room Air 07/08/18 20:00 97.5 65 189/97 (127) 07/08/18 18:21 70 169/92 (117) 07/08/18 17:36 219/103 07/08/18 17:36 61 219/103 07/08/18 16:00 97.3 61 18 219/103 (141) 99 07/08/18 14:52 199/103 07/08/18 13:21 171/99 07/08/18 13:21 171/99 07/08/18 12:00 97.5 69 18 171/99 (123) 99 Intake and Output 07/08/18 07/09/18 19:00 07:00 Intake Total 750 ml 700 ml Output Total 1000 ml Balance 750 ml -300 ml Intake Oral 500 ml 700 ml IV Total 250 ml Output Urine Total 1000 ml # Voids 2 Current Medications Medications (Trade) Dose Ordered Sig/Dayan Route PRN Reason Start Time Stop Time Status Last Admin Dose Admin Acetaminophen (Tylenol) 500 mg Q4H PRN ORAL Mild Pain/Temp > 100.5 07/03/18 14:40 08/02/18 14:39 07/05/18 17:33 Atorvastatin Calcium (Lipitor) 40 mg DAILY ORAL 07/04/18 09:00 08/01/18 08:59 07/09/18 08:40 Carvedilol (Coreg) 25 mg EVERY 12 HOURS ORAL 07/03/18 21:00 08/01/18 08:59 07/09/18 08:40 Clonidine HCl (Catapres Tab) 0.1 mg Q4H PRN ORAL SBP>160 07/03/18 14:40 08/02/18 14:39 07/08/18 21:19 Gabapentin (Neurontin) 100 mg THREE TIMES A DAY ORAL 07/03/18 18:00 08/01/18 12:59 07/09/18 08:39 Gabapentin (Neurontin) 300 mg BEDTIME ORAL 07/03/18 21:00 08/01/18 20:59 07/08/18 21:20 Hydralazine HCl (Apresoline) 100 mg Q8HR ORAL 07/03/18 22:00 08/01/18 05:59 07/09/18 05:30 Lisinopril (Prinivil) 20 mg Q12HR ORAL 07/09/18 09:00 08/08/18 08:59 Nifedipine (Procardia XL) 60 mg DAILY ORAL 07/09/18 09:00 08/08/18 08:59 Laboratory Tests 07/09/18 04:00: Hepatitis A IgM Antibody [Pending], Hepatitis B Surface Antigen [Pending], Hepatitis B Core IgM Antibody [Pending], Hepatitis C Antibody [Pending] Height (Feet): 6 Height (Inches): 2.00 Weight (Pounds): 89 General Appearance: no apparent distress Cardiovascular: normal rate Respiratory/Chest: lungs clear Abdomen: soft Objective no change Edy Sapp MD Jul 09, 2018 11:48
--- NOTE | 2018-07-09 11:48 | NUR ---
NURSE NOTES: Received callback from Dr. Sapp. stated he will be up to see patient in approximately 30 minutes and will write additional prescription and discharge patient. Patient updated on plan of care and in agreement.
[2018-07-09 12:00] VITALS: BP 160/94
[2018-07-09] MEDS ORDERED: LISINOPRIL20 MG ORAL (12:25)
[2018-07-09] MEDS ORDERED: PROCARDIA XL30 MG ORAL (12:28)
--- NOTE | 2018-07-09 12:42 | Surgery Progress Note ---
Surgery Progress Note Subjective Symptoms: improved, pain absent, tolerating diet, passing flatus, BM Objective Last 24 Hour Vital Signs Date Time Temp Pulse Resp B/P (MAP) Pulse Ox O2 Delivery O2 Flow Rate FiO2 07/09/18 09:00 Room Air 07/09/18 08:43 78 117/74 07/09/18 08:41 117/74 07/09/18 08:40 78 117/74 07/09/18 08:00 98.5 78 19 117/74 (88) 96 07/09/18 05:30 129/75 07/09/18 04:00 98.1 66 18 129/75 (93) 98 07/09/18 00:00 98.5 65 18 118/75 (89) 98 07/08/18 21:20 65 189/97 07/08/18 21:19 189/97 07/08/18 21:19 189/97 07/08/18 21:00 Room Air 07/08/18 20:00 97.5 65 189/97 (127) 07/08/18 18:21 70 169/92 (117) 07/08/18 17:36 219/103 07/08/18 17:36 61 219/103 07/08/18 16:00 97.3 61 18 219/103 (141) 99 07/08/18 14:52 199/103 07/08/18 13:21 171/99 07/08/18 13:21 171/99 I&O Intake and Output 07/08/18 07/09/18 19:00 07:00 Intake Total 750 ml 700 ml Output Total 1000 ml Balance 750 ml -300 ml Intake Oral 500 ml 700 ml IV Total 250 ml Output Urine Total 1000 ml # Voids 2 Cardiovascular: RSR Respiratory: clear Abdomen: soft, non-tender, present bowel sounds, non-distended Extremities: no edema, no tenderness, no cyanosis Laboratory Tests Test 07/09/18 04:00 Hepatitis A IgM Antibody Pending Hepatitis B Surface Antigen Pending Hepatitis B Core IgM Antibody Pending Hepatitis C Antibody Pending Plan Problems: (1) Uncontrolled hypertension (2) Hyponatremia (3) Abdominal distension Assessment & Plan: CT noted - mpression: Diffusely massively dilated fluid- filled small bowel with nondilated distal ileum. Borderline dilated fluid- filled proximal colon, with nondilated distal colon. Pattern is somewhat unusual. Finding of massively dilated small bowel with the distal transition raises concern for distal small bowel obstruction. There may also be concomitant obstruction of the distal transverse colon. Evidence of tapering and slightly swirled mesentery in the right lower quadrant mesenteric root raises the possibility of an internal hernia. However, transition point of the transverse colon is remote from the small bowel transition point, so other etiologies should be considered. Other possibilities include separate small bowel and colon obstruction secondary to adhesions in 2 different locations. Findings could also be functional in nature. Consider follow-up radiographs to assess for transit of contrast and correlation with clinical findings. today multiple BM's abd exam benign now. soft, minimal distention, non tender resolving tolerating clears KUB noted. clinically improved GI contrast study okay IV fluids okay to d/c from surgical standpoint will follow with recs thank you (4) Abdominal pain Donnie Weinberg Jul 09, 2018 12:42
[2018-07-09 14:00] VITALS: BP 160/94
--- NOTE | 2018-07-09 14:00 | NUR ---
NURSE NOTES: Patient discharged. No acute distress on discharge. Dr. Sapp aware of patient's blood pressure at noon and stated ok to discharge the patient. Discharge order was received from Dr. Bassett. Patient asymptomatic with no complaints of headache, blurry vision, pain or other symptoms. Patient given Rx, belongings, and discharge instructions. Patient reports understanding of discharge education. IV removed intact. Patient escorted off unit by LEASING SPECIALIST to [facility].
--- NOTE | 2018-07-09 16:22 | General Progress Note ---
Assessment/Plan Assessment/Plan Assessment and Recs: # Failure to thrive - decreased bmi and low protein --> have ordered for cea level is 2, ca15.3 is 15, ca 19-9 is 15 --> will also obtain q3d caloric counts --> may consider mirtazapine as appetite stimulant --> xray reveals no significant sbo --> okay to dc # Iron deficiency anemia, hgb stable 10-12 range --> okay to continue po ferrous sulfate --> hgb currently 11.9 # Uncontrolled hypertension --> currently improved --> cards eval prn basis, anti-htn started # Hyponatremia - on ivf, 3% nacl as per renal --> appreciate renal recs # Hyperlipidemia, leg edema, GERD The timing of this note does not necessarily reflect the time of the patient was seen. Greatly appreciate consultation! Subjective Constitutional: Denies: no symptoms, chills, diaphoresis, fever, malaise, weakness, other Cardiovascular: Denies: no symptoms, chest pain, edema, irregular heart rate, lightheadedness, palpitations, syncope, other Genitourinary: Denies: no symptoms, burning, discharge, frequency, flank pain, hematuria, incontinence, pain, urgency, other Neurologic/Psychiatric: Denies: no symptoms, anxiety, depressed, emotional problems, headache, numbness, paresthesia, pre-existing deficit, seizure, tingling, tremors, weakness, other Endocrine: Denies: no symptoms, excessive sweating, flushing, intolerance to cold, intolerance to heat, increased hunger, increased thirst, increased urine, unexplained weight gain, unexplained weight loss, other Hematologic/Lymphatic: Denies: no symptoms, anemia, easy bleeding, easy bruising, other Allergies: Coded Allergies: No Known Allergies (Unverified , 07/01/18) Subjective 07/03: no events to report, no fevers, bp much better 07/06: hgb has improved, no f/c, seen by surgeon 07/07: tolreated xray small bowel contrast well 07/08: no events, no chills, no f/c, sbp is improved 07/09: no fevers or chills noted, no major changes Objective Last 24 Hour Vital Signs Date Time Temp Pulse Resp B/P (MAP) Pulse Ox O2 Delivery O2 Flow Rate FiO2 07/09/18 14:00 160/94 07/09/18 12:00 98.2 61 18 160/94 (116) 99 07/09/18 09:00 Room Air 07/09/18 08:43 78 117/74 07/09/18 08:41 117/74 07/09/18 08:40 78 117/74 07/09/18 08:00 98.5 78 19 117/74 (88) 96 07/09/18 05:30 129/75 07/09/18 04:00 98.1 66 18 129/75 (93) 98 07/09/18 00:00 98.5 65 18 118/75 (89) 98 07/08/18 21:20 65 189/97 07/08/18 21:19 189/97 07/08/18 21:19 189/97 07/08/18 21:00 Room Air 07/08/18 20:00 97.5 65 189/97 (127) 07/08/18 18:21 70 169/92 (117) 07/08/18 17:36 219/103 07/08/18 17:36 61 219/103 Intake and Output 07/08/18 07/09/18 19:00 07:00 Intake Total 750 ml 700 ml Output Total 1000 ml Balance 750 ml -300 ml Intake Oral 500 ml 700 ml IV Total 250 ml Output Urine Total 1000 ml # Voids 2 Laboratory Tests 07/09/18 04:00: Hepatitis A IgM Antibody [Pending], Hepatitis B Surface Antigen [Pending], Hepatitis B Core IgM Antibody [Pending], Hepatitis C Antibody [Pending] Height (Feet): 6 Height (Inches): 2.00 Weight (Pounds): 89 Objective PE: Vitals: reviewed, weak cachectic, fatigued General Appearance: NAD HEENT: normocephalic, atraumatic Neck: non-tender, normal alignment Respiratory/Chest: nromal breath sounds bilaterally Cardiovascular/Chest: normal peripheral pulses, normal rate Abdomen: normal bowel sounds, soft, nontender Extremities: normal range of motion Pj Irene MD Jul 09, 2018 16:22
--- NOTE | 2018-07-10 12:59 | Discharge Summary ---
Discharge Summary Discharge Summary _ DATE OF ADMISSION: 07/01/2018 DATE OF DISCHARGE: 07/09/2018 DISCHARGED BY: Dr. Isabel Maya CONSULTANTS: Dr. Edy Remy [facility] HOSPITAL COURSE: Patient is a 62-year-old male, who was brought in to ED via EMS due to increased blood pressure. Patient has history of hypertension and had been recently of his medication. He reported increased generalized weakness. He has history of congestive heart failure and is currently a smoker. He denied fever or vomiting. He has history of chronic back pain for which she takes gabapentin. On evaluation at the ED, blood pressure was 222/117. He was given IV hydralazine as well as a dose of Coreg. EKG showed left ventricular hypertrophy with nonspecific ST changes. Blood work did not show any leukocytosis. Troponin was negative. BNP was somewhat elevated. Sodium was low 127. Creatinine elevated to 1.5. He was then admitted for uncontrolled hypertension and hyponatremia. Patient was admitted to telemetry. Dry Press Operator was consulted. Patient was resumed on nifedipine ER 90 mg daily. He was continued on hydralazine. He was started on minoxidil 5 mg twice daily. Echocardiogram showed normal LV systolic function with mild LV diastolic dysfunction and normal intracardiac filling pressure. He was given Lipitor. Electrolytes and kidney function was monitored. He had low sodium, likely depletional. He was given 3% saline solution. Dr. Irene was consulted for failure to thrive. Patient had decreased BMI and low protein. CEA was normal. He had iron deficiency anemia and was continued on ferrous sulfate. Hemoglobin levels were stable. Abdomen had been distended. He was passing flatus and diarrhea. Surgery was called to evaluate patient. KUB showed distended gas-filled small bowel loops. There was evidence of prior right inguinal region mesh hernia repair. CT of the abdomen showed massively diffuse dilated fluid filled small bowel with nondilated distal ileum. Findings of massively dilated small bowel with a distal transition raises concern for distal small bowel obstruction. There was also evidence of possible internal hernia. Patient was placed on n.p.o. Patient multiple diarrhea post CT examination. He underwent small bowel follow- through. There was brisk transit of contrast through the small bowel indicating absence of small bowel obstruction. Abdominal examination was benign. Abdomen was soft with minimal distention and nontender. He was started on clear liquid diet. Diet was advanced and was tolerating diet well. Blood pressure with better control. He was eventually discharged home. FINAL DIAGNOSES: Abdominal distention due to functional ileus Failure to thrive with decreased BMI and low protein/severe protein calorie malnutrition Iron deficiency anemia Uncontrolled hypertension/hypertensive urgency Hyponatremia, likely depletional Hyperlipidemia CHF Chronic pain DISPOSITION: Patient was discharged home. DISCHARGE MEDICATIONS: Refer to Discharge Medication List. DISCHARGE INSTRUCTIONS: Follow-up in a week. I have been assigned to complete a discharge summary on this account, I was not involved with the patient's management. Khalida Tracey NP Jul 10, 2018 12:59
--- NOTE | 2018-07-10 17:58 | Cardiology Report ---
APPROVED REPORT EKG Measurement Heart [id number] Normal sinus rhythm Minimal voltage criteria for LVH, may be normal variant Septal infarct, age undetermined Abnormal ECG
== END 2018-07-09 15:23 | disposition home or self-care (01) | DRG 388 ==
LOC: EDBD 15:40 → EMR 16:16 → 2E 17:26 → EDBEDREQ 17:43 → 2E 18:03 → 3E 07-03 14:37
DX: K56.7 Ileus, unspecified (principal); E43 Unspecified severe protein-calorie malnutrition; I50.32 Chronic diastolic (congestive) heart failure; E87.1 Hypo-osmolality and hyponatremia; I11.0 Hypertensive heart disease with heart failure; I10 Essential (primary) hypertension; R62.7 Adult failure to thrive; D50.9 Iron deficiency anemia, unspecified; E78.5 Hyperlipidemia, unspecified; I16.0 Hypertensive urgency; G89.29 Other chronic pain; F17.200 Nicotine dependence, unspecified, uncomplicated; M54.9 Dorsalgia, unspecified; Z68.22 Body mass index [BMI] 22.0-22.9, adult
CPT/HCPCS: 36415; 71045; 74018; 74019; 74176; 74250; 80048; 80053; 80061; 80307; 81001; 82270; 82378; 82550; 82728; 82977; 83690; 83735; 83880; 83930; 83935; 84100; 84300; 84443; 84484; 84550; 85007; 85025; 85060; 85610; 85651; 85730; 86140; 86300; 86705; 86709; 86803; 87340; 93005; 93306; 94640; 94664; 96374; 96375; 99285; J2405; J7620